=== PATIENT | female | born 2000 | race Caucasian/White ===

== ENCOUNTER 2023-03-23 21:01 | Outpatient (REF) | payer OTHER, SELFPAY ==
[2023-03-27 12:09] LABS: Pap IG (Image Guided) Note (.)
== END 2023-03-23 21:02 | disposition home or self-care (01) ==
LOC: LAB 21:01
PROVIDERS: Visit Provider Obstetrics & Gynecology
DX: R87.612 Low grade squamous intraepithelial lesion on cytologic smear of cervix (LGSIL) (principal); Z12.4 Encounter for screening for malignant neoplasm of cervix
CPT/HCPCS: G0145

== ENCOUNTER 2023-09-22 22:54 | Outpatient (REF) | payer OTHER, SELFPAY ==
[2023-09-25 15:08] LABS: HPV Aptima Negative (Negative); Pap IG (Image Guided) Note (.)
== END 2023-09-22 22:55 | disposition home or self-care (01) ==
LOC: LAB 22:54
PROVIDERS: Visit Provider Obstetrics & Gynecology
DX: R87.610 Atypical squamous cells of undetermined significance on cytologic smear of cervix (ASC-US) (principal)
CPT/HCPCS: 87624

== ENCOUNTER 2024-05-18 19:14 | Outpatient (REF) | payer OTHER, SELFPAY ==
--- OUTSIDE RECORDS SUMMARY | 2024-05-18 19:22 | XMS_ITS | CCD ---
Author Organization [facility] Care Team Providers Care Bell Clerk Name Role Phone HARSHAL ROLDAN Referring Unavailable CAROLE MEYER Primary Care Unavailable Carole Meyer A Primary Care Provider [phone] AMANDEEP ., DR KAUFFMAN Admitting Unavailabl e KARASIK ., DR KAUFFMAN Attending Unavailabl e KARASIK ., DR KAUFFMAN Consulting Unavailabl e KARASIK ., DR KAUFFMAN Admitting Unavailabl e KARASIK ., DR KAUFFMAN Attending Unavailabl e KARASIK ., DR KAUFFMAN Consulting Unavailabl e KARASIK ., DR KAUFFMAN Admitting Unavailabl e KARASIK ., DR KAUFFMAN Attending Unavailabl e KARASIK ., DR KAUFFMAN Consulting Unavailabl e [facility] Primary Care Provider GINNA HINES Attending Unavailable GLOVER, ADAMS Referring Unavailable GLOVER, ADAMS Primary Care Unavailable MANOHAR WARNER Attending Unavailable GLOVER, ADAMS Referring Unavailable GLOVER, ADAMS Primary Care Unavailable GLOVER, ADAMS Referring Unavailable GLOVER, ADAMS Primary Care Unavailable GLOVER, ADAMS Referring Unavailable GLOVER, ADAMS Primary Care Unavailable GLOVER, ADAMS Attending Unavailable GLOVER, ADAMS Referring Unavailable GLOVER, ADAMS Primary Care Unavailable GLOVER, ADAMS Attending Unavailable GLOVER, ADAMS Referring Unavailable GLOVER, ADAMS Primary Care Unavailable GLOVER, ADAMS Attending Unavailable GLOVER, ADAMS Referring Unavailable GLOVER, ADAMS Primary Care Unavailable GLOVER, ADAMS Attending Unavailable GLOVER, ADAMS Referring Unavailable GLOVER, ADAMS Primary Care Unavailable GLOVER, ADAMS Attending Unavailable GLOVER, ADAMS Referring Unavailable GLOVER, ADAMS Primary Care Unavailable GLOVER, ADAMS Attending Unavailable GLOVER, ADAMS Referring Unavailable GLOVER, ADAMS Primary Care Unavailable GLOVER, ADAMS Referring Unavailable GLOVER, ADAMS Primary Care Unavailable GLOVER, ADAMS Referring Unavailable GLOVER, ADAMS Primary Care Unavailable GLOVER, ADAMS Referring Unavailable GLOVER, ADAMS Primary Care Unavailable Allergies Allergy Classification Reported Allergen(s) Allergy Type Date of Onset Reaction(s) Facility (4 sources) Penicillins; Translations: [PENICILLINS] Drug allergy (disorder) 0 [facility] (1 source) Sulfonamides (Antibiotic) Drug allergy (disorder) 0 [facility] (11 sources) Penicillins Propensity to adverse reactions to drug 7 [facility] (14 sources) Sulfonamides (Antibiotic); Translations: [SULFA (SULFONAMIDE ANTIBIOTICS)] Propensity to adverse reactions to drug 7 [facility] Medications Current Medications Medication Drug Class(es) Dates Sig (Normalized) Sig (Original) chlorthalidone 25 mg oral tablet (11 sources) Thiazide-like Diuretic Start: 3 take 1 tablet by mouth once daily chlorthalidone (HYGROTON) 25 mg tablet Take 1 tablet (25 mg total) by mouth daily. 30 tablet 3 08/06/2023 Active 24 hr desvenlafaxine succinate 100 mg extended release oral tablet (11 sources) Serotonin and Norepinephrine Reuptake Inhibitor Start: 3 take 1 tablet by mouth every twenty-four hours in the morning desvenlafaxine (PRISTIQ) 100 mg 24 hr tablet Indications: Moderate episode of recurrent major depressive disorder (CMS-HCC) Take 1 tablet (100 mg total) by mouth in the morning. 90 tablet 3 06/08/2023 Active Ethinyl Estradiol / norgestimate (11 sources) Progestin, Estrogen Start: 0 TRI-SPRINTEC, 28, 0.18/0.215/0.25 mg-35 mcg (28) per tablet lisdexamfetamine dimesylate 40 mg oral capsule (11 sources) Central Nervous System Stimulant Start: End: take 1 capsule by mouth once daily in the morning lisdexamfetamine (VYVANSE) 40 mg capsule Indications: Attention deficit hyperactivity disorder (ADHD), combined type Take 1 capsule (40 mg total) by mouth in the morning. Max Daily Amount: 40 mg. 30 capsule 0 11/06/2023 Active Start: 07-21-2023 take 1 capsule by mo ut once daily in the morning lisdexamfetamine (VYVANSE) 40 mg capsule Indications: Attention deficit hyperactivity disorder (ADHD), combined type Take 1 capsule (40 mg total) by mouth in the morning. Max Daily Amount: 40 mg. 30 capsule 0 07/21/2023 Active loperamide hydrochloride 2 mg oral tablet (7 sources) Opioid Agonist Start: 09-17-2023 take 1 tablet by mouth four times daily as needed for diarrhea loperamide (IMODIUM A-D) 2 mg tablet Take 1 tablet (2 mg total) by mouth 4 (four) times a day as needed for diarrhea. 30 tablet 0 09/17/2023 Active ondansetron 4 mg disintegrating oral tablet (8 sources) Serotonin-3 Receptor Antagonist Start: 12-02-2023 take 1 tablet by mouth every eight hours as needed for nausea and vomiting ondansetron ODT (ZOFRAN ODT) 4 mg disintegrating tablet Dissolve 1 tablet (4 mg total) on tongue every 8 (eight) hours as needed for nausea or vomiting. 20 tablet 0 12/02/2023 Active Start: 03-04-2022 End: 11-04-2023 ondansetron ODT (ZOFRAN ODT) 4 mg disintegrating tablet Dissolve 1 tablet (4 mg total) on tongue 3 (three) times a day as needed for nausea for up to 3 doses. 3 tablet 0 03/04/2022 11/04/2023 Discontinued (Therapy completed) microencapsulated potassium chloride 20 meq extended release oral tablet (9 sources) Start: 11-05-2023 take 1 tablet by mouth in the morning potassium chloride (KLOR-CON M 20) 20 MEQ CR tablet Take 1 tablet (20 mEq total) by mouth in the morning. 30 tablet 2 11/05/2023 Active Start: 09-14-2023 End: 09-28-2023 take 1 tablet by mouth in the morning potassium chloride (KLOR-CON M 20) 20 MEQ CR tablet Take 1 tablet (20 mEq total) by mouth in the morning and 1 tablet (20 mEq total) before bedtime. Do all this for 14 days. 28 tablet 0 09/14/2023 09/28/2023 Active semaglutide, weight loss, (WEGOVY) 0.25 mg/0.5 mL pen injector (7 sources) Start: 11-26-2023 semaglutide, w eight loss, (WEGOVY) 0.25 mg/0.5 mL pen injector Indications: Encounter for weight management , Obesity (BMI 30-39.9) , Mixed hyperlipidemia , Primary hypertension Inject 0.5 mL (0.25 mg total) under the skin every 7 days. 2 mL 0 11/26/2023 Active Start: 11-04-2023 End: 11-26-2023 semaglutide, weight loss, (W EGOVY) 0.25 mg/0.5 mL pen injector Indications: Encounter for weight management , Obesity (BMI 30-39.9) Inject 0.5 mL (0.25 mg total) under the skin every 7 days. 2 mL 0 11/04/2023 11/26/2023 Discontinued (Reorder) Start: 11-04-2023 semaglutide, w eight loss, (WEGOVY) 0.25 mg/0.5 mL pen injector Indications: Encounter for weight management , Obesity (BMI 30-39.9) Inject 0.5 mL (0.25 mg total) under the skin every 7 days. 2 mL 0 11/04/2023 Active valACYclovir 1000 mg oral tablet (17 sources) Herpesvirus Nucleoside Analog DNA Polymerase Inhibitor, Herpes Simplex Virus Nucleoside Analog DNA Polymerase Inhibitor, Herpes Zoster Virus Nucleoside Analog DNA Polymerase Inhibitor Start: 08-27-2020 valACYclovir (VALTR EX) 1000 mg tablet Start: 07-20-2019 End: 11-04-2023 take 1 tablet by mouth once daily as needed valACYclovir (VALTREX) 500 mg tablet Take 1 tablet (500 mg total) by mouth daily as needed. 0 07/20/2019 11/04/2023 Discontinued (Duplicate Listing) Completed/Discontinued Medications Medication Drug Class(es) Dates Sig (Normalized) Sig (Original) hydrOXYzine pamoate 25 mg oral capsule (2 sources) Antihistamine Start: 04-27-2023 End: 09-14-2023 take 1 capsule by mouth three times daily as needed for anxiety hydrOXYzine (VISTARIL) 25 mg capsule Indications: Anxiety with depression Take 1 capsule (25 mg total) by mouth 3 (three) times a day as needed for anxiety. 270 capsule 1 04/27/2023 09/14/2023 Discontinued (Drug interaction) Problems Active Problems Problem Classification Problem Date Documented Date Episodic/Chronic Allergic reactions (2 sources) Urticaria, unspecified; Translations: [Urticaria, unspecified] Onset: 03-23-2024 Episodic Anxiety disorders (20 sources) Generalized anxiety disorder; Translations: [Generalized anxiety disorder] Onset: 03-10-2019 03-10-2019 Chronic Attention-deficit, conduct, and disruptive behavior disorders (11 sources) Attention deficit hyperactivity disorder; Translations: [Attention-deficit hyperactivity disorder, unspecified type] Onset: 09-02-2019 03-29-2020 Chronic Attention-deficit, conduct, and disruptive behavior disorders (1 source) Attention-deficit hyperactivity disorder, combined type; Translations: [Attention-deficit hyperactivity disorder, combined type] Onset: 03-29-2020 Chronic Disorders of lipid metabolism (2 sources) Mixed hyperlipidemia; Translations: [Mixed hyperlipidemia] Onset: 03-23-2024 11-26-2023 Chronic Essential hypertension (16 sources) Essential hypertension; Translations: [Essential (primary) hypertension] Onset: 08-06-2023 08-06-2023 Chronic Immunizations and screening for infectious disease (1 source) Encounter for screening for human papillomavirus (HPV); Translations: [ENC SCREENING HUMAN PAPILLOMAVIRUS] Onset: 11-04-2022 Episodic Malaise and fatigue (3 sources) Chronic fatigue, unspecified; Translations: [Chronic fatigue, unspecified] Onset: 09-14-2023 Chronic Other aftercare (1 source) Other custodial (current) drug therapy; Translations: [Other termite treater (current) drug therapy] Onset: 02-11-2024 Episodic Other connective tissue disease (1 source) Pain in right lower leg; Translations: [Pain of right lower leg] Episodic Other nutritional; endocrine; and metabolic disorders (2 sources) Body mass index 30+ - obesity; Translations: [Obesity, unspecified] 11-04-2023 Chronic Other nutritional; endocrine; and metabolic disorders (1 source) Obesity Onset: 02-11-2024 Chronic Other nutritional; endocrine; and metabolic disorders (1 source) Obesity, unspecified; Translations: [Obesity, unspecified] Onset: 11-04-2023 Chronic Residual codes; unclassified (1 source) Other hypersomnia; Translations: [Other hypersomnia] Onset: 09-14-2023 Chronic Unclassified (1 source) GI Problem Onset: 03-23-2024 Past or Other Problems Problem Classification Problem Date Documented Da te Episodic/Chronic Administrative/social admission (3 sources) Patient encounter status; Translations: [Persons encountering health services in other specified circumstances] Onset: 11-04-2023 11-04-2023 Episodic Cancer of cervix (1 source) Atypical squamous cells of undetermined significance on cytologic smear of cervix (ASC-US); Translations: [ASC US ON CYTOLOGIC SMEAR OF CERVIX] Onset: 01-10-2022 Episodic Fluid and electrolyte disorders (4 sources) Hypokalemia; Translations: [Hypokalemia] Onset: 11-04-2023 11-04-2023 Episodic Mood disorders (11 sources) Mood disorders Onset: 07-02-2023 07-02-2023 Nausea and vomiting (2 sources) Nausea; Translations: [Nausea] Onset: 12-18-2023 Episodic Other screening for suspected conditions (not mental disorders or infectious disease) (6 sources) Encounter for screening for malignant neoplasm of cervix; Translations: [Encounter for screening for lipoid disorders] Onset: 11-03-2022 Episodic Results Test Name Value Interpretation Reference Range Facility CRP [Mass/Vol]on 04-20-2024 C REACTIVE PROTEIN 1.4 mg/dL High 0.000-0.744 [facility] Comment on above: Performed By: #### 8 2477-1, 1987-, 16821-0 #### [facility] ([id number]) [address], [address] [place] [address] ESR Photometric method (Bld) [Velocity]on 04-20-2024 ESR, ERYTHROCYTE SEDIMENTATION RATE <1 Normal 0-20 [facility] Comment on above: Result Comment: (LES S THAN) Performed By: #### 8 2477-, 1987-12, 17881-8 #### [facility] ([id number]) [address], [address] [place] [address] Nuclear Ab IA Ql (S)on 04-20 HIREN Screen w/reflex Negative Normal NEG [facility] Comment on above: Result Comment: Testing performed using multiplex flow immunoassay. Eleven different antigens associated with systemic autoimmune diseases (dsDNA,Sm,Sm/LAUNDRY ROUTE DRIVER,LAUNDRY ROUTE DRIVER,Chromatin, SSA,SSB,Indy-1,Scl70,Ribo P,Centromere B) are included in this screening test. Performed By: #### 8 2477-1, 1987-12, 84230-7 #### [facility] ([id number]) [address], [address] [place] [address] BASIC METABOLIC PANLon 01-27 Anion gap [Moles/Vol] 15 mmol/L Normal 5-15 [facility] Comment on above: Performed By: #### B MP #### [facility] ([id number]) [address], [address] [place] [address] Calcium [Mass/Vol] 9.8 mg/dL Normal 8.5-10.5 [facility] Comment on above: Performed By: #### B MP #### [facility] ([id number]) [address], [address] [place] [address] Chloride [Moles/Vol] 94 mmol/L Low 98-109 [facility] Comment on above: Performed By: #### B MP #### [facility] ([id number]) [address], [address] [place] [address] CO2 [Moles/Vol] 30 mmol/L Normal 22-32 [facility] Comment on above: Performed By: #### B MP #### [facility] ([id number]) [address], [address] [place] [address] Creatinine [Mass/Vol] 0.86 mg/dL Normal 0.40-1.00 [facility] Comment on above: Result Comment: METH OD TRACEABLE TO IDMS STANDARD Performed By: #### B MP #### [facility] ([id number]) [address], [address] [place] [address] eGFR (CKD-EPI) NON-RACE DEPENDENT >90 Normal >59 [facility] Comment on above: Result Comment: Reported eGFR is based on the CKD-EPI 2020 equation that does not use a race coefficient. Performed By: #### B MP #### [facility] ([id number]) [address], [address] [place] [address] Glucose [Mass/Vol] 72 mg/dL Normal 65-99 [facility] Comment on above: Performed By: #### B MP #### [facility] ([id number]) [address], [address] [place] [address] Potassium [Moles/Vol] 3.0 mmol/L Low 3.5-5.0 [facility] Comment on above: Performed By: #### B MP #### [facility] ([id number]) [address], [address] [place] [address] Sodium [Moles/Vol] 139 mmol/L Normal 134-146 [facility] Comment on above: Performed By: #### B MP #### [facility] ([id number]) [address], [address] [place] [address] Urea nitrogen [Mass/Vol] 20 mg/dL Normal 5-23 [facility] Comment on above: Performed By: #### B MP #### [facility] ([id number]) [address], [address] [place] [address] BASIC METABOLIC PANLon 12-20 Anion gap [Moles/Vol] 8 mmol/L Normal 5-15 [facility] Comment on above: Performed By: #### B MP #### [facility] ([id number]) [address], [address] [place] [address] Calcium [Mass/Vol] 9.7 mg/dL Normal 8.5-10.5 [facility] Comment on above: Performed By: #### B MP #### [facility] ([id number]) [address], [address] [place] [address] Chloride [Moles/Vol] 99 mmol/L Normal 98-109 [facility] Comment on above: Performed By: #### B MP #### [facility] ([id number]) [address], [address] [place] [address] CO2 [Moles/Vol] 35 mmol/L High 22-32 [facility] Comment on above: Performed By: #### B MP #### [facility] ([id number]) [address] [place] [address] Creatinine [Mass/Vol] 0.84 mg/dL Normal 0.40-1.00 [facility] Comment on above: Result Comment: METH OD TRACEABLE TO IDMS STANDARD Performed By: #### B MP #### [facility] ([id number]) [address], [address] [place] [address] eGFR (CKD-EPI) NON-RACE DEPENDENT >90 Normal >59 [facility] Comment on above: Result Comment: Reported eGFR is based on the CKD-EPI 2021 equation that does not use a race coefficient. Performed By: #### B MP #### [facility] ([id number]) [address], [address] [place] [address] Glucose [Mass/Vol] 91 mg/dL Normal 65-99 [facility] Comment on above: Performed By: #### B MP #### [facility] ([id number]) [address] [place] [address] Potassium [Moles/Vol] 3.0 mmol/L Low 3.5-5.0 [facility] Comment on above: Performed By: #### B MP #### [facility] ([id number]) [address], [address] [place] [address] Sodium [Moles/Vol] 142 mmol/L Normal 134-146 [facility] Comment on above: Performed By: #### B MP #### [facility] ([id number]) [address], [address] [place] [address] Urea nitrogen [Mass/Vol] 19 mg/dL Normal 5-23 [facility] Comment on above: Performed By: #### B MP #### [facility] ([id number]) [address], [address] [place] [address] BASIC METABOLIC PANLon 11-03 Anion gap [Moles/Vol] 12 mmol/L Normal 5-15 [facility] Comment on above: Performed By: #### B MP #### [facility] ([id number]) [address], [address] [place] [address] Calcium [Mass/Vol] 9.7 mg/dL Normal 8.5-10.5 [facility] Comment on above: Performed By: #### B MP #### [facility] ([id number]) [address], [address] [place] [address] Chloride [Moles/Vol] 96 mmol/L Low 98-109 [facility] Comment on above: Performed By: #### B MP #### [facility] ([id number]) [address], [address] [place] [address] CO2 [Moles/Vol] 32 mmol/L Normal 22-32 [facility] Comment on above: Performed By: #### B MP #### [facility] ([id number]) [address], [address] [place] [address] Creatinine [Mass/Vol] 0.82 mg/dL Normal 0.40-1.00 [facility] Comment on above: Result Comment: METH OD TRACEABLE TO IDMS STANDARD Performed By: #### B MP #### [facility] ([id number]) [address], [address] [place] [address] eGFR (CKD-EPI) NON-RACE DEPENDENT >90 Normal >59 [facility] Comment on above: Result Comment: Reported eGFR is based on the CKD-EPI 2020 equation that does not use a race coefficient. Performed By: #### B MP #### [facility] ([id number]) [address], [address] [place] [address] Glucose [Mass/Vol] 99 mg/dL Normal 65-99 [facility] Comment on above: Performed By: #### B MP #### [facility] ([id number]) [address], [address] [place] [address] Potassium [Moles/Vol] 3.1 mmol/L Low 3.5-5.0 [facility] Comment on above: Performed By: #### B MP #### [facility] ([id number]) [address], [address] [place] [address] Sodium [Moles/Vol] 140 mmol/L Normal 134-146 [facility] Comment on above: Performed By: #### B MP #### [facility] ([id number]) [address], [address] [place] [address] Urea nitrogen [Mass/Vol] 13 mg/dL Normal 5-23 [facility] Comment on above: Performed By: #### B MP #### [facility] ([id number]) [address], [address] [place] [address] Basic Metabolic Panelon 03-0 Anion gap [Moles/Vol] 12 mmol/L 5 - 15 mmol/L [facility] Calcium [Mass/Vol] 9.7 mg/dL 8.5 - 10. 5 mg/dL [facility] Chloride [Moles/Vol] 96 mmol/L Low 98 - 10 9 mmol/L [facility] CO2 [Moles/Vol] 32 mmol/L 22 - 32 mmol/L [facility] Creatinine [Mass/Vol] 0.82 mg/dL 0.40 - 1.00 mg/dL [facility] Comment on above: METHOD TRACEABLE TO [facility] STANDARD eGFR (CKD-EPI)non-race dependent - PINF [facility] Comment on above: Reported eGFR is based on the CKD-EPI 2020 equation that does not use a race coefficient. Glucose [Mass/Vol] 99 mg/dL 65 - 99 mg/dL [facility] Interpretation and review of laboratory results Abnormal [facility] Potassium [Moles/Vol] 3.1 mmol/L Low 3.5 - 5.0 mmol/L [facility] Sodium [Moles/Vol] 140 mmol/L 134 - 146 mmol/L [facility] Urea nitrogen [Mass/Vol] 13 mg/dL 5 - 23 mg/dL [facility] CBC AND AUTO DIFFon 09-14-19 24 ABSOLUTE BASOPHIL 0.0 X10E9/L Normal 0.0-0.2 [facility] Comment on above: Performed By: #### C KARISSA LUZ, 81308-4, TSHR, 2132-05, 11714-0 #### [facility] ([id number]) [address], [address] [place] [address] ABSOLUTE NEUTROPHIL 7.9 X10E9/L High 1.5-6.6 [facility] Comment on above: Performed By: #### C BCA, CMP, 41177-8, TSHR, 2132-05, 23189-9 #### [facility] ([id number]) [address], [address] [place] [address] Basophils/100 WBC (Bld) 0.2 % Normal [facility] Comment on above: Performed By: #### C BCA, CMP, 55848-7, TSHR, 2132-05, #### [facility] ([id number]) [address] [place] [address] Eosinophils (Bld) [#/Vol] 0.0 10*3/uL Normal 0.0-0.4 [facility] Comment on above: Performed By: #### C BCA, CMP, 63221-4, TSHR, 2132-05, 02779-9 #### [facility] ([id number]) [address] [place] [address] Eosinophils/100 WBC (Bld) 0.0 % Normal [facility] Comment on above: Performed By: #### C BCA, CMP, 96379-7, TSHR, 2132-05, 65451-7 #### [facility] ([id number]) [address] [place] [address] Erythrocyte distribution width (RBC) [Ratio] 13.8 % Normal 11.5-15.0 [facility] Comment on above: Performed By: #### C BCA, CMP, 72466-2, TSHR, 2132-05, 92161-4 #### [facility] ([id number]) [address] [place] [address] Hematocrit (Bld) [Volume fraction] 37.5 % Normal 35-47 [facility] Comment on above: Performed By: #### C BCA, CMP, 55285-2, TSHR, 2132-05, 05900-8 #### [facility] ([id number]) [address] [place] [address] Hemoglobin (Bld) [Mass/Vol] 12.8 g/dL Normal 11.7-15.5 [facility] Comment on above: Performed By: #### C BCA, CMP, 58309-6, TSHR, 2132-05, 25547-1 #### [facility] ([id number]) [address] [place] [address] Lymphocytes (Bld) [#/Vol] 1.8 10*3/uL Normal 1.0-3.5 [facility] Comment on above: Performed By: #### C BCA, CMP, 03952-7, TSHR, 2132-05, 60626-0 #### [facility] ([id number]) [address], [facility] [address] [place] [address] Lymphocytes/100 WBC (Bld) 17.6 % Normal [facility] Comment on above: Performed By: #### C BCA, CMP, 38016-7, TSHR, 2132-05, 14041-6 #### [facility] ([id number]) [address], [facility] [address] [place] [address] MCH (RBC) [Entitic mass] 30.5 pg Normal 27-34 [facility] Comment on above: Performed By: #### C BCA, CMP, 02967-7, TSHR, 2132-05, 43635-0 #### [facility] ([id number]) [address], [facility] [address] [place] [address] MCHC (RBC) [Mass/Vol] 34.0 g/dL Normal 32-36 [facility] Comment on above: Performed By: #### C BCA, CMP, 47535-5, TSHR, 2132-05, 65775-7 #### [facility] ([id number]) [address], [facility] [address] [place] [address] MCV (RBC) [Entitic vol] 90 fL Normal 80-100 [facility] Comment on above: Performed By: #### C BCA, CMP, 97799-8, TSHR, 2132-05, 34075-9 #### [facility] ([id number]) [address] [place] [address] Monocytes (Bld) [#/Vol] 0.7 10*3/uL Normal 0-0.9 [facility] Comment on above: Performed By: #### C BCA, CMP, 96451-4, TSHR, 2132-05, 42711-8 #### [facility] ([id number]) [address], [address] [place] [address] Monocytes/100 WBC (Bld) 6.2 % Normal [facility] Comment on above: Performed By: #### C BCA, CMP, 03331-8, TSHR, 2132-05, 17428-8 #### [facility] ([id number]) [address], [facility] [address] [place] [address] Neutrophils/100 WBC (Bld) 76.0 % Normal [facility] Comment on above: Performed By: #### C BCA, CMP, 63551-9, TSHR, 2132-05, 70680-4 #### [facility] ([id number]) [address], [address] [place] [address] Platelet mean volume (Bld) [Entitic vol] 9.8 fL Normal 7-12 [facility] Comment on above: Performed By: #### C BCA, CMP, 91456-6, TSHR, 2132-05, 12916-1 #### [facility] ([id number]) [address], [address] [place] [address] Platelets (Bld) [#/Vol] 332 10*3/uL Normal 150-450 [facility] Comment on above: Performed By: #### C BCA, CMP, 02949-7, TSHR, 2132-05, 82968-8 #### [facility] ([id number]) [address], [address] [place] [address] RBC COUNT 4.18 X10E12/L Normal 3.80-5.20 [facility] Comment on above: Performed By: #### C BCA, CMP, 51119-6, TSHR, 9, 87382-4 #### [facility] ([id number]) [address], [address] [place] [address] WBC (Bld) [#/Vol] 10.5 10*3/uL Normal 4.0-11.0 [facility] Comment on above: Performed By: #### C BCA, CMP, 44921-4, TSHR, 2132-05, 21617-9 #### [facility] ([id number]) [address], [address] [place] [address] COMPREHENSIVE METABOLIC PANE Henry 09-14-2023 Albumin [Mass/Vol] 4.1 g/dL Normal 3.2-5.3 [facility] Comment on above: Performed By: #### C BCA, CMP, 62936-8, TSHR, 2132-05, 95669-6 #### [facility] ([id number]) [address], [address] [place] [address] ALP [Catalytic activity/Vol] 92 U/L Normal 39-130 [facility] Comment on above: Performed By: #### C BCA, CMP, 47266-6, TSHR, 2132-05, 66528-3 #### [facility] ([id number]) [address], [address] [place] [address] ALT [Catalytic activity/Vol] 8 U/L Normal 0-31 [facility] Comment on above: Performed By: #### C BCA, CMP, 22545-4, TSHR, 2132-05, 14805-2 #### [facility] ([id number]) [address], [address] [place] [address] Anion gap [Moles/Vol] 13 mmol/L Normal 5-15 [facility] Comment on above: Performed By: #### C BCA, CMP, 78606-8, TSHR, 2132-05, 39868-7 #### [facility] ([id number]) [address], [address] [place] [address] AST [Catalytic activity/Vol] 14 U/L Normal 0-41 [facility] Comment on above: Performed By: #### C BCA, CMP, 34991-1, TSHR, 2132-05, 09253-0 #### [facility] ([id number]) [address], [address] [place] [address] Bilirubin [Mass/Vol] 0.4 mg/dL Normal 0.3-1.2 [facility] Comment on above: Performed By: #### C BCA, CMP, 12053-8, TSHR, 2132-05, 02199-1 #### [facility] ([id number]) [address], [address] [place] [address] Calcium [Mass/Vol] 9.4 mg/dL Normal 8.5-10.5 [facility] Comment on above: Performed By: #### C BCA, CMP, 99063-8, TSHR, 2132-05, 93216-0 #### [facility] ([id number]) [address], [address] [place] [address] Chloride [Moles/Vol] 96 mmol/L Low 98-109 [facility] Comment on above: Performed By: #### C BCA, CMP, 87503-8, TSHR, 2132-05, 33906-4 #### [facility] ([id number]) [address], [address] [place] [address] CO2 [Moles/Vol] 30 mmol/L Normal 22-32 [facility] Comment on above: Performed By: #### C BCA, CMP, 22151-7, TSHR, 2132-05, 49357-6 #### [facility] ([id number]) [address], [address] [place] [address] Creatinine [Mass/Vol] 1.05 mg/dL High 0.40-1.00 [facility] Comment on above: Result Comment: METH OD TRACEABLE TO IDMS STANDARD Performed By: #### C BCA, CMP, 21785-0, TSHR, 2132-05, 50065-5 #### [facility] ([id number]) [address], [address] [place] [address] GFR/1.73 sq M.predicted among non-blacks MDRD (S/P/Bld) [Vol rate/Area] 76 mL/min/{1.73_m2} Normal >59 [facility] Comment on above: Result Comment: Reported eGFR is based on the CKD-EPI 2020 equation that does not use a race coefficient. Performed By: #### C BCA, CMP, 37475-8, TSHR, 2132-05, 64285-0 #### [facility] ([id number]) [address], [address] [place] [address] Glucose [Mass/Vol] 84 mg/dL Normal 65-99 [facility] Comment on above: Performed By: #### C BCA, CMP, 20963-0, TSHR, 2132-05, 14914-3 #### [facility] ([id number]) [address], [address] [place] [address] Potassium [Moles/Vol] 3.1 mmol/L Low 3.5-5.0 [facility] Comment on above: Performed By: #### C BCA, CMP, 61443-2, TSHR, 2132-05, 75476-8 #### [facility] ([id number]) [address], [address] [place] [address] Protein [Mass/Vol] 7.9 g/dL Normal 6.0-8.0 [facility] Comment on above: Performed By: #### C BCA, CMP, 35853-9, TSHR, 2132-05, 90614-3 #### [facility] ([id number]) [address], [address] [place] [address] Sodium [Moles/Vol] 139 mmol/L Normal 134-146 [facility] Comment on above: Performed By: #### C BCA, CMP, 97785-1, TSHR, 2132-05, 59378-0 #### [facility] ([id number]) [address], [address] [place] [address] Urea nitrogen [Mass/Vol] 22 mg/dL Normal 5-23 [facility] Comment on above: Performed By: #### Clarke BCA, CMP, 87047-2, TSHR, 2132-05, 54833-4 #### [facility] ([id number]) [address], [address] [place] [address] Lipid 1996 panelon 4 Cholesterol [Mass/Vol] 228 mg/dL High 150-200 [facility] Comment on above: Performed By: ###Phoenix Mir BCA, CMP, 37495-2, TSHR, 2132-05, 73935-5 #### [facility] ([id number]) [address], [address] [place] [address] Cholesterol in HDL [Mass/Vol] 77 mg/dL Normal >39 [facility] Comment on above: Result Comment: HDL <40 mg/dL - High Risk HDL > or = 40mg/dL- Desirable HDL >60 mg/dL - Negative Risk Performed By: #### C BCA, CMP, 96280-6, TSHR, 2132-05, 93455-0 #### [facility] ([id number]) [address], [address] [place] [address] Cholesterol in LDL [Mass/Vol] 118 mg/dL Normal <130 [facility] Comment on above: Result Comment: LDL <100 mg/dL - Desirable LDL >160 mg/dL - High Risk Performed By: #### C BCA, CMP, 37901-5, TSHR, 2132-05, 89442-0 #### [facility] ([id number]) [address], [address] [place] [address] Cholesterol in VLDL [Mass/Vol] 33 mg/dL High 0-30 [facility] Comment on above: Performed By: #### C BCA, CMP, 39148-0, TSHR, 2132-05, 26570-7 #### [facility] ([id number]) [address], [address] [place] [address] CHOLESTEROL:HDL 3.0 Normal 1.0-5.0 [facility] Comment on above: Performed By: #### C BCA, CMP, 26921-4, TSHR, 2132-05, 59110-7 #### [facility] ([id number]) [address], [address] [place] [address] Triglyceride [Mass/Vol] 165 mg/dL High 27-150 [facility] Comment on above: Performed By: #### C BCA, CMP, 89630-6, TSHR, 2132-05, 17667-5 #### [facility] ([id number]) [address], [address] [place] [address] TSH WITH REFLEXon 09-14-2023 TSH 4.51 uIU/mL Normal 0.49-4.67 [facility] Comment on above: Performed By: #### C BCA, CMP, 64039-7, TSHR, 2132-05, 54457-3 #### [facility] ([id number]) [address], [address] [place] [address] VITAMIN B12on 09-14-2023 Cobalamin (Vitamin B12) [Mass/Vol] 211 pg/mL Normal 180-914 [facility] Comment on above: Performed By: #### C BCA, CMP, 87621-6, TSHR, 2132-05, 31806-8 #### [facility] ([id number]) [address] [facility], [address] [place] [address] Vitamin D+Metabolites [Mass/ Vol]on 09-14-2023 VITAMIN D 25 HYD TOT 72.7 ng/mL Normal 30-100 [facility] Comment on above: Result Comment: Vitamin D status 25 [place] Vitamin D Deficiency <20 ng/mL Insufficiency 20-29 ng/mL Sufficiency 30-100 ng/mL Toxicity >100 ng/mL NOTE: A pediatric reference range has not been established by the griddle attendant of this kit. The [place] [employer] recommends a Vitamin D level of = or >20ng/mL in infants and children. Performed By: #### C BCA, CMP, 57848-8, TSHR, 2132-9, 87136-2 #### [facility] ([id number]) [address] [place] [address], [address] [place] [address] PAP ACOG PANEL 2: 21 to 29on 11-13-2022 . . Normal [facility] Comment on above: Performed By: #### 4 160243 #### [facility] [address] [place] [address] Dr. Jerman Guallpa Age Gdln ACOG Testing 21-29 Normal [facility] Comment on above: Performed By: #### 4 562539 #### [facility] [address] [address] [address] Jerman Guallpa DIAGNOSIS: Comment Abnormal [facility] Comment on above: Result Comment: EPIT HELIAL CELL ABNORMALITY. LOW GRADE SQUAMOUS INTRAEPITHELIAL LESION (LSIL). FUNGAL ORGANISMS MORPHOLOGICALLY CONSISTENT WITH MIKE SPECIES ARE PRESENT. Performed By: #### 4 280592 #### [facility] [address] [address] [address] Jerman Guallpa Electronically signed by: Comment Normal [facility] Comment on above: Result Comment: June Pablo MD, Pathologist Performed By: #### 4 213653 #### [facility] [address] [place] [address] Dr. Jerman Guallpa Methodology: Comment Normal [facility] Comment on above: Result Comment: This liquid based ThinPrep(R) pap test was screened with the use of an image guided system. Performed By: #### 4 713332 #### [facility] [address] [place] [address] Dr. Jerman Guallpa Note: Comment Normal [facility] Comment on above: Result Comment: The Pap smear is a screening test designed to aid in the detection of premalignant and malignant conditions of the uterine cervix. It is not a diagnostic procedure and should not be used as the sole means of detecting cervical cancer. Both false-positive and false-negative reports do occur. . Performed By: #### 4 964143 #### [facility] [address] [place] [address] Dr. Jerman Guallpa Pathologist Provided ICD10 Comment Normal [facility] Comment on above: Result Comment: R87. 612, R87.5 Performed By: #### 4 228868 #### [facility] [address] [place] [address] Dr. Jerman Guallpa Performed by: Comment Normal [facility] Comment on above: Result Comment: Alma Miller, Blueprint Assembler (ASCP) Performed By: #### 4 082360 #### [facility] [address] [place] [address] Dr. Jerman Guallpa Recommendation: Comment Abnormal [facility] Comment on above: Result Comment: Sugg est follow up as clinically appropriate. Performed By: #### 4 224107 #### [facility] [address] [place] [address] Dr. Jerman Guallpa Reflex Criteria: Comment Normal [facility] Comment on above: Result Comment: The HPV DNA reflex criteria were not met with this specimen result therefore, no HPV testing was performed. . Performed By: #### 4 [id number] #### [facility] [address] [place] [address] Dr. Jerman Guallpa Specimen adequacy: Comment Normal [facility] Comment on above: Result Comment: Sati sfactory for evaluation. Endocervical and/or squamous metaplastic cells (endocervical component) are present. Performed By: #### 4 981529 #### [facility] [address] [place] [address] Dr. Jerman Guallpa PAP ACOG PANEL 2: 21 to 29on 06-04-2022 . . Normal [facility] Comment on above: Performed By: #### 4 258643 #### [facility] [address] [place] [address] Dr. Jerman Guallpa Age Gdln ACOG Testing - Normal [facility] Comment on above: Performed By: #### 4 [id number] #### [facility] [address] [place] [address] Dr. Jerman Guallpa DIAGNOSIS: Comment Abnormal [facility] Comment on above: Result Comment: EPIT HELIAL CELL ABNORMALITY. ATYPICAL SQUAMOUS CELLS OF UNDETERMINED SIGNIFICANCE (ASC-US). FUNGAL ORGANISMS MORPHOLOGICALLY CONSISTENT WITH MIKE SPECIES ARE PRESENT. Performed By: #### 4 831659 #### [facility] [address] [place] [address] Dr. Jerman Guallpa Electronically signed by: Comment Normal [facility] Comment on above: Result Comment: Fernanda Rodriguez MD, Pathologist Performed By: #### 4 927184 #### [facility] [address] [place] [address] Dr. Jerman Guallpa HPV Aptima Negative Normal Negative [facility] Comment on above: Result Comment: This nucleic acid amplification test detects fourteen high-risk HPV types (16,18,31,33,35,39,45,51,52,56,58,59,66,68) without differentiation. Performed By: #### 4 476136 #### [facility] [address] [place] [address] Dr. Jerman Guallpa Methodology: Comment Normal [facility] Comment on above: Result Comment: This liquid based ThinPrep(R) pap test was screened with the use of an image guided system. Performed By: #### 4 755458 #### [facility] [address] [place] [address] Dr. Jerman Guallpa Note: Comment Normal [facility] Comment on above: Result Comment: The Pap smear is a screening test designed to aid in the detection of premalignant and malignant conditions of the uterine cervix. It is not a diagnostic procedure and should not be used as the sole means of detecting cervical cancer. Both false-positive and false-negative reports do occur. . Performed By: #### 4 087559 #### [facility] [address] [address] [address] Jerman Guallpa Pathologist Provided ICD10 Comment Normal [facility] Comment on above: Result Comment: R87. 610, R87.5 Performed By: #### 4 150327 #### [facility] [address] [address] [address] Jerman Guallpa Performed by: Comment Normal [facility] Comment on above: Result Comment: Jodi Parikh, Blueprint Assembler Performed By: #### 4 125942 #### [facility] [address] [place] [address] Dr. Jerman Guallpa Recommendation: Comment Abnormal [facility] Comment on above: Result Comment: Sugg est follow up as clinically appropriate. Performed By: #### 4 802260 #### [facility] [address] [address] [address] Jerman Guallpa Reflex Criteria: Comment Normal [facility] Comment on above: Result Comment: See below for HPV testing results. . Performed By: #### 4 [id number] #### [facility] [address] [address] [address] Jerman Guallpa Specimen adequacy: Comment Normal [facility] Comment on above: Result Comment: Sati sfactory for evaluation. Endocervical and/or squamous metaplastic cells (endocervical component) are present. Performed By: #### 4 394753 #### [facility] [address] [address] [address] Jerman Guallpa PAP ACOG PANEL 2: 21 to 29on 01-14-2022 . . Normal [facility] Comment on above: Performed By: #### 4 112591 #### [facility] [address] [address] [address] Jerman Guallpa Age Gdln ACOG Testing 21-29 Normal [facility] Comment on above: Performed By: #### 4 651997 #### [facility] [address] [place] [address] Dr. Jerman Guallap DIAGNOSIS: Comment Abnormal [facility] Comment on above: Result Comment: EPIT HELIAL CELL ABNORMALITY. LOW GRADE SQUAMOUS INTRAEPITHELIAL LESION (LSIL). FUNGAL ORGANISMS MORPHOLOGICALLY CONSISTENT WITH MIKE SPECIES ARE PRESENT. Performed By: #### 4 154321 #### [facility] [address] [address] [address] Jerman Guallpa Electronically signed by: Comment Normal [facility] Comment on above: Result Comment: Mary Marie MD, Pathologist Performed By: #### 4 956242 #### [facility] [address] [place] [address] Dr. Jerman Guallpa Methodology: Comment Normal [facility] Comment on above: Result Comment: This liquid based ThinPrep(R) pap test was screened with the use of an image guided system. Performed By: #### 4 966606 #### [facility] [address] [place] [address] Dr. Jerman Guallpa Note: Comment Normal [facility] Comment on above: Result Comment: The Pap smear is a screening test designed to aid in the detection of premalignant and malignant conditions of the uterine cervix. It is not a diagnostic procedure and should not be used as the sole means of detecting cervical cancer. Both false-positive and false-negative reports do occur. . Performed By: #### 4 442707 #### [facility] [address] [place] [address] Dr. Jerman Guallpa Pathologist Provided ICD10 Comment Normal [facility] Comment on above: Result Comment: R87. 612, R87.5 Performed By: #### 4 510507 #### [facility] [address] [place] [address] Dr. Jerman Guallpa Performed by: Comment Normal [facility] Comment on above: Result Comment: Skye Espinal, Blueprint Assembler (ASCP) Performed By: #### 4 263053 #### [facility] [address] [place] [address] Dr. Jerman Guallpa Recommendation: Comment Abnormal [facility] Comment on above: Result Comment: Sugg est follow up as clinically appropriate. Performed By: #### 4 592389 #### [facility] [address] [address] [address] Jerman Guallpa Reflex Criteria: Comment Normal [facility] Comment on above: Result Comment: The HPV DNA reflex criteria were not met with this specimen result therefore, no HPV testing was performed. . Performed By: #### 4 106713 #### [facility] [address] [address] [address] Jerman Guallpa Specimen adequacy: Comment Normal [facility] Comment on above: Result Comment: Sati sfactory for evaluation. Endocervical and/or squamous metaplastic cells (endocervical component) are present. Performed By: #### 4 255040 #### [facility] [address] [address] [address] Jerman Guallpa VL DUP LOWER EXTREMITY VENOU S RIGHTon 11-05-2020 [facility] Vascular Lower Extremities DVT Study Procedure Patient Name RAMAN OSORIO Date of Study 11/05/2020 R Date of 2000 Gender Female Age 20 year(s) Race Room Number Corporate ID # [id number] Patient MR # [id number] Manager Intensive Care Unit Jennie Palumbo RVT Interpreting Physician Osiris Scott MD Referring Referring Physician Nurse Practitioner Additional Comments Exam ordered by Harshal Roldan CNP Procedure Type of Study: Veins: Lower Extremities DVT Study, Venous Scan Lower Right. Patient Status:Out Patient. Technical Quality:Adequate visualization. Comments:INDICATIONS: Right leg edema (R22.41) Right calf pain (M79.661) Conclusions Summary No evidence of superficial or deep venous thrombosis in the right lower extremity. Signature Findings: Right Impression: Common femoral, femoral, deep femoral, popliteal, tibials, peroneal, and saphenous veins were evaluated. All veins were compressible and with normal doppler responses. Velocities are measured in cm/s ; Diameters are measured in cm Right Lower Extremities DVT Study Measurements Right 2D Measurements + +------ ----+ +- ---------+ !Location !Visualized!Compressib ility!Thrombosis! + +------ ----+ +- ---------+ !Common Femoral !Yes !Yes !None ! + +------ ----+ +- ---------+ !Prox Femoral !Yes !Yes !None ! + +------ ----+ +- ---------+ !Mid Femoral !Yes !Yes !None ! + +------ ----+ +- ---------+ !Dist Femoral !Yes !Yes !None ! + +------ ----+ +- ---------+ !Deep Femoral !Yes !Yes !None ! + +------ ----+ +- ---------+ !Popliteal !Yes !Yes !None ! + +------ ----+ +- ---------+ !Sapheno Femoral Junction !Yes !Yes !None ! + +------ ----+ +- ---------+ !PTV !Yes !Yes !None ! + +------ ----+ +- ---------+ !Peroneal !Yes !Yes !None ! + +------ ----+ +- ---------+ !Gastroc !Yes !Yes !None ! + +------ ----+ +- ---------+ !GSV Thigh !Yes !Yes !None ! + +------ ----+ +- ---------+ !GSV Knee !Yes !Yes !None ! + +------ ----+ +- ---------+ !GSV Ankle !Yes !Yes !None ! + +------ ----+ +- ---------+ !SSV !Yes !Yes !None ! + +------ ----+ +- ---------+ Right Doppler Measurements + ------+------+------+- ---------+ !Location !Signal!Reflux!Reflux (msec) ! + ------+------+------+- ---------+ !Common Femoral !Phasic! ! ! + ------+------+------+- ---------+ !Prox Femoral !Phasic! ! ! + ------+------+------+- ---------+ !Popliteal !Phasic! ! ! + ------+------+------+- ---------+ [employer] Work Phone: Shiva, pn Incoming Cardio Results From Cpacs/Ge - 11/05/2020 4:31 PM EST [facility] Vascular Lower Extremities DVT Study Procedure Patient Name RAMAN OSORIO Date of Study 11/05/2020 R Date of 2000 Gender Female Age 20 year(s) Race Room Number Corporate ID # [id number] Patient MR # [id number] Manager Intensive Care Unit Jennie Palumbo RVT Interpreting Physician Osiris Scott MD Referring Referring Physician Nurse Practitioner Additional Comments Exam ordered by Harshal Roldan CNP Procedure Type of Study: Veins: Lower Extremities DVT Study, Venous Scan Lower Right. Patient Status:Out Patient. Technical Quality:Adequate visualization. Comments:INDICATIONS: Right leg edema (R22.41) Right calf pain (M79.661) Conclusions Summary No evidence of superficial or deep venous thrombosis in the right lower extremity. Signature Findings: Right Impression: Common femoral, femoral, deep femoral, popliteal, tibials, peroneal, and saphenous veins were evaluated. All veins were compressible and with normal doppler responses. Velocities are measured in cm/s ; Diameters are measured in cm Right Lower Extremities DVT Study Measurements Right 2D Measurements + +------ ----+ +- --------- + !Location !Visualized!Compressib ility!Thrombosis! + +------ ----+ +- --------- + !Common Femoral !Yes !Yes !None ! + +------ ----+ +- --------- + !Prox Femoral !Yes !Yes !None ! + +------ ----+ +- --------- + !Mid Femoral !Yes !Yes !None ! + +------ ----+ +- --------- + !Dist Femoral !Yes !Yes !None ! + +------ ----+ +- --------- + !Deep Femoral !Yes !Yes !None ! + +------ ----+ +- --------- + !Popliteal !Yes !Yes !None ! + +------ ----+ +- --------- + !Sapheno Femoral Junction !Yes !Yes !None ! + +------ ----+ +- --------- + !PTV !Yes !Yes !None ! + +------ ----+ +- --------- + !Peroneal !Yes !Yes !None ! + +------ ----+ +- --------- + !Gastroc !Yes !Yes !None ! + +------ ----+ +- --------- + !GSV Thigh !Yes !Yes !None ! + +------ ----+ +- --------- + !GSV Knee !Yes !Yes !None ! + +------ ----+ +- --------- + !GSV Ankle !Yes !Yes !None ! + +------ ----+ +- --------- + !SSV !Yes !Yes !None ! + +------ ----+ +- --------- + Right Doppler Measurements + ------+------+------+- --------- + !Location !Signal!Reflux!Reflux (msec) ! + ------+------+------+- --------- + !Common Femoral !Phasic! ! ! + ------+------+------+- --------- + !Prox Femoral !Phasic! ! ! + ------+------+------+- --------- + !Popliteal !Phasic! ! ! + ------+------+------+- --------- + [employer] Work Phone: Vital Signs Date Time Vital Sign Value Performing Clinician Jada rene 11-04-2023 15:05-0500 Body height 165.1 cm Adams Glover [employer] MACHINE OPERATOR-MOLD YARD SUPERVISOR Work Phone: [facility] 11-04-2023 15:05-0500 Body mass index (BMI) [Ratio] 31.38 kg/m2 Adams Glover VENEER TAPING MACHINE OPERATOR-MOLD YARD SUPERVISOR Work Phone: [facility] 11-04-2023 15:05-0500 Body temperature 98.1 [degF] Adams Glover VENEER TAPING MACHINE OPERATOR-MOLD YARD SUPERVISOR Work Phone: [facility] 11-04-2023 15:05-0500 Body weight 85.55 kg Adams Glover VENEER TAPING MACHINE OPERATOR-MOLD YARD SUPERVISOR Work Phone: [facility] 11-04-2023 15:05-0500 Diastolic blood pressure 70 mm[Hg] Adams Glover VENEER TAPING MACHINE OPERATOR-MOLD YARD SUPERVISOR Work Phone: [facility] 11-04-2023 15:05-0500 Heart rate 85 /min Adams Glover VENEER TAPING MACHINE OPERATOR-MOLD YARD SUPERVISOR Work Phone: [facility] 11-04-2023 15:05-0500 SaO2% (BldA) [Mass fraction] 99 % Adams Glover VENEER TAPING MACHINE OPERATOR-MOLD YARD SUPERVISOR Work Phone: [facility] 11-04-2023 15:05-0500 Systolic blood pressure 122 mm[Hg] Adams Glover VENEER TAPING MACHINE OPERATOR-MOLD YARD SUPERVISOR Work Phone: [facility] Encounters Encounter Date Encounter Type Care Provider Facility Start: 04-20-2024 End: 04-20-2024 ambulatory [facility] Start: 04-20-2024 End: 04-20-2024 ambulatory [facility] Start: 03-23-2024 End: 03-23-2024 ambulatory [facility] Start: 03-09-2024 ambulatory [facility] Start: 02-11-2024 End: 02-11-2024 ambulatory [facility] Start: 01-28-2024 End: 01-29-2024 ambulatory [facility] Start: 12-22-2023 End: 12-22-2023 ambulatory MANOHAR WARNER [facility] Start: 12-21-2023 End: 12-22-2023 ambulatory [facility] Start: 12-21-2023 Encounter for genera l adult medical examination without abnormal findings [facility] Start: 12-18-2023 End: 12-18-2023 ambulatory [facility] Start: 12-18-2023 End: 12-18-2023 ambulatory [facility] Start: 12-02-2023 Orders Only Adams medel VENEER TAPING MACHINE OPERATOR-MOLD YARD SUPERVISOR Work Phone: [facility] Comment on above: Medication Problem Start: 11-26-2023 Orders Only Adams Roja s VENEER TAPING MACHINE OPERATOR-MOLD YARD SUPERVISOR Work Phone: [facility] Comment on above: Mixed hyperlipidemia (Primary Dx); Encounter for weight management; Obesity (BMI 30-39.9); Primary hypertension Start: 11-06-2023 Orders Only Octavia hamilton VENEER TAPING MACHINE OPERATOR-MOLD YARD SUPERVISOR Work Phone: [facility] Start: 11-05-2023 Orders Only Adams Roja iganfranco VENEER TAPING MACHINE OPERATOR-MOLD YARD SUPERVISOR Work Phone: [facility] Start: 11-04-2023 End: 11-04-2023 ambulatory [facility] Start: 11-04-2023 End: 11-04-2023 ambulatory [facility] Start: 11-04-2023 End: 11-04-2023 Office outpatient visit 10 minutes Adamsbobby Glover VENEER TAPING MACHINE OPERATOR-MOLD YARD SUPERVISOR Work Phone: [facility] Comment on above: Primary hypertension (Primary Dx); Hypokalemia; Encounter for weight management; Obesity (BMI 30-39.9) Start: 09-22-2023 End: 09-22-2023 ambulatory GINNA HINES Not Available Start: 09-17-2023 Orders Only Adams medel VENEER TAPING MACHINE OPERATOR-MOLD YARD SUPERVISOR [facility] Phone: [facility] Comment on above: Diarrhea Start: 09-15-2023 Telephone encounter Nicolasa Cuba HERMAN [facility] Start: 09-14-2023 End: 09-15-2023 Orders Only Adams Esa VENEER TAPING MACHINE OPERATOR-MOLD YARD SUPERVISOR Work Phone: [facility] Start: 09-02-2023 Orders Only Manohra Warner MD Work Phone: [facility] Start: 11-03-2022 End: 11-03-[address] DALY BERNSTEIN . Facility:[facility] Start: 05-28-2022 Encounter for cervic al smear to confirm findings of recent normal smear following initial abnormal smear DR DALY BERNSTEIN . [facility] Start: 05-26-2022 End: 05-26-[address] DALY BERNSTEIN . Facility:[facility] Start: 05-26-2022 End: 05-26-2022 Encounter for cervical smear to confirm findings of recent normal smear following initial abnormal smear DR DALY BERNSTEIN . Facility:[facility] Start: 01-08-2022 End: 01-08-[address] DALY BERNSTEIN . Facility:[facility] Start: 11-05-2020 End: 11-08-2020 [facility] Start: 11-05-2020 End: 11-07-2020 Subsequent hospital visit by physician [facility] Comment on above: Pain of right lower leg Procedures Date Procedure Procedure Detail Performing Clinician Start: 11-04-2023 Follow-up visit Follow-up RAJAT RA PERESJAS Start: 07-02-2023 Adult depression screening assessment Manohar Warner MD Work Phone: Start: 11-05-2020 Dup-scan xtr veins unilateral/limited study [facility] Work Phone: Plan of Treatment Date Care Activity Detail Author Start: 11-03-2024 Adult BMI Screening Adult BMI Screen ing [facility] Start: 11-03-2024 Tobacco Screening Tobacco Screening [facility] Start: 08-06-2024 Adult BMI Screening Adult BMI Screen ing [facility] Start: 08-06-2024 Tobacco Screening Tobacco Screening [facility] Start: 07-02-2024 Depression Screening Depression Scre ening [facility] Start: 02-11-2024 End: 02-11-2024 Patient encounter procedure 02/11/2024 2:45 PM EDT Office Visit [facility] [address] [place] [address] [phone] Adams Glover APRN-MOLD YARD SUPERVISOR [address] [place] [phone] [facility] Start: 11-04-2023 End: 11-04-2023 Patient encounter procedure 11/04/2023 2:45 PM EST Office Visit [facility] [address] [place] [address] [phone] Adams Glover APRN-MOLD YARD SUPERVISOR [address] [place] [phone] [facility] Start: 05-01-2023 COVID-19 Vaccine ( season) COVID-19 Vaccine ( season) [facility] Start: 05-01-2020 Influenza vaccination Flu vaccine (# 1) Lever Phone: Start: 01-22-2020 DTaP,Tdap and Td Vaccines (7 - Td or Tdap) DTaP,Tdap and Td Vaccines (7 - Td or Tdap) [facility] Start: 01-22-2020 DTaP/Tdap/Td vaccine (7 - Td) DTaP/Tdap/Td vaccine (7 - Td) Lever Phone: Start: 2019 Screening for malign ant neoplasm of cervix [facility] Start: 2016 Adult BMI Follow Up Plan Adult BMI Follow Up Plan [facility] Start: 2014 Screening for Chlamy maxx trachomatis Chlamydia screen [facility] Work Phone: Start: 2013 HIV screening HIV screen [facility] Work Phone: Start: 10-22-2009 Varicella vaccine (1 of 2 - 2-dose childhood series) Varicella vaccine (1 of 2 - 2-dose childhood series) [facility] Work Phone: Start: 1998 Hepatitis C screening Hepatitis C sc reen [facility] Work Phone: Immunizations Immunization Date Immunization Notes Care Provider Fa [facility] 05-28-2017 influenza, seasonal, injectable Manohar Warner MD Work Phone: [facility] 08-21-2010 human papilloma viru s vaccine, quadrivalent Manohar Warner MD Work Phone: [facility] 07-08-2010 influenza virus vaccine, whole virus Manohar Warner MD Work Phone: [facility] 03-27-2010 human papilloma viru s vaccine, quadrivalent Manohar Warner MD Work Phone: [facility] 03-27-2010 meningococcal polysaccharide (groups A, C, Y and W-135) diphtheria toxoid conjugate vaccine (MCV4P) Manohar Warner MD Work Phone: [facility] 01-21-2010 human papilloma viru s vaccine, quadrivalent Manohar Warner MD Work Phone: [facility] 01-21-2010 tetanus toxoid, redu mayra diphtheria toxoid, and acellular pertussis vaccine, adsorbed Manohar Warner MD Work Phone: [facility] 09-24-2009 novel [id number], live virus for nasal administration Manohar Warner MD Work Phone: [facility] 05-04-2003 diphtheria, tetanus toxoids and acellular pertussis vaccine Manohar Warner MD Work Phone: [facility] 05-04-2003 measles, mumps and rubella virus vaccine Manohar Warner MD Work Phone: [facility] 09-01-2000 pneumococcal conjuga te vaccine, 7 valent Manohar Warner MD Work Phone: [facility] 09-04-1999 diphtheria, tetanus toxoids and acellular pertussis vaccine, unspecified formulation Manohar Warner MD Work Phone: [facility] 09-04-1999 haemophilus influenz ae type b vaccine, conjugate unspecified formulation Manohar Warner MD Work Phone: [facility] 09-04-1999 hepatitis B vaccine, pediatric or pediatric/adolescent dosage Manohar Warner MD Work Phone: [facility] 09-04-1999 poliovirus vaccine, unspecified formulation Manohar Warner MD Work Phone: [facility] 06-12-1999 measles, mumps and rubella virus vaccine Manohar Warner MD Work Phone: [facility] 1998 diphtheria, tetanus toxoids and acellular pertussis vaccine, unspecified formulation Manohar Warner MD Work Phone: [facility] 1998 haemophilus influenz ae type b vaccine, conjugate unspecified formulation Manohar Warner MD Work Phone: [facility] 1998 hepatitis B vaccine, pediatric or pediatric/adolescent dosage Manohar Warner MD Work Phone: [facility] 1998 poliovirus vaccine, unspecified formulation Manohar Warner MD Work Phone: [facility] 1998 diphtheria, tetanus toxoids and acellular pertussis vaccine, unspecified formulation Manohar Warner MD Work Phone: [facility] 1998 haemophilus influenz ae type b vaccine, conjugate unspecified formulation Manohar Warner MD Work Phone: [facility] 1998 poliovirus vaccine, unspecified formulation Manohar Warner MD Work Phone: [facility] 1998 diphtheria, tetanus toxoids and acellular pertussis vaccine, unspecified formulation Manohar Warner MD Work Phone: [facility] 1998 haemophilus influenz ae type b vaccine, conjugate unspecified formulation Manohar Warner MD Work Phone: [facility] 1998 hepatitis B vaccine, pediatric or pediatric/adolescent dosage Manohar Warner MD Work Phone: [facility] 1998 poliovirus vaccine, unspecified formulation Manohar Warner MD Work Phone: [facility] 1998 hepatitis B vaccine, pediatric or pediatric/adolescent dosage Manohar Warner MD Work Phone: [facility] NEGATED: Highlighted row has not occurred!09-12-2020 influenza, injectable, quadrivalent, preservative free Manohar Warner MD Work Phone: [facility] Comment on above: Deferred: Patient Re fused NEGATED: Highlighted row has not occurred!09-02-2018 influenza, injectable, quadrivalent, preservative free Manohar Warner MD Work Phone: [facility] Comment on above: Deferred: Patient Re fused Payers Date Payer Category Payer Unknown [employer] [id number] 2022-Present [phone] [address] [place] [address] [id number] 2020 Unknown [id number] 1998 Unknown [id number] 1998 Unknown [id number] 1998 Unknown [id number] [id number] 1998 Unknown [id number] [id number] 1998 Unknown [id number] [id number] 1998 Unknown [id number] [id number] 1998 Unknown [id number] [id number] 1998 Unknown [id number] [id number] 1998 Unknown [id number] [id number] 1998 Unknown [id number] [id number] 1998 Unknown [id number] [id number] 1998 Unknown [id number] [id number] 1998 Unknown [id number] [id number] 1998 Unknown [id number] [id number] 1998 Unknown [id number] [id number] 1998 Unknown [id number] [id number] 1998 Unknown [id number] [id number] 1998 Unknown [id number] [id number] 1959 Unknown [id number] 1959 Unknown [id number] Social History Date Type Detail Facility Tobacco smoking stat us NHIS Unknown if ever smoked Lever Phone: Sex Assigned At Not on file [employer] Work Phone: Exposure to SARS-CoV -2 (event) Not sure Lever Phone: Start: 07-02-2023 Tobacco smoking status NHIS Never smoked tobacco [facility] Start: 07-02-2023 Tobacco use and exposure Smokeless tobacco non-user [facility] Start: 08-06-2023 End: 11-04-2023 Alcohol intake Current drinker of alcohol (finding) [facility] Start: 05-06-2021 End: 07-02-2023 History of Social function [facility] Start: 05-06-2021 End: 07-02-2023 Social connection and isolation panel [facility] Do you belong to any clubs or organizations such as hoahaoism groups, unions, fraternal or athletic groups, or school groups? Yes [facility] Are you now , , , , never or living with a partner? Never [facility] How often to you hav e a drink containing alcohol? 2-4 times a month [facility] How many standard dr inks containing alcohol do you have on a typical day? 1 or 2 [facility] How often do you hav e 6 or more drinks on 1 occasion? Monthly [facility] How hard is it for y ou to pay for the very basics like food, housing, medical care, and heating Not very hard [facility] Adolescent depressio n screening assessment 0 [facility] Do you feel stress - tense, restless, nervous, or anxious, or unable to sleep at night because your mind is troubled all the time - these days [OSQ] To some extent [facility] Start: 05-06-2021 Education 16 [facility] Start: 05-08-2021 Alcohol Comment occassional [facility] Start: 2000 Sex Assigned At Female [facility] Start: 11-25-2021 Gender identity Identifies as female gender (finding) [facility] Start: 11-25-2021 Sexual orientation Heterosexual (finding) [facility] Clinical Notes 09-15-2023 to 12-02-2023 Telephone Encounter - Millicent Randall CNA - 12/02/2023 11:49 AM EDTTelephone Encounter - PAL Rivera - 12/02/2023 11:[address] - 11/04/2023 2:45 PM EST Note Date & Type Note Facility 12-02-2023 Miscellaneous Notes Formattin g of this note might be different from the original. Devon called to inform provider she started the Wegovy injections and is experiencing some nausea with it. She would like nausea medication sent into [facility] in [place]. Medication sent Patient notified documented in this encounter [facility] 12-02-2023 Telephone encount er Note Devon called to inform provider she started the Wegovy injections and is experiencing some nausea with it. She would like nausea medication sent into [facility] in [place]. [facility] 12-02-2023 Telephone encount er Note Medication sent [facility] 12-02-2023 Telephone encount er Note Patient notified [facility] 11-04-2023 History of Presen t illness Narrative Subjective Patient ID: Devon Camargo is a 23 y.o. female. KIANNA Osorio presents to the office for hypertension follow up. Currently on chlorthalidone 25 mg and feels this is working well for her. BP is 122/70. She would also like to discuss weight management. She reports she continues to work on diet and exercise and still having minimal results. She is exercising 4 out of 7 days a week. She is performing home exercises and walking. She has been choosing healthier eating choices and is changing her eating habits, and not allowing herself to eat after 8 pm. She would like to inquire about Wegovy. Denies headache, chest pain, shortness of breath, abdominal pain, syncope, nausea, vomiting, muscle cramps. The following portions of the patient's history were reviewed and updated as appropriate: allergies, current medications, past family history, past medical history, past social history, past surgical history, problem list, and medication reconciliation was completed including current medication and post discharge medication. Review of Systems Constitutional: Negative. HENT: Negative. Respiratory: Negative. Cardiovascular: Negative. Gastrointestinal: Negative. Musculoskeletal: Negative. Neurological: Negative. Objective Physical Exam Vitals and nursing note reviewed. Constitutional: Appearance: Normal appearance. HENT: Head: Normocephalic and atraumatic. Cardiovascular: Rate and Rhythm: Normal rate and regular rhythm. Pulses: Normal pulses. Heart sounds: Normal heart sounds. No murmur heard. Pulmonary: Effort: Pulmonary effort is normal. Breath sounds: Normal breath sounds. Abdominal: General: Bowel sounds are normal. Palpations: Abdomen is soft. Musculoskeletal: Right lower leg: No edema. Left lower leg: No edema. Skin: General: Skin is warm and dry. Capillary Refill: Capillary refill takes less than 2 seconds. Findings: No erythema or rash. Neurological: General: No focal deficit present. Mental Status: She is alert and oriented to person, place, and time. Psychiatric: Mood and Affect: Mood normal. Behavior: Behavior normal. Assessment/Plan Labs from 09/14/2023 indicated hypokalemia. She was sent in short course of supplement which she completed. We will repeat labs today. Continue chlorithalidone. Continue to monitor BP and HR. Continue to work on diet and exercise, since we have been working on weight for the past 6 months, Devon would like to see if we can qualify for Wegovy. Medication sent. FU 3 months. Devon was seen today for follow-up. Diagnoses and all orders for this visit: Primary hypertension - Basic Metabolic Panel; Future Hypokalemia - Basic Metabolic Panel; Future Encounter for weight management - semaglutide, weight loss, (WEGOVY) 0.25 mg/0.5 mL pen injector; Inject 0.5 mL (0.25 mg total) under the skin every 7 days. Obesity (BMI 30-39.9) - semaglutide, weight loss, (WEGOVY) 0.25 mg/0.5 mL pen injector; Inject 0.5 mL (0.25 mg total) under the skin every 7 days. PAL Rivera 11/07/232204 documented in this encounter [facility] 09-17-2023 Miscellaneous Notes Formattin g of this note might be different from the original. Devon called with complaints of diarrhea X2 days and would a prescription sent to pharmacy to help relieve it. Rx sent. Patient notified. documented in this encounter [facility] 09-17-2023 Telephone encount er Note Devon called with complaints of diarrhea X2 days and would a prescription sent to pharmacy to help relieve it. [facility] 09-17-2023 Telephone encount er Note [facility] Tele[facility] encount er Note Patient notified. [facility] [employer] 09-15-2023 Miscellaneous Notes Formattin g of this note might be different from the original. ----- Message from PAL Rivera sent at 09/15/2023 9:23 AM EST ----- Please let her know cholesterol is elevated, she should work on diet and exercise. Potassium is low, I sent in supplement for 2 weeks. We should recheck at next appointment. Other labs are normal. Tried to call patient but no answer so I left a voicemail. Patient called into the office and I let her know about results documented in this encounter [facility] [employer] 09-15-2023 Telephone encount er Note ----- Message from PAL Rivera sent at 09/15/2023 9:23 AM EST ----- Please let her know cholesterol is elevated, she should work on diet and exercise. Potassium is low, I sent in supplement for 2 weeks. We should recheck at next appointment. Other labs are normal. [facility]23 Telephone encount er Note Tried to call patient but no answer so I left a voicemail. [facility] [facility] 09-15-2023 Telephone encount er Note Patient called into the office and I let her know about results [facility] Evaluation note Diagnosis Primary hypertension- Primary Unspecified essential hypertension Hypokalemia Hypopotassemia Encounter for weight management Obesity (BMI 30-39.9) documented in this encounter [facility] [employer] [facility]* Diagnosis Mixed hyperlipidemia- Primary Encounter for weight management Obesity (BMI 30-39.9) Primary hypertension Unspecified essential hypertension documented in this encounter [facility] SystemInstructionsNot on filedocumented in this encounter [facility] on filedocumented in this encounter [facility] SystemInstructionsNot on filedocumented in this encounter [facility]ructionsNot on filedocumented in this encounter [facility]* Attachments The following attachments cannot be sent through Care Everywhere. * Low Cholesterol, Saturated Fat, and Trans Fat Diet (Lithuanian) * High Potassium Diet (Lithuanian) documented in this encounterProMediMagazino SystemInstructionsNot on file documented in this encounterProVastrm SystemInstructionsNot on file documented in this encounter[facility]ast[facility] System Summary Purpose Family History No Family History Records FoundNo Family History Records FoundNo Family History Records FoundNo Family History Records FoundNo Family History Records FoundNo Family History Records Found Advance Directives No Advanced Directives Records FoundNo Advanced Directives Records FoundNo Advanced Directives Records FoundNo Advanced Directives Records FoundNo Advanced Directives Records FoundNo Advanced Directives Records Found Reason for Referral Status Reason Specialty Diagnoses / Procedures Referred By Contact Referred To Contact Pending Review Radiology Diagnoses Pain of right lower leg Procedures VL DUP LOWER EXTREMITY VENOUS RIGHT Harshal Roldan APRN - NP [address] [place] [address] Specialty Diagnoses / Procedures Referred By Contac t Referred To Contact Diagnoses Encounter for weight management Obesity (BMI 30-39.9) Adams Glover APRN-ANTHONY [address] [place] [phone] Referral ID Status Reason Start Date Expiration Date V isits Requested Visits Authorized [id number] Pending Review 1 1 Assessments Diagnosis Pain of right lower leg Pain in limb Additional Source Comments INFORMATION SOURCE (unrecogn ized section and content) DATE CREATED AUTHOR 11/09/2020 [facility] DATE CREATED AUTHOR AUTHOR'S ORGANIZ ATION 11/14/2022 [facility] DATE CREATED AUTHOR AUTHOR'S ORGANIZ ATION 09/23/2023 [facility] EPIC DATE CREATED AUTHOR AUTHOR'S ORGANIZ ATION 01/29/2024 [facility] DATE CREATED AUTHOR AUTHOR'S ORGANIZ ATION 04/22/2024 [facility] DATE CREATED AUTHOR AUTHOR'S ORGANIZ ATION 04/22/2024 [facility] Reason for Visit (unrecogniz ed section and content) Status Reason Specialty Diagnoses / Procedures Referred By Contact Referred To Contact Pending Review Radiology Diagnoses Pain of right lower leg Procedures VL DUP LOWER EXTREMITY VENOUS RIGHT Harshal Roldan APRN - PIN INSERTER REGULATOR [address] [place] [address] Reason Onset Date Comments Diarrhea 09/17/2023 Reason Comments Follow-up Reason Onset Date Comments Medication Problem 12/02/2023 Care Teams (unrecognized sec tion and content) Bell Clerk Relationship Specialty Start Date End Date Adams Glover APRN-CNP PCP - General Nurse Practitioner 07/07/23 Bell Clerk Relationship Specialty Start Date End Date Adams Glover APRN-CNP PCP - General Nurse Practitioner 07/07/23 Bell Clerk Relationship Specialty Start Date End Date Adams Glover APRN-CNP PCP - General Nurse Practitioner 07/07/23 Bell Clerk Relationship Specialty Start Date End Date Adams Glover APRN-CNP PCP - General Nurse Practitioner 07/07/23 Bell Clerk Relationship Specialty Start Date End Date Adams Glover APRN-CNP PCP - General Nurse Practitioner 07/07/23 Bell Clerk Relationship Specialty Start Date End Date Adams Glover APRN-CNP PCP - General Nurse Practitioner 07/07/23 Bell Clerk Relationship Specialty Start Date End Date Adams Glover APRN-CNP PCP - General Nurse Practitioner 07/07/23 FOR RECORDS PERTAINING TO PATIENTS WHO ARE OR HAVE BEEN ENROLLED IN A CHEMICAL DEPENDENCY/SUBSTANCEABUSE PROGRAM, SOME INFORMATION MAY BE OMITTED. This clinical summary was aggregated from multiple sources. Caution should be exercised in using it in the provision of clinical care. This summary normalizes information from multiple sources, and as a consequence, information in this document may materially change the coding, format and clinical context of patient data. In addition, data may be omitted in some cases. CLINICAL DECISIONS SHOULD BE BASED ON THE PRIMARY CLINICAL RECORDS. [employer] [facility]. provides no warranty or guarantee of the accuracy or completeness of information in this document.
[2024-05-25 09:11] LABS: HPV Aptima Negative (Negative); Pap IG (Image Guided) Note (.)
== END 2024-05-18 19:15 | disposition home or self-care (01) ==
LOC: LAB 19:14
PROVIDERS: Visit Provider Obstetrics & Gynecology
DX: R87.612 Low grade squamous intraepithelial lesion on cytologic smear of cervix (LGSIL) (principal)
CPT/HCPCS: 88175

== ENCOUNTER 2025-05-22 21:05 | Outpatient (REF) | payer OTHER, SELFPAY ==
--- OUTSIDE RECORDS SUMMARY | 2025-05-22 15:00 | XMS_ITS | Encounter Summary ---
Author Organization [facility] Address [address] [place] [address] Care Team Providers Care Car Dumper Operator Name Role Phone Unavailable Primary Care Provider Unavailabl e Reason for Visit * Reason Comments Gynecologic Exam Encounter Details Date Type Department Care Team (Late Contact Info) Description 05/22/2025 3:00 PM EDT Office Visit SORAYA MICHAEL [facility] [place] [phone] Sherman Fuller, DO [address], [id number] Bleeding of cervix (Primary Dx); Well woman exam with routine gynecological exam; ASCUS of cervix with negative high risk HPV; LGSIL on Pap smear of cervix; Cervicitis and endocervicitis Social History Tobacco Use Types Packs/Day Years Used Date Smoking Tobacco: Never Smokeless Tobacco: Never Alcohol Use Standard Drinks/Week Comments Yes 0 (1 standard drink = 0.6 oz pur e alcohol) Socially Comments No Sex and Gender Information Value Date Recorded Sex Assigned at Not on file Legal Sex Female 8:21 PM EDT Gender Identity Not on file Sexual Orientation Not on file documented as of this encounter Plan of Treatment Upcoming Encounters Date Type Department Care Team (Late st Contact Info) Description 05/28/2026 3:00 PM EDT Procedure Visit SORAYA MICHAEL [address] [place] [phone] Sherman Fuller, DO [address], [place] [id number] Scheduled Orders Name Type Priority Associated Diagnoses Orde r Schedule Pap Smear Pathology and Cytology Routine Well woman exam with routine gynecological exam ASCUS of cervix with negative high risk HPV LGSIL on Pap smear of cervix Ordered: 05/22/2025 US Pelvis w/ TV Imaging Routine Well woman exam with routine gynecological exam Bleeding of cervix Expected: 05/22/2025, Expires: 11/19/2025 SURESWAB(R) ADVANCED VAGINITIS PLUS, TMA Pathology and Cytology Routine Cervicitis and endocervicitis Ordered: 05/22/2025 CHLAMYDIA TRACHOMATIS (GENITO/STI) Lab Routine Cervicitis and endocervicitis Ordered: 05/22/2025 Neisseria gonorrhea DNA probe, direct Lab Routine Cervicitis and endocervicitis Ordered: 05/22/2025 documented as of this encounter Visit Diagnoses Diagnosis Bleeding of cervix- Primary Other specified noninflammatory disorder of cervix Well woman exam with routine gynecological exam Routine gynecological examination ASCUS of cervix with negative high risk HPV LGSIL on Pap smear of cervix Cervicitis and endocervicitis documented in this encounter
--- OUTSIDE RECORDS SUMMARY | 2025-05-22 21:08 | XMS_ITS | Encounter Summary ---
Author Organization [facility] Address [id number] [address] [place] [address] Care Team Providers Care Ground Operations Crew Member Name Role Phone Moni See ADMINISTRATIVE SUPPORT TECHNICIAN-PACKAGER AND STRAPPER Primary Care Provider Reason for Visit * Reason Onset Date Comments Med Refill 05/05/2022 Encounter Details Date Type Department Care Team (Late st Contact Info) Description 05/05/2022 Refill [facility] [address] [place] [address] [place] [phone] Rashmi Henson APRN-CNP [address] [facility] [address] [facility] [place] [id number] Anxiety with depression Social History Tobacco Use Types Packs/Day Years Used Date Smoking Tobacco: Never Smokeless Tobacco: Never Alcohol Use Standard Drinks/Week Comments Yes 0 (1 standard drink = 0.6 oz pur e alcohol) occassional Social Connection and Isolat ion Panel [NHANES] Answer Date Recorded In a typical week, how many times do you talk on the phone with family, friends, or neighbors? Three times a week 05/06/2021 How often do you get togethe r with friends or relatives? More than three times a week 05/06/2021 How often do you attend chur ch or denominational services? More than 4 times per year 05/06/2021 Do you belong to any clubs o r organizations such as moravian groups, unions, fraternal or athletic groups, or school groups? Yes 05/06/2021 How often do you attend meet ings of the clubs or organizations you belong to? More than 4 times per year 05/06/2021 Are you , , di vorced, , never , or living with a partner? Never 05/06/2021 AUDIT-C Answer Date Recorded Q1: How often do you have a drink containing alc ohol? 2-4 times a month 05/06/2021 Q2: How many drinks containi ng alcohol do you have on a typical day when you are drinking? 1 or 2 05/06/2021 Q3: How often do you have si x or more drinks on one occasion? Monthly 05/06/2021 Overall Financial Resource Strain (CARDIA) Answe r Date Recorded How hard is it for you to pa y for the very basics like food, housing, medical care, and heating? Not hard at all 05/06/2021 PHQ-2 Answer Date Recorded Total Score 15 05/06/2021 [facility] Occupat ional Health - Occupational Stress Questionnaire Answer Date Recorded Do you feel stress - tense, restless, nervous, or anxious, or unable to sleep at night because your mind is troubled all the time - these days? To some extent 05/06/2021 Exercise Vital Sign Answer Date Recorde d On average, how many days pe r week do you engage in moderate to strenuous exercise (like a brisk walk)? 3 days 05/06/2021 On average, how many minutes do you engage in exercise at this level? 30 min 05/06/2021 PRAPARE - Transportation Answer Date Re corded In the past 12 months, has l ack of transportation kept you from medical appointments or from getting medications? No 01/2021 In the past 12 months, has l ack of transportation kept you from meetings, work, or from getting things needed for daily living? No 05/06/2021 Childcare Answer Date Recorded Do problems getting child ca re make it difficult for you to work or study? No 05/06/2021 Employment Answer Date Recorded Do you need help finding a l ocal career center and/or a training program? No 05/06/2021 Purpose - Life Answer Date Recorded I have a purpose and direction in my life. Somew hat Agree 05/06/2021 Education Answer Date Recorded What is the highest level of school you have completed or the highest degree you have received? Associate degree: academic program 05/06/2021 Comments No Sex and Gender Information Value Date Recorded Sex Assigned at Female 11/25/2021 11:20 PM EDT Legal Sex Female 12:11 PM EDT Gender Identity Female 11/25/2021 11:20 PM EDT Sexual Orientation Straight 11/25/2021 11 :20 PM EDT COVID-19 Exposure Response Date Recorded In the last month, have you been in contact with someone who was confirmed or suspected to have Coronavirus / COVID-19? No / Unsure 04/25/2022 3:04 PM EDT documented as of this encounter Plan of Treatment Upcoming Encounters Date Type Department Care Team (Late st Contact Info) Description 07/19/2025 3:00 PM EST Telemedicine [facility] [address] [facility] [address] [place] [address] Domitila Selby MD [address] [facility] [address] [place] [address] 08/08/2025 2:30 PM EST Office Visit [facility] [address] [place] [address] Marta Hidalgo DO [address] [facility] [place] [address] documented as of this encounter Visit Diagnoses Diagnosis Anxiety with depression documented in this encounter Additional Health Concerns Assessment Noted Time PHQ-9 Depression Total Score: 15 021 10:57 AM EDT documented as of this encounter Care Teams Ground Operations Crew Member Relationship Specialty Start Date End Date Moni See APRN-ANTHONY [address] [place] [address], [place] [phone] PCP - General Nurse Practitioner 03/09/24 documented as of this encounter
--- OUTSIDE RECORDS SUMMARY | 2025-05-22 21:08 | XMS_ITS | Clinical Summary ---
Author Organization [facility] Address [id number] [address] [place] [address] Care Team Providers Care Horse Trainer Name Role Phone Moni See JONO-MEDICAL LOGISTICS SPECIALIST Primary Care Provider Allergies Active Allergy Reactions Criticality Noted Date Comments Amoxicillin-Pot Clavulanate Hives,Itching,Rash Low 09/10/2022 Penicillins Hives 01/06/2017 Sulfa (Sulfonamide Antibiotics) Hives 05/2017 Medications * This document contains information received from the source organization and may not represent a complete record from that organization. TRI-SPRINTEC, 28, 0.18/0.215/0.25 mg-35 mcg (28) per tablet 020 Active valACYclovir (VALTREX) 1000 mg tablet 020 Active hydrOXYzine (VISTARIL) 25 mg capsuleIndication s:Anxiety with depression Take 1 capsule (25 mg total) by mouth 3 (three) times a day as needed for anxiety. 270 capsule 1 024 Active meclizine (ANTIVERT) 12.5 mg tablet Take 1 tablet (12.5 mg total) by mouth 3 (three) times a day as needed for dizziness. 30 tablet 1 025 Active magnesium oxide (MAGOX) 400 mg tablet Take 1 tablet (400 mg total) by mouth before bedtime. 30 tablet 2 025 Active lisdexamfetamine (VYVANSE) 50 mg capsuleIndication s:Attention deficit hyperactivity disorder (ADHD), combined type Take 1 capsule (50 mg total) by mouth every morning. Max Daily Amount: 50 mg 30 capsule 025 Active Additional Information Patient not taking.Reported on 04/11/2025 lisdexamfetamine (VYVANSE) 50 mg capsuleIndication s:Attention deficit hyperactivity disorder (ADHD), combined type Take 1 capsule (50 mg total) by mouth every morning. Max Daily Amount: 50 mg 30 capsule 025 Active lisdexamfetamine (VYVANSE) 50 mg capsuleIndication s:Attention deficit hyperactivity disorder (ADHD), combined type Take 1 capsule (50 mg total) by mouth every morning. Max Daily Amount: 50 mg 30 capsule 025 Active lisinopriL (PRINIVIL,ZESTRIL ) 10 mg tabletIndications :Primary hypertension TAKE 1 TABLET(10 MG) BY MOUTH IN THE MORNING 90 tablet 1 025 Active ondansetron ODT (ZOFRAN ODT) 4 mg disintegrating tablet Dissolve 1 tablet (4 mg total) on tongue every 8 (eight) hours as needed for nausea or vomiting. 20 tablet 025 Active desvenlafaxine (PRISTIQ) 100 mg 24 hr tabletIndications :Moderate episode of recurrent major depressive disorder (CMS-HCC) Take 1 tablet (100 mg total) by mouth in the morning. 90 tablet 3 025 Active desvenlafaxine (PRISTIQ) 100 mg 24 hr tabletIndications :Moderate episode of recurrent major depressive disorder (CMS-HCC) take 1 tablet by mouth every morning 90 tablet 3 024 2024 Discontinued Active Problems Problem Noted Date Diagnosed Date Chronic nasal congestion 04/12/2025 Major depressive disorder, recurrent episode, mo derate 08/22/2024 Primary hypertension 08/06/2023 Attention deficit hyperactivity disorder (ADHD) 09/02/2019 Generalized anxiety disorder 03/10/2019 Encounters * This document contains information received from the source organization and may not represent a complete record from that organization. Date Type Department Care Team Description 05/04/2025 Travel 04/14/2025 Orders Only [facility] [address] [place] [address] [place] [phone] See, PAL [place] 04/12/2025 Telephone [facility] [address] [facility] [place] [address] Nia Wilkinson CMA 04/11/2025 2:45 PM EDT Office Visit [facility] [address] [facility] [place] [place] [phone] Domitila Selby MD ASMITA (obstructive sleep apnea) (Primary Dx); Hypersomnia; Rhinitis medicamentosa 04/11/2025 Travel 04/07/2025 Telephone [facility] [address] [facility] [address] [place] [address] Domitila Selby MD 03/23/2025 Refill [facility] [address] [place] [address] Moni See APRN-CNP Primary hypertension 03/22/2025 8:30 AM EDT Clinical Support [facility] [address] [place] [phone] Domitila Selby MD Excessive daytime sleepiness 03/21/2025 11:00 PM EDT Clinical Support [facility] Sleep [address] [phone] Domitila Selby MD Excessive daytime sleepiness 03/21/2025 Travel 03/21/2025 Orders Only [facility] [address] [place] [address] [place] [address] Moni See APRN-CNP 03/07/2025 Travel from Last 3 Months Immunizations Immunization Administration Dates Next Due DTaP 05/04/2003 DTaP, Unspecified 09/04/1999, 9,1998,05/11 H1N1 Nasal 09/24/2009 HPV Quadrivalent 08/21/2010,03/27/2010, 0 Hep B, Adolescent or Pediatric 0,1998,1998,03/11 HiB 09/04/1999, 9,1998,05/11 Influenza Whole 07/08/2010 Influenza, Im Trivalent Preservative 05/28/2017 Influenza, Injectable, quadr ivalent (PF) 09/12/2020(Deferred: Patient Refused),09/02/2018(Deferred: Patient Refused) MMR 05/04/2003,06/12/1999 Meningococcal MCV4P 03/27/2010 Pneumococcal Conjugate 09/01/2000 Polio, Unspecified 09/04/1999, 9,1998,05/11 Tdap 03/21/2024,01/21/2010 Family History Medical History Relation Name Comments Drug abuse Father Junior Alcohol abuse Maternal Grandmother Florinda Alcohol abuse Maternal Uncle Julian Diabetes Mother Osiris Hypertension Mother Osiris Colon cancer Paternal Grandmother Anay Hypertension Sister 1 Depression Sister 2 Erika Hypertension Sister 2 Erika Miscarriages / Stillbirths Sister 2 Erika Relation Name Status Comments Father Junior Maternal Grandmother Florinda Maternal Uncle Julian Mother Osiris Alive Paternal Grandmother Anay Sister 1 Alive Sister 2 Erika Social History Tobacco Use Types Packs/Day Years Used Date Smoking Tobacco: Never Smokeless Tobacco: Never Tobacco Cessation:Counseling Given: Not Answered Alcohol Use Standard Drinks/Week Comments Yes 0 (1 standard drink = 0.6 oz pur e alcohol) Socially Social Connection and Isolat ion Panel [NHANES] Answer Date Recorded In a typical week, how many times do you talk on the phone with family, friends, or neighbors? Three times a week 05/06/2021 How often do you get togethe r with friends or relatives? More than three times a week 05/06/2021 How often do you attend chur or adventist services? More than 4 times per year 05/06/2021 Do you belong to any clubs o r organizations such as faith groups, unions, fraternal or athletic groups, or [...] food, housing, medical care, and heating? Not very hard 06/27/2024 PHQ-2 Answer Date Recorded Total Score 10 11/21/2024 [facility] of Occupat ional Health - Occupational Stress [...] medical appointments or from getting medications? No 06/01 In the past 12 months, has l ack of transportation kept you from meetings, work, or from getting things needed for daily living? No 06/27/2024 Housing Instability Answer Date Recorde d Are you worried or concerned that in the next two months you may not have stable housing that you own, rent or stay in as a part of a household? No 06/27/2024 Childcare Answer Date Recorded Do problems getting child ca re make it difficult for you to work or study? No 05/06/2021 Employment Answer Date Recorded Do you need help finding a [place] [employer] career center and/or a training program? No 05/06/2021 Hunger Screening Answer Date Recorded Within the past 12 months we worried whether our food would run out before we got money to buy more. Never True 01/25/2025 Within the past 12 months th e food we bought just didn't last and we didn't have money to get more. Never True 01/25/2025 Purpose - Life Answer Date Recorded I [...] Orientation Straight 11/25/2021 11 :20 PM EDT Last Filed Vital Signs Vital Sign Reading Time Taken Comments Blood Pressure 122/79 04/11/2025 2:47 PM EDT Pulse 87 04/11/2025 2:47 PM EDT Temperature 36.5 C (97.7 F) 01/25/2025 3:42 PM EDT Respiratory Rate 18 03/23/2024 1:46 PM EDT Oxygen Saturation 98% 04/11/2025 2:47 PM EDT Inhaled Oxygen Concentration - - Weight 69.4 kg (153 lb) 04/11/2025 2:47 PM EDT Height 165.1 cm (5' 5 ) 04/11/2025 2:47 PM EDT Body Mass Index 25.46 04/11/2025 2:47 PM EDT Plan of Treatment Upcoming Encounters Date Type Department Care Team (Late st Contact Info) Description 07/19/2025 3:00 PM EST Telemedicine [facility] [address] [facility] [address] [place] [address] Domitila Selby MD [address] [facility] [address] [place] [address] 08/08/2025 2:30 PM EST Office Visit [facility] [address] [place] [address] Marta Hidalgo DO [address] [facility] [place] [address] Health Maintenance Due Date Last Done Comments Adult BMI Follow Up Plan 2016 Pap Smear 2019 COVID-19 Vaccine (3 - 2024-2 6 season) 2025 10/12/2020, 09/14/2020 Depression Screening 11/21/2025 11/21/2024 Adult BMI Screening 04/11/2026 04/11/2025 Tobacco Screening 04/11/2026 04/11/2025 DTaP,Tdap and Td Vaccines (8 - Td or Tdap) 03/21/2034 03/21/2024, 01/21/2010, 05/04/2003, Additional history exists Influenza Vaccine Discontinued 05/28/2017, , 09/24/2009 Medical Devices Not on file Procedures Procedure Name Priority Date/Time Associated Diagnosis Comments MULTIPLE SLEEP LATENCY TEST Routine 03/22/2025 11:34 AM EDT Excessive daytime sleepiness DRUG SCREEN, URINE Routine 03/22/2025 10 :22 AM EDT Excessive daytime sleepiness POLYSOMNOGRAPHY 4 OR MORE PARAMETERS Routine 03/22/2025 12:00 AM EDT Excessive daytime sleepiness from Last 3 Months Results * Multiple sleep latency test (03/22/2025 11:34 AM EDT) 03/22/2025 11:3 4 AM EDT Narrative [facility] - 04/07/2025 3:37 PM EDT INTERPRETED us Domitila Selby MD SLEEP CENTER ORDERABLES Final Re sult [facility] * Drug Screen, Urine (03/22/2025 10:22 AM EDT) AMPHETAMINE/METHAMP Negative Negative 03/23 2:46 AM EDT [facility] Comment:AMPH/METH screening cut off = 1000 ng/mL COCAINE METABOLITE Negative Negative 2024 2:46 AM EDT [facility] Comment:Cocaine screening cu t off value = 300 ng/mL ECSTASY Negative Negative 03/23/2025 2:46 AM EDT [facility] Comment:Ecstasy screening cu t off value = 500 ng/mL METHADONE Negative Negative 03/23/2025 2:46 AM EDT [facility] Comment:Methadone screening cut off value = 300 ng/mL. OPIATES Negative Negative 03/23/2025 2:46 AM EDT [facility] Comment: Opiates screening cut off value = 300 ng/mL This test is used for the detection of codeine, hydrocodone (>1000 ng/mL), morphine and hydromorphone (>900 ng/mL) in urine. OXYCODONE Negative Negative 03/23/2025 2:46 AM EDT [facility] Comment: Oxycodone screening cut off value = 300 ng/mL This test is used for the detection of oxycodone and oxymorphone in urine. PHENCYCLIDINE Negative Negative 03/23/2025 2:46 AM EDT [facility] Comment:Phencyclidine screen ing cut off value = 25 ng/mL CANNABINOIDS Negative Negative 03/23/2025 2:46 AM EDT [facility] Comment:Cannabinoids/THC scr eening cut off value = 50 ng/mL Urine Barbiturates Negative Negative 2024 2:46 AM EDT [facility] Comment:Barbiturates screeni ng cut off value = 200 ng/mL BENZODIAZEPINES Negative Negative 2:46 AM EDT [facility] Comment:Benzodiazepines scre ening cut off value = 200 ng/mL Urine Collection / Unknown 03/22/2025 10:22 AM EDT 03/22/2025 1:44 PM EDT us Domitila Selby MD URINE ORDERABLES Final Result [facility] [address] [place] [address], * PSG Diagnostic (03/22/2025 12:00 AM EDT) 03/22/2025 12:0 0 AM EDT Narrative [facility] - 04/07/2025 3:39 PM EDT INTERPRETED us Domitila Selby MD SLEEP CENTER ORDERABLES Final Re sult [facility] from Last 3 Months Insurance [employer] Care Teams Horse Trainer Relationship Specialty Start Date End Date Moni See APRN-CNP [address] [place] [phone] PCP - General Nurse Practitioner 03/09/24
--- OUTSIDE RECORDS SUMMARY | 2025-05-22 21:08 | XMS_ITS | Encounter Summary ---
Author Organization [employer] Address [id number] [address] [place] [address] Care Team Providers Care Gynecology Teacher Name Role Phone Moni See JONO-RESEARCH EXECUTIVE Primary Care Provider Encounter Details Date Type Department Care Team (Late st Contact Info) Description 07/08/2023 [facility] [address] [phone] Cierra Topete CMA Social History Tobacco Use Types Packs/Day Years [...] often do you attend chur ch or hoahaoism services? More than 4 times per year 05/06/2021 Do you belong to any clubs o r organizations such as anabaptism groups, unions, fraternal or athletic groups, or [...] medical care, and heating? Not very hard 06/29/2023 PHQ-2 Answer Date Recorded Total Score 0 07/02/2023 [facility] of Occupat ional Health - Occupational Stress [...] medical appointments or from getting medications? No 06/02 In the past 12 months, has l ack of transportation kept you from meetings, work, or from getting things needed for daily living? No 06/29/2023 Housing Instability Answer Date Recorde d Are you worried or concerned that in the next two months you may not have stable housing that you own, rent or stay in as a part of a household? No 06/29/2023 Childcare Answer Date Recorded Do problems getting child ca re make it difficult for you to work or study? No 05/06/2021 Employment Answer Date Recorded Do you need help finding a l al career center and/or a training program? No 05/06/2021 Hunger Screening Answer Date Recorded Within the past 12 months we worried whether our food would run out before we got money to buy more. Never True 07/02/2023 Within the past 12 months th e food we bought just didn't last and we didn't have money to get more. Never True 07/02/2023 Purpose - Life Answer Date Recorded I [...] Orientation Straight 11/25/2021 11 :20 PM EDT documented as of this encounter Miscellaneous Notes * Telephone Encounter - Cierra Topete CMA - 07/08/2023 10:41 AM EST I had message to contact the pharmacy about Chlorthalidone. The spoke to the pharmacy and they wanted to let you know that the medication doesn't come in 15mg it does come in 25mg or if you wanted toprescribed something different. * Telephone Encounter - PAL Rivera - 07/08/2023 10:41 AM EST I sent in a new order. Thank you. PAL Rivera 07/08/23 1107 documented in this encounter Plan of Treatment Upcoming Encounters Date Type Department Care Team (Late st Contact Info) Description 07/19/2025 3:00 PM EST Telemedicine [facility] [address] [place] [phone] Domitila Selby MD [address] [facility] [address] [place] [address] 08/08/2025 2:30 PM EST Office Visit [facility] [address] [place] [address] Marta Hidalgo, [address], [address] [place] [address] documented as of this encounter Visit Diagnoses Not on filedocumented in this encounter Additional Health Concerns Assessment Noted Time PHQ-9 Depression Total Score: 0 07/02/20 23 3:28 PM EDT documented as of this encounter Care Teams Gynecology Teacher Relationship Specialty Start Date End Date Moni See APRN-ANTHONY [address] [place] [address], [place] [address] PCP - General Nurse Practitioner 03/09/24 documented as of this encounter
--- OUTSIDE RECORDS SUMMARY | 2025-05-22 21:09 | XMS_ITS | Encounter Summary ---
Author Organization [employer] Address [facility]-[id number] [address] [place] [address] Care Team Providers Care Coverer Name Role Phone Moni See JONO-SECURITY ARCHITECT Primary Care Provider Encounter Details Date Type Department Care Team (Late st Contact Info) Description 11/05/[address] [facility] Family Medicine [address] [place] [address] [place] [address] Cierra Topete CMA Social History Tobacco Use [...] often do you attend chur ch or druze services? More than 4 times per year 05/06/2021 Do you belong to any clubs o r organizations such as synagogue groups, unions, fraternal or athletic groups, or [...] Answer Date Recorded Total Score 0 07/02/2023 [facility] - Occupational Stress Questionnaire Answer Date Recorded [...] Recorded Do you need help finding a [employer] career center and/or a training program? No [...] Telephone Encounter - Cierra Topete CMA - 11/05/2023 11:11 AM EST ----- Message from PAL Rivera sent at 11/05/2023 6:33 AM EST ----- Please let her know potassium is low, I sent in supplement. We will need to recheck lab at next visit. * Telephone Encounter - Cierra Topete CMA - 11/05/2023 11:11 AM EST Called patient, no answer left message to call back documented in this encounter Plan of Treatment Upcoming Encounters Date Type Department Care Team (Late st Contact Info) Description 07/19/2025 3:00 PM EST Telemedicine [facility] [address] [place] [address] Domitila Selby MD [address] [facility] [address] [place] [address] 08/08/2025 2:30 PM EST Office Visit [facility] [address] [place] [address] Marta Hidalgo, DO [address] [facility], [address] [place] [address] documented as of this encounter Visit Diagnoses Not on filedocumented in this encounter Additional Health Concerns Assessment Noted Time PHQ-9 Depression Total Score: 0 07/02/20 23 3:28 PM EDT documented as of this encounter Care Teams Coverer Relationship Specialty Start Date End Date Moni See APRN-ANTHONY [address] [place] [phone] PCP - General Nurse Practitioner 03/09/24 documented as of this encounter
--- OUTSIDE RECORDS SUMMARY | 2025-05-22 21:09 | XMS_ITS | Encounter Summary ---
Author Organization [facility] Address [id number] [address] [place] [address] Care Team Providers Care Entry Level Name Role Phone Moni See JONO-SERVICE DESK ASSOCIATE Primary Care Provider Reason for Visit * Reason Onset Date Comments Med Refill 08/14/2020 Encounter Details Date Type Department Care Team (Late st Contact Info) Description 08/14/2020 Refill [facility] [address] [place] [phone] Tash Pulliam CMA Mild episode of recurrent major depressive disorder (CMS-HCC) Social History Tobacco Use Types Packs/Day Years Used Date Smoking Tobacco: Never Smokeless Tobacco: Never Alcohol Use Standard Drinks/Week Comments No 0 (1 standard drink = 0.6 oz pur e alcohol) PHQ-2 Answer Date Recorded PHQ-2 Score 8 12/15/2019 Childcare Answer Date Recorded Childcare Unknown 02/02/2019 Employment Answer Date Recorded Employment Unknown 02/02/2019 Comments No Sex and Gender Information Value [...] have Coronavirus / COVID-19? No / Unsure 07/30/2020 1:25 PM EST documented as of this encounter Miscellaneous Notes * Telephone Encounter - Kay Canseco CMA - 08/14/2020 1:52 PM EST Lvm, patient to call to schedule apt. documented in this encounter Plan of Treatment Upcoming Encounters Date Type Department Care Team (Late st Contact Info) Description 07/19/2025 3:00 PM EST Telemedicine [facility] [address] [facility] [address] [place] [phone] Domitila Selby MD [address] [facility] [address] [place] [address] 08/08/2025 2:30 PM EST Office Visit [facility] [address] [facility] [address] [place] [phone] Marta Hidalgo DO [address] [facility], [address] [place] [address] documented as of this encounter Visit Diagnoses Diagnosis Mild episode of recurrent major depressive disorder documented in this encounter Additional Health Concerns Assessment Noted Time PHQ-9 Depression Total Score: 8 12/15/19 20 2:39 PM EDT documented as of this encounter Care Teams Entry Level Relationship Specialty Start Date End Date Moni See APRN-ANTHONY [address] [place], [place] [address] [phone] PCP - General Nurse Practitioner 03/09/24 documented as of this encounter
--- OUTSIDE RECORDS SUMMARY | 2025-05-22 21:09 | XMS_ITS | Encounter Summary ---
Author Organization [employer] Address [id number]-[id number] [address] [place] [address] Care Team Providers Care Php Engineer Name Role Phone SeeMoni coyne JONO-STATE EPIDEMIOLOGIST Primary Care Provider Encounter Details Date Type Department Care Team (Late st Contact Info) Description 04/14/2024 Telephone [facility] Family [facility] [address] [place] [address] [place] [address] La Nena Ashley CMA Social History Tobacco Use Types Packs/Day [...] often do you attend chur ch or lutheran services? More than 4 times per year 05/06/2021 Do you belong to any clubs o r organizations such as holiness groups, unions, fraternal or athletic groups, or [...] Answer Date Recorded Total Score 0 07/02/2023 [facility] - Occupational Stress Questionnaire Answer Date [...] Recorded Do you need help finding a [facility] career center and/or a training program? No 05/06/2021 Hunger Screening Answer Date Recorded Within the past 12 months we worried whether our food would run out before we got money to buy more. Never True 03/23/2024 Within the past 12 months th e food we bought just didn't last and we didn't have money to get more. Never True 03/23/2024 Purpose - Life Answer Date Recorded I [...] encounter Miscellaneous Notes * Telephone Encounter - La Nena Ashley CMA - 04/14/2024 10:55 AM EDT Patient was called to be scheduled for lab draw. No answer lvm to call office Please schedule for a Thursday, non fasting labs documented in this encounter Plan of Treatment Upcoming Encounters Date Type Department Care Team (Late st Contact Info) Description 07/19/2025 3:00 PM EST Telemedicine [facility] [address] [facility] [address] [place] [address] Domitila Selby MD [address] [facility] [address] [place] [address] 08/08/2025 2:30 PM EST Office Visit [facility] [address] [facility] [address] [place] [phone] Marta Hidalgo DO [address] [facility] [place] [address] documented as of this encounter Visit Diagnoses Not on filedocumented in this encounter Additional Health Concerns Assessment Noted Time PHQ-9 Depression Total Score: 0 07/02/20 23 3:28 PM EDT documented as of this encounter Care Teams Php Engineer Relationship Specialty Start Date End Date Moni See APRN-ANTHONY [address] [place] [address], [place] [address] PCP - General Nurse Practitioner 03/09/24 documented as of this encounter
--- OUTSIDE RECORDS SUMMARY | 2025-05-22 21:09 | XMS_ITS | Encounter Summary ---
Author Organization [employer] Address [facility]-[id number] [address] [place] [address] Care Team Providers Care Doctor Of Podiatry Name Role Phone Moni See JONO-SIZE MAKER Primary Care Provider Encounter Details Date Type Department Care Team (Late st Contact Info) Description 01/13/2024 Telephone [facility] Family Medicine [address] [place] [address] [place] [address] Cierra Topete CMA Social History [...] often do you attend chur ch or christianity services? More than 4 times per year 05/06/2021 Do you belong to any clubs o r organizations such as shinto groups, unions, fraternal or athletic groups, or [...] Answer Date Recorded Total Score 0 07/02/2023 [facility] - Occupational Stress Questionnaire Answer [...] Recorded Do you need help finding a [facility] career center and/or a training [...] Telephone Encounter - Cierra Topete CMA - 01/13/2024 12:50 PM EDT Patient called into the office and was asking about getting labs done, she mentioned about getting her potassium checked and was not sure what other labs you wanted her to get done. * Telephone Encounter - PAL Rivera - 01/13/2024 12:50 PM EDT BMP ordered. I would like to wait until at least 6 months to check lipid profile. * Telephone Encounter - Cierra Topete CMA - 01/13/2024 12:50 PM EDT Called patient, no answer left a message to call back. documented in this encounter Plan of Treatment Upcoming Encounters Date Type Department Care Team (Late st Contact Info) Description 07/19/2025 3:00 PM EST Telemedicine [facility] [address] [place] [address] Domitila Selby MD [address] [facility] [address] [place] [address] 08/08/2025 2:30 PM EST Office Visit [facility] [address] [facility] [address] Marta Hidalgo, [address], [address] [place] [address] documented as of this encounter Visit Diagnoses Not on filedocumented in this encounter Additional Health Concerns Assessment Noted Time PHQ-9 Depression Total Score: 0 07/02/20 23 3:28 PM EDT documented as of this encounter Care Teams Doctor Of Podiatry Relationship Specialty Start Date End Date Moni See APRN-ANTHONY [address] [place] [address], [place] [phone] PCP - General Nurse Practitioner 03/09/24 documented as of this encounter
--- OUTSIDE RECORDS SUMMARY | 2025-05-22 21:09 | XMS_ITS | Encounter Summary ---
Author Organization [facility] Address [facility]-[id number] [address] [place] [address] Care Team Providers Care Supervisor Ticket Sales Name Role Phone Moni See LINSEED OIL ORDER FILLER-CATTLE EXAMINER Primary Care Provider Reason for Visit * Reason Comments Med Refill Encounter Details Date Type Department Care Team (Late st Contact Info) Description 04/22/2021 Refill [facility] [address] [place] [address] [place] [phone] Rashmi Henson APRN-CATTLE EXAMINER [address] [place], [place] [phone] Mild episode of recurrent major depressive disorder ([facility]-H[facility]) Social History Tobacco Use Types Packs/Day Years Used Date Smoking Tobacco: Never Smokeless Tobacco: Never Alcohol Use Standard Drinks/Week Comments No 0 (1 standard drink = 0.6 oz pur e alcohol) PHQ-2 Answer Date Recorded Total Score 13 10/19/2020 Childcare Answer Date Recorded Childcare Unknown 02/02/2019 Employment Answer Date Recorded Employment Unknown 02/02/2019 Purpose - Life Answer Date Recorded Purpose and direction in life Unknown Comments No Sex and Gender Information Value [...] have Coronavirus / COVID-19? No / Unsure 04/16/2021 8:02 AM EDT documented as of this encounter Miscellaneous Notes * Telephone Encounter - Charlotte Watts CMA - 04/22/2021 4:05 PM EDT Left vm for patient to schedule documented in this encounter Plan of Treatment Upcoming Encounters Date Type Department Care Team (Late st Contact Info) Description 07/19/2025 3:00 PM EST Telemedicine [facility] [address] [facility] [address] [place] [phone] Domitila Selby MD [address] [facility] [address] [place] [address] 08/08/2025 2:30 PM EST Office Visit [facility] [address] [facility] [address] [place] [phone] Marta Hidalgo DO [address] [facility], [address] [place] [address] documented as of this encounter Visit Diagnoses Diagnosis Mild episode of recurrent major depressive disorder documented in this encounter Additional Health Concerns Assessment Noted Time PHQ-9 Depression Total Score: 13 021 10:00 AM EST documented as of this encounter Care Teams Supervisor Ticket Sales Relationship Specialty Start Date End Date Moni See APRN-ANTHONY [address] [place] [address], [facility] [place] [phone] PCP - General Nurse Practitioner 03/09/24 documented as of this encounter
--- OUTSIDE RECORDS SUMMARY | 2025-05-22 21:09 | XMS_ITS | Encounter Summary ---
Author Organization [facility] Address [address] [place] [address] Care Team Providers Care Cover Cutter Machine Name Role Phone Unavailable Primary Care Provider Unavailabl e Encounter Details Date Type Department Care Team (Late st Contact Info) Description 03/30/2024 Orders Only [facility] [place] [employer] [facility] [place] [address] [place] [address] Martha Martel LPN [address] [facility] Maia GARCES [facility] Social History Tobacco Use Types Packs/Day Years Used Date Smoking Tobacco: Never Alcohol Use Standard Drinks/Week Comments Never 0 (1 standard drink = 0.6 oz pur e alcohol) Caffeine: 1-2 cups/day Comments Unknown Sex and Gender Information Value Date Recorded Sex Assigned at Not on file Legal Sex Female 8:21 PM EDT Gender Identity Not on file Sexual Orientation Not on file documented as of this encounter Plan of Treatment Upcoming Encounters Date Type Department Care Team (Late st Contact Info) Description 05/28/2026 3:00 PM EDT Procedure Visit [facility] [address] [place] [address] Sherman Fuller DO [address] [facility] [place] [address] documented as of this encounter Procedures Procedure Name Priority Date/Time Associated Diagnosis Comments PAP SMEAR Routine 09/22/2023 12:00 AM EST PAP SMEAR Routine 03/27/2023 12:00 AM EDT PAP SMEAR Routine 11/03/2022 12:00 AM EST PAP SMEAR Routine 05/26/2022 12:00 AM EDT documented in this encounter Results * Pap Smear (09/22/2023 12:00 AM EST) Swab Cervical swab / Unknown us Fuller Nurse Biancas [facility] Ob LAB CYTOLOGY ORDERABLES Final Result EXTERNAL LAB * Pap Smear (03/27/2023 12:00 AM EDT) Swab Cervical swab / Unknown us Jonny Valenzuelas [facility] Ob LAB CYTOLOGY ORDERABLES Final Result EXTERNAL LAB * Pap Smear (11/03/2022 12:00 AM EST) Swab Cervical swab / Unknown us Jonny Valenzuelas [facility] Ob LAB CYTOLOGY ORDERABLES Final Result EXTERNAL LAB * Pap Smear (05/26/2022 12:00 AM EDT) Swab Cervical swab / Unknown us Fuller Nurse Biancas [facility] Ob LAB CYTOLOGY ORDERABLES Final Result EXTERNAL LAB documented in this encounter Visit Diagnoses Not on filedocumented in this encounter
--- OUTSIDE RECORDS SUMMARY | 2025-05-22 21:09 | XMS_ITS | Encounter Summary ---
Author Organization [employer] Address [facility]-[id number] [address] [place] [address] Care Team Providers Care Glass Bender Name Role Phone SeeMoni coyne JONO-NETWORK SECURITY ENGINEER Primary Care Provider Encounter Details Date Type Department Care Team (Late st Contact Info) Description 02/26/2024 Telephone [facility] Family [facility] [address] [place] [address] [place] [address] Nicolasa Cuba CMA Social History Tobacco Use Types Packs/Day [...] often do you attend chur ch or baptist services? More than 4 times per year 05/06/2021 Do you belong to any clubs o r organizations such as presybeterian groups, unions, fraternal or athletic groups, or [...] Answer Date Recorded Total Score 0 07/02/2023 [facility] - Occupational Stress Questionnaire Answer Date [...] Recorded Do you need help finding a [facility] career center and/or a training [...] encounter Miscellaneous Notes * Telephone Encounter - Nicolasa Cuba CMA - 02/26/2024 11:38 AM EDT Patient called stating she has had cramping in her legs and having SOB and elevated heart rate off and on over the last few weeks. She said pains in legs feel like growing pains. She has googled someof her symptoms and seen this could be signs of blood clots. She would like to know if PCP feels this is something she should be seen for. Please advise? * Telephone Encounter - PAL Bautista - 02/26/2024 11:38 AM EDT See if pt can come in today * Telephone Encounter - Sujey Partida - 02/26/2024 11:38 AM EDT Attempted to contact patient, left voicemail to call office and schedule appointment documented in this encounter Plan of Treatment Upcoming Encounters Date Type Department Care Team (Late st Contact Info) Description 07/19/2025 3:00 PM EST Telemedicine [facility] [address] [place] [address] Domitila Selby MD [address] [facility] [address] [place] [address] 08/08/2025 2:30 PM EST Office Visit [facility] [address] [facility] [address] [place] [phone] Marta Hidalgo DO [address] [facility], [address] [place] [address] documented as of this encounter Visit Diagnoses Not on filedocumented in this encounter Additional Health Concerns Assessment Noted Time PHQ-9 Depression Total Score: 0 07/02/20 23 3:28 PM EDT documented as of this encounter Care Teams Glass Bender Relationship Specialty Start Date End Date Moni See APRN-ANTHONY [address] [place] [address], [facility] [place] [phone] PCP - General Nurse Practitioner 03/09/24 documented as of this encounter
--- OUTSIDE RECORDS SUMMARY | 2025-05-22 21:09 | XMS_ITS | Clinical Summary ---
Author Organization [facility] Healthcare Address [address] [place] [address] Care Team Providers Care Marine Radio Installer And Servicer Name Role Phone Unavailable Primary Care Provider Unavailabl e Allergies Active Allergy Reactions Criticality Noted Date Comments Sulfamethoxazole-Trimethoprim 2022 Penicillins 03/23/2023 Sulfa Antibiotics 03/23/2023 Medications Acyclovir 50 MG tablet 1 capsule 1 (one) time each day at the same time. Active desvenlafaxine succinate ER (Pristiq) 25 MG 24 hour tablet Pristiq Active hydrOXYzine HCl (Atarax) 25 MG tablet every 8 (eight) hours. Active lisdexamfetamine (Vyvanse) 40 MG capsule Take 40 mg by mouth in the morning. 4 Active norgestimate-ethin yl estradiol (Ortho-Cyclen) 0.25-35 MG-MCG tablet Take 1 tablet by mouth Daily Active Wegovy 0.25 MG/0.5ML solution auto-injector ADMINISTER 0.25 MG UNDER THE SKIN EVERY 7 DAYS 4 Active Tri-Sprintec 0.18/0.215/0.25 MG-35 MCG tabletIndications: Encounter for surveillance of contraceptive pills TAKE 1 TABLET BY MOUTH DAILY 28 tablet 3 5 Active albuterol HFA 90 mcg/act inhaler INHALE 1 TO 2 PUFFS BY MOUTH EVERY 4 TO 6 HOURS NEEDED FOR WHEEZING OR COUGH OR SHORTNESS OF BREATH 5 Active azithromycin (Zithromax) 250 MG tablet TAKE 2 TABLETS BY MOUTH TODAY THEN 1 EVERY DAY FOR 4 DAYS 5 Active desvenlafaxine (Pristiq) 100 MG 24 hr tablet Take 100 mg by mouth in the morning. 5 Active lisdexamfetamine (Vyvanse) 50 MG capsule 5 Active lisinopril 10 MG tablet Take 10 mg by mouth 5 Active doxycycline (Vibramycin) 100 MG capsuleIndications :Cervicitis and endocervicitis Take 1 capsule (100 mg) by mouth in the morning and 1 capsule (100 mg) before bedtime. Do all this for 14 days. Take with at least 8 ounces (large glass) of water, do not lie down for 30 minutes after. 14 capsule 5 025 Active Active Problems Problem Noted Date Diagnosed Date Yeast infection 09/06/2024 Vaginal itching 09/06/2024 Encounters Date Type Department Care Team Description 05/22/2025 3:00 PM EDT Office Visit [facility] [address] [place] [address] Sherman Fuller DO Bleeding of cervix (Primary Dx); Well woman exam with routine gynecological exam; ASCUS of cervix with negative high risk HPV; LGSIL on Pap smear of cervix; Cervicitis and endocervicitis 05/22/2025 Bamboo flowsheet [facility] [address] [place] [address] Sherman Fuller DO from Last 3 Months Family History Medical History Relation Name Comments Hypertension Father Junior Heart disease Maternal Grandfather Diabetes Maternal Grandmother Florinda Diabetes Mother Osiris Hypertension Mother Osiris stomach problem Paternal Grandfather Cancer Paternal Grandmother Anay Relation Name Status Comments Father Junior Maternal Grandfather Maternal Grandmother Florinda Mother Osiris Alive Paternal Grandfather Paternal Grandmother Anay Social History Tobacco Use Types Packs/Day Years [...] on file Sexual Orientation Not on file Last Filed Vital Signs Vital Sign Reading Time Taken Comments Blood Pressure 120/76 05/18/2024 3:57 PM EDT Pulse - - Temperature - - Respiratory Rate - - Oxygen Saturation - - Inhaled Oxygen Concentration - - Weight 68 kg (150 lb) 05/18/2024 3:57 PM EDT Height 162.6 cm (5' 4 ) 05/18/2024 3:57 PM EDT Body Mass Index 25.75 05/18/2024 3:57 PM EDT Plan of Treatment Upcoming Encounters Date Type Department Care Team (Late st Contact Info) Description 05/28/2026 3:00 PM EDT Procedure Visit [facility] [address] [facility] [place] [place] [address] Sherman Fuller DO [address] [address] [place] [address] Health Maintenance Due Date Last Done Comments Influenza Vaccine (#1) 2025 05/28/2017, 2009 Insurance [employer]
--- OUTSIDE RECORDS SUMMARY | 2025-05-22 21:09 | XMS_ITS | Encounter Summary ---
Author Organization [facility] Address [id number] [address] [place] [address] Care Team Providers Care Washer Hand Name Role Phone Moni See TEST CAR DRIVER-CROP INSURANCE CLAIMS ADJUSTER Primary Care Provider Encounter Details Date Type Department Care Team (Late Contact Info) Description 09/01/2018 Telephone [facility] [address] [place] [address] [place] [phone] Rashmi Henson APRN-CROP INSURANCE CLAIMS ADJUSTER [address] [place] [address] Social History Tobacco Use Types Packs/Day Years Used Date Smoking Tobacco: Never Smokeless Tobacco: Never Alcohol Use Standard Drinks/Week Comments No 0 (1 standard drink = 0.6 oz pur e alcohol) PHQ-2 Answer Date Recorded PHQ-2 Score 19 09/02/2018 Comments Unknown Sex and Gender Information Value Date Recorded Sex Assigned at Female 11/25/2021 11:20 PM EDT Legal Sex Female 12:11 PM EDT Gender Identity Female 11/25/2021 11:20 PM EDT Sexual Orientation Straight 11/25/2021 11 :20 PM EDT documented as of this encounter Plan of Treatment Upcoming Encounters Date Type Department Care Team (Late Contact Info) Description 07/19/2025 3:00 PM EST Telemedicine [facility] [address] [facility] [address] [place] [address] Domitila Selby MD [address] [facility] [address] [place] [address] 08/08/2025 2:30 PM EST Office Visit [facility] [address] [place] [phone] Marta Hidalgo, DO [address] [facility] [place] [address] documented as of this encounter Visit Diagnoses Not on filedocumented in this encounter Additional Health Concerns Assessment Noted Time PHQ-9 Depression Total Score: 0 06/24/20 17 9:00 AM EDT documented as of this encounter Care Teams Washer Hand Relationship Specialty Start Date End Date Moni See APRN-ANTHONY [address] [place] [address], [place] [phone] PCP - General Nurse Practitioner 03/09/24 documented as of this encounter
--- OUTSIDE RECORDS SUMMARY | 2025-05-22 21:09 | XMS_ITS | Encounter Summary ---
Author Organization [facility] [employer] Address [id number] [address] [place] [address] Care Team Providers Care Fashion Model Name Role Phone Moni See ELECTROSLAG WELDING MACHINE OPERATOR-STICK ROLLER Primary Care Provider Reason for Visit * Reason Onset Date Comments Med Refill 04/26/2021 Encounter Details Date Type Department Care Team (Late st Contact Info) Description 04/26/2021 Refill [facility] [address] [place] [address] [place] [phone] Rashmi Henson APRN-STICK ROLLER [address] [facility] [address] [place], [place] [id number] Generalized anxiety disorder Social History Tobacco Use Types Packs/Day Years [...] AM EDT documented as of this encounter Plan of Treatment Upcoming Encounters Date Type Department Care Team (Late st Contact Info) Description 07/19/2025 3:00 PM EST Telemedicine [facility] [address] [facility] [address] [place] [phone] Domitila Selby MD [address] [facility] [address] [place] [address] 08/08/2025 2:30 PM EST Office Visit [facility] [address] [facility] [address] [place] [phone] Marta Hidalgo DO [address] [facility] [place] [address] documented as of this encounter Visit Diagnoses Diagnosis Generalized anxiety disorder documented in this encounter Additional Health Concerns Assessment Noted Time PHQ-9 Depression Total Score: 13 021 10:00 AM EST documented as of this encounter Care Teams Fashion Model Relationship Specialty Start Date End Date Moni See APRN-ANTHONY [address] [place], [place] [address], [place] [address] PCP - General Nurse Practitioner 03/09/24 documented as of this encounter
--- OUTSIDE RECORDS SUMMARY | 2025-05-22 21:09 | XMS_ITS | Encounter Summary ---
Author Organization [facility] Address [address] [place] [address] Care Team Providers Care Forest Economics Professor Name Role Phone Unavailable Primary Care Provider Unavailabl e Encounter Details Date Type Department Care Team (Late st Contact Info) Description 05/22/2025 Bamboo flowsheet [facility] [address] [place] [phone] Sherman Fuller, DO [address] [place], [facility] Social History Tobacco Use Types Packs/Day [...] PM EDT Procedure Visit [facility] [address] [facility] [place] [phone] Sherman Fuller, DO [address] [place], [facility] documented as of this encounter Visit Diagnoses Not on filedocumented in this encounter
--- OUTSIDE RECORDS SUMMARY | 2025-05-22 21:09 | XMS_ITS | Encounter Summary ---
Author Organization [employer] [facility] Address [facility][id number] [address] [place] [address] Care Team Providers Care Song Writer Name Role Phone SeeMoni coyne JONO-SEAMLESS TUBE ROLLER Primary Care Provider Encounter Details Date Type Department Care Team (Late st Contact Info) Description 12/15/2023 Telephone [facility] [address] [place] [address] [place] [address] La Nena Ashley CMA Social [...] often do you attend chur ch or confucianist services? More than 4 times per year 05/06/2021 Do you belong to any clubs o r organizations such as zoroastrianism groups, unions, fraternal or athletic groups, or [...] Answer Date Recorded Total Score 0 07/02/2023 [facility] - Occupational Stress Questionnaire Answer [...] Recorded Do you need help finding a [facility] and/or a training [...] Encounter - La Nena Ashley CMA - 12/15/2023 9:42 AM EDT Patient called into office after receiving message about having BMP drawn. She requested coming into the office to have them drawn. Patient scheduled for 12/18/23 * Telephone Encounter - PAL Rivera - 12/15/2023 9:42 AM EDT I changed the order thank you * Telephone Encounter - La Nena Ashley CMA - 12/15/2023 9:42 AM EDT Thank you documented in this encounter Plan of Treatment Upcoming Encounters Date Type Department Care Team (Late st Contact Info) Description 07/19/2025 3:00 PM EST Telemedicine [facility] [address] [place] [phone] Domitila Selby MD [address] [facility] [address] [place] [address] 08/08/2025 2:30 PM EST Office Visit [facility] [address] [facility] [address] [place] [phone] Marta Hidalgo, [address] [place] [address] documented as of this encounter Visit Diagnoses Not on filedocumented in this encounter Additional Health Concerns Assessment Noted Time PHQ-9 Depression Total Score: 0 07/02/20 23 3:28 PM EDT documented as of this encounter Care Teams Song Writer Relationship Specialty Start Date End Date Moni See APRN-ANTHONY [address] [place] [address], [place] [phone] PCP - General Nurse Practitioner 03/09/24 documented as of this encounter
--- OUTSIDE RECORDS SUMMARY | 2025-05-22 21:09 | XMS_ITS | Encounter Summary ---
Author Organization [facility] tem Address [id number] [address] [place] [address] Care Team Providers Care Bad Credit Collector Name Role Phone Moni See STRETCHER DRIER OPERATOR-[facility] Primary Care Provider Encounter Details Date Type Department Care Team (Late st Contact Info) Description 12/22/2023 Orders Only [facility] [address] [place] [phone] Moni See APRN-CARTON STAMPER [address] [place], [place] [address] Social History Tobacco Use Types Packs/Day Years [...] often do you attend chur ch or episcopalian services? More than 4 times per year 05/06/2021 Do you belong to any clubs o r organizations such as temple groups, unions, fraternal or athletic groups, or [...] Answer Date Recorded Total Score 0 07/02/2023 [facility] - Occupational Stress [...] Recorded Do you need help finding a [facility] career center and/or a training program? No [...] [address] [facility] [address] [place] [address] Domitila Selby MD [address] [facility] [address] [place] [address] 08/08/2025 2:30 PM EST Office Visit [facility] [address] [facility] [address] [place] [address] Marta Hidalgo DO [address] [facility], [address] [place] [address] documented as of this encounter Visit Diagnoses Not on filedocumented in this encounter Additional Health Concerns Assessment Noted Time PHQ-9 Depression Total Score: 0 07/02/20 23 3:28 PM EDT documented as of this encounter Care Teams Bad Credit Collector Relationship Specialty Start Date End Date Moni See APRN-CNP [address] [place] [address], [place] [phone] PCP - General Nurse Practitioner 03/09/24 documented as of this encounter
--- OUTSIDE RECORDS SUMMARY | 2025-05-22 21:09 | XMS_ITS | CCD ---
Author Organization [facility] Care Team Providers Care Director Education Name Role Phone HARSHAL ROLDAN Referring Unavailable SIXTO, CAROLE A Primary Care Unavailable Sixto, Carole A Primary Care Provider KARASIK ., DR KAUFFMAN Admitting Unavailabl e KARASIK ., DR KAUFFMAN Attending Unavailabl e KARASIK ., DR KAUFFMAN Consulting Unavailabl e KARASIK ., DR KAUFFMAN Admitting Unavailabl e KARASIK ., DR KAUFFMAN Attending Unavailabl e KARASIK ., DR KAUFFMAN Consulting Unavailabl e KARASIK ., DR KAUFFMAN Admitting Unavailabl e KARASIK ., DR KAUFFMAN Attending Unavailabl e KARASIK ., DR KAUFFMAN Consulting Unavailabl e JONNY SHERMAN Attending Unavailable JONNYMORGANY Attending Unavailable Unavailable Primary Care Provider Unavailabl e Glover SUPERVISOR POULTRY HATCHERY-MANAGER FIBER, Adams Primary Care Provider Glover SUPERVISOR POULTRY HATCHERY-MANAGER FIBER, Adams Primary Care Provider Glover SUPERVISOR POULTRY HATCHERY-MANAGER FIBER, Adams Primary Care Provider GLOVER, ADAMS Referring Unavailable GLOVER, ADAMS Primary Care Unavailable GLOVER, ADAMS Referring Unavailable GLOVER, ADAMS Primary Care Unavailable GLOVER, ADAMS Referring Unavailable GLOVER, ADAMS Primary Care Unavailable WERNER MOREIRA Referring Unavailable GLOVER, ADAMS Primary Care Unavailable WERNER MOREIRA Referring Unavailable GLOVER, ADAMS Primary Care Unavailable MOREIRA, WERNER E Referring Unavailable GLOVER, ADAMS Primary Care Unavailable [...] Referring Unavailable GLOVER, ADAMS Primary Care Unavailable WERNER MOREIRA Attending Unavailable GLOVER, ADAMS Referring Unavailable GLOVER, ADAMS Primary Care Unavailable GLOVER, ADAMS Attending Unavailable GLOVER, ADAMS Referring Unavailable GLOVER, ADAMS Primary Care Unavailable KAREN GOTTI Attending Unavailable GLOVER, ADAMS Referring Unavailable GLOVER, ADAMS Primary Care Unavailable WERNER MOREIRA Attending Unavailable GLOVER, ADAMS Referring Unavailable GLOVER, ADAMS Primary Care Unavailable CAYETANOYINA Attending Unavailable GLOVER, ADAMS Referring Unavailable GLOVER, ADAMS Primary Care Unavailable CAYETANOYINA Attending Unavailable GLOVER, ADAMS Referring Unavailable GLOVER, ADAMS Primary Care Unavailable TIMMYMANOHAR AGUAYO Attending Unavailable GLOVER, ADAMS Referring Unavailable GLOVER, ADAMS Primary Care Unavailable CAYETANOYINA Attending Unavailable GLOVER, ADAMS Referring Unavailable GLOVER, ADAMS Primary Care Unavailable CAYETANO, YINA Nam Attending Unavailable GLOVER, ADAMS Referring Unavailable GLOVER, ADAMS Primary Care Unavailable CAYETANOYINA Attending Unavailable GLOVER, ADAMS Referring Unavailable GLOVER, ADAMS Primary Care Unavailable CAYETANOYINA Attending Unavailable GLOVER, ADAMS Referring Unavailable GLOVER, ADAMS Primary Care Unavailable CAYETANOYINA Attending Unavailable GLOVER, ADAMS Referring Unavailable GLOVER, ADAMS Primary Care Unavailable CAYETANO, YINA Nam Attending Unavailable SIXTOCAROLE Referring Unavailable GLOVER, ADAMS Primary Care Unavailable TIMMYMANOHAR AGUAYO Attending Unavailable GLOVER, ADAMS Referring Unavailable GLOVER, ADAMS Primary Care Unavailable Allergies Allergy Classification Reported Allergen(s) Allergy Type Date of Onset Reaction(s) Facility (6 sources) Penicillins; Translations: [PENICILLINS] Drug allergy (disorder) 08-31-19 [facility] (1 source) Sulfonamides (Antibiotic) Drug allergy (disorder) 08-31-19 [facility] (4 sources) Penicillins Propensity to adverse reactions 03-23-20 23 [facility] (4 sources) Sulfamethoxazole / Trimethoprim Drug Allergy 03-23-20 23 [facility] (20 sources) Sulfonamides (Antibiotic) Propensity to adverse reactions 01-07-20 [facility] (20 sources) Amoxicillin / Clavulanate; Translations: [AMOXICILLIN-POT CLAVULANATE] Drug Allergy 09-10-19 Hives, Itching, Rash [facility] (20 sources) Penicillins Propensity to adverse reactions to drug 01-07-20 [facility] (16 sources) Penicillins Propensity to adverse reactions to drug 01-07-20 [facility] (4 sources) Sulfonamides (Antibiotic); Translations: [SULFA (SULFONAMIDE ANTIBIOTICS)] Propensity to adverse reactions to drug (disorder) 01-07-20 [facility] Medications Current Medications Medication Drug Class(es) Dates Sig (Normalized) Sig (Original) acyclovir 50 mg buccal tablet (4 sources) Herpesvirus Nucleoside Analog DNA Polymerase Inhibitor, Herpes Simplex Virus Nucleoside Analog DNA Polymerase Inhibitor, Herpes Zoster Virus Nucleoside Analog DNA Polymerase Inhibitor Acyclovir 50 MG tablet 1 capsule 1 (one) time each day at the same time. Active cephalexin 500 mg oral capsule (4 sources) Cephalosporin Antibacterial Start: 05-30-2024 End: 06-04-2024 take 1 capsule by mouth three times daily CEPHalexin (KEFLEX) 500 mg capsule Take 1 capsule (500 mg total) by mouth 3 (three) times a day for 5 days. 15 capsule 05/30/2024 06/04/2024 Active Start: 04-27-2024 End: 05-02-2024 take 1 capsule by mouth three times daily CEPHalexin (KEFLEX) 500 mg capsule Take 1 capsule (500 mg total) by mouth 3 (three) times a day for 5 days. 15 capsule 04/27/2024 05/02/2024 Active 24 hr desvenlafaxine succinate 100 mg extended release oral tablet (20 sources) Serotonin and Norepinephrine Reuptake Inhibitor Start: 05-06-2024 take 1 tablet by mouth once daily in the morning desvenlafaxine (PRISTIQ) 100 mg 24 hr tablet Indications: Moderate episode of recurrent major depressive disorder (CMS-HCC) take 1 tablet by mouth every morning 90 tablet 3 05/06/2024 Active Start: 06-08-2023 take 1 tablet by estela th every twenty-four hours in the morning desvenlafaxine (PRISTIQ) 100 mg 24 hr tablet Indications: Moderate episode of recurrent major depressive disorder (CMS-HCC) Take 1 tablet (100 mg total) by mouth in the morning. 90 tablet 3 06/08/2023 Active desvenlafaxine s uccinate ER (Pristiq) 25 MG 24 hour tablet Pristiq Active Ethinyl Estradiol / norgestimate (20 sources) Progestin, Estrogen Start: 02-20-2025 take 1 tablet by mouth once daily Tri-Sprintec 0.18/0.215/0.25 MG-35 MCG tablet Indications: Encounter for surveillance of contraceptive pills TAKE 1 TABLET BY MOUTH DAILY 28 tablet 3 02/20/2025 Active Start: 03-08-2024 End: 03-08-2025 take 1 tablet by mouth once daily norgestimate-ethinyl estradiol (Ortho Tri-Cyclen,Trinessa) 0.18/0.215/0.25 MG-35 MCG tablet Indications: Encounter for surveillance of contraceptive pills Take 1 tablet by mouth Daily 28 tablet 12 03/08/2024 03/08/2025 Active Start: 09-02-2019 TRI-SPRINTEC, 28, 0.18/0.215/0.25 mg-35 mcg (28) per tablet 09/02/2019 Active Start: 09-02-2019 TRI-SPRINTEC, 28, 0.18/0.215/0.25 mg-35 mcg (28) per tablet norgestimate-eth inyl estradiol (Ortho-Cyclen) 0.25-35 MG-MCG tablet Take 1 tablet by mouth Daily Active hydrOXYzine pamoate 25 mg oral capsule (20 sources) Antihistamine Start: 02-11-2024 take 1 capsule by mouth three times daily as needed for anxiety hydrOXYzine (VISTARIL) 25 mg capsule Indications: Anxiety with depression Take 1 capsule (25 mg total) by mouth 3 (three) times a day as needed for anxiety. 270 capsule 1 02/11/2024 Active Start: 04-27-2023 End: 09-14-2023 take 1 capsule by mouth three times daily as needed for anxiety hydrOXYzine (VISTARIL) 25 mg capsule Indications: Anxiety with depression Take 1 capsule (25 mg total) by mouth 3 (three) times a day as needed for anxiety. 270 capsule 1 04/27/2023 09/14/2023 Discontinued (Drug interaction) hydrOXYzine HCl (Atarax) 25 MG tablet every 8 (eight) hours. Active lisdexamfetamine dimesylate 50 mg oral capsule (20 sources) Central Nervous System Stimulant Start: 04-14-2025 take 1 capsule by mouth once daily in the morning lisdexamfetamine (VYVANSE) 50 mg capsule Indications: Attention deficit hyperactivity disorder (ADHD), combined type Take 1 capsule (50 mg total) by mouth every morning. Max Daily Amount: 50 mg 30 capsule 04/14/2025 Active Start: 04-14-2025 take 1 capsule by mo uth once daily in the morning lisdexamfetamine (VYVANSE) 50 mg capsule Indications: Attention deficit hyperactivity disorder (ADHD), combined type Take 1 capsule (50 mg total) by mouth every morning. Max Daily Amount: 50 mg 30 capsule 04/14/2025 Active Start: 04-14-2025 take 1 capsule by mo uth once daily in the morning lisdexamfetamine (VYVANSE) 50 mg capsule Indications: Attention deficit hyperactivity disorder (ADHD), combined type Take 1 capsule (50 mg total) by mouth every morning. Max Daily Amount: 50 mg 30 capsule 04/14/2025 Active Start: 04-14-2025 take 1 capsule by mo uth once daily in the morning lisdexamfetamine (VYVANSE) 50 mg capsule Indications: Attention deficit hyperactivity disorder (ADHD), combined type Take 1 capsule (50 mg total) by mouth every morning. Max Daily Amount: 50 mg 30 capsule 04/14/2025 Active Start: 04-14-2025 take 1 capsule by mo uth once daily in the morning lisdexamfetamine (VYVANSE) 50 mg capsule Indications: Attention deficit hyperactivity disorder (ADHD), combined type Take 1 capsule (50 mg total) by mouth every morning. Max Daily Amount: 50 mg 30 capsule 04/14/2025 Active Start: 04-14-2025 take 1 capsule by mo uth once daily in the morning lisdexamfetamine (VYVANSE) 50 mg capsule Indications: Attention deficit hyperactivity disorder (ADHD), combined type Take 1 capsule (50 mg total) by mouth every morning. Max Daily Amount: 50 mg 30 capsule 04/14/2025 Active Start: 04-14-2025 take 1 capsule by mo uth once daily in the morning lisdexamfetamine (VYVANSE) 50 mg capsule Indications: Attention deficit hyperactivity disorder (ADHD), combined type Take 1 capsule (50 mg total) by mouth every morning. Max Daily Amount: 50 mg 30 capsule 04/14/2025 Active Start: 04-14-2025 take 1 capsule by mo uth once daily in the morning lisdexamfetamine (VYVANSE) 50 mg capsule Indications: Attention deficit hyperactivity disorder (ADHD), combined type Take 1 capsule (50 mg total) by mouth every morning. Max Daily Amount: 50 mg 30 capsule 04/14/2025 Active Start: 04-14-2025 take 1 capsule by mo uth once daily in the morning lisdexamfetamine (VYVANSE) 50 mg capsule Indications: Attention deficit hyperactivity disorder (ADHD), combined type Take 1 capsule (50 mg total) by mouth every morning. Max Daily Amount: 50 mg 30 capsule 04/14/2025 Active Start: 04-14-2025 take 1 capsule by mo uth once daily in the morning lisdexamfetamine (VYVANSE) 50 mg capsule Indications: Attention deficit hyperactivity disorder (ADHD), combined type Take 1 capsule (50 mg total) by mouth every morning. Max Daily Amount: 50 mg 30 capsule 04/14/2025 Active Start: 04-14-2025 take 1 capsule by mo uth once daily in the morning lisdexamfetamine (VYVANSE) 50 mg capsule Indications: Attention deficit hyperactivity disorder (ADHD), combined type Take 1 capsule (50 mg total) by mouth every morning. Max Daily Amount: 50 mg 30 capsule 04/14/2025 Active Start: 03-15-2025 take 1 capsule by mo uth once daily in the morning lisdexamfetamine (VYVANSE) 50 mg capsule Indications: Attention deficit hyperactivity disorder (ADHD), combined type Take 1 capsule (50 mg total) by mouth every morning. Max Daily Amount: 50 mg 30 capsule 03/15/2025 Active Start: 03-15-2025 take 1 capsule by mo uth once daily in the morning lisdexamfetamine (VYVANSE) 50 mg capsule Indications: Attention deficit hyperactivity disorder (ADHD), combined type Take 1 capsule (50 mg total) by mouth every morning. Max Daily Amount: 50 mg 30 capsule 03/15/2025 Active Start: 03-15-2025 take 1 capsule by mo uth once daily in the morning lisdexamfetamine (VYVANSE) 50 mg capsule Indications: Attention deficit hyperactivity disorder (ADHD), combined type Take 1 capsule (50 mg total) by mouth every morning. Max Daily Amount: 50 mg 30 capsule 03/15/2025 Active Start: 03-15-2025 take 1 capsule by mo uth once daily in the morning lisdexamfetamine (VYVANSE) 50 mg capsule Indications: Attention deficit hyperactivity disorder (ADHD), combined type Take 1 capsule (50 mg total) by mouth every morning. Max Daily Amount: 50 mg 30 capsule 03/15/2025 Active Start: 02-09-2025 take 1 capsule by mo uth once daily in the morning lisdexamfetamine (VYVANSE) 50 mg capsule Indications: Attention deficit hyperactivity disorder (ADHD), combined type Take 1 capsule (50 mg total) by mouth every morning. Max Daily Amount: 50 mg 30 capsule 02/09/2025 Active Start: 11-03-2024 take 1 capsule by mo uth once daily in the morning lisdexamfetamine (VYVANSE) 50 mg capsule Indications: Attention deficit hyperactivity disorder (ADHD), combined type Take 1 capsule (50 mg total) by mouth every morning. Max Daily Amount: 50 mg 30 capsule 12/22/2024 Active Start: 09-05-2024 take 1 capsule by mo uth once daily in the morning lisdexamfetamine (VYVANSE) 50 mg capsule Indications: Attention deficit hyperactivity disorder (ADHD), combined type Take 1 capsule (50 mg total) by mouth every morning. Max Daily Amount: 50 mg 30 capsule 09/05/2024 Active Start: 04-12-2024 take 1 capsule by mo uth once daily in the morning lisdexamfetamine (VYVANSE) 40 mg capsule Indications: Attention deficit hyperactivity disorder (ADHD), combined type Take 1 capsule (40 mg total) by mouth every morning. MAY FILL IN 30 DAYS. Max Daily Amount: 40 mg 30 capsule 04/12/2024 Active Start: 09-22-2023 End: 01-26-2024 take 1 capsule by mouth once daily in the morning lisdexamfetamine (VYVANSE) 40 mg capsule Indications: Attention deficit hyperactivity disorder (ADHD), combined type Take 1 capsule (40 mg total) by mouth in the morning. Max Daily Amount: 40 mg. 30 capsule 02/25/2024 Active Start: 07-21-2023 take 1 capsule by mo uth once daily in the morning lisdexamfetamine (VYVANSE) 40 mg capsule Indications: Attention deficit hyperactivity disorder (ADHD), combined type Take 1 capsule (40 mg total) by mouth in the morning. Max Daily Amount: 40 mg. 30 capsule 0 07/21/2023 Active lisinopril 10 mg oral tablet (19 sources) Angiotensin Converting Enzyme Inhibitor Start: 11-21-2024 End: 03-24-2025 take 1 tablet by mouth in the morning lisinopriL (PRINIVIL,ZESTRIL) 10 mg tablet Indications: Primary hypertension TAKE 1 TABLET(10 MG) BY MOUTH IN THE MORNING 90 tablet 1 03/24/2025 Active loperamide hydrochloride 2 mg oral tablet (20 sources) Opioid Agonist Start: 09-17-2023 take 1 tablet by mouth four times daily as needed for diarrhea loperamide (IMODIUM A-D) 2 mg tablet Take 1 tablet (2 mg total) by mouth 4 (four) times a day as needed for diarrhea. 30 tablet 09/17/2023 Active magnesium oxide 400 mg oral tablet (13 sources) Start: 01-25-2025 take 1 tablet by mouth at bedtime magnesium oxide (MAGOX) 400 mg tablet Take 1 tablet (400 mg total) by mouth before bedtime. 30 tablet 2 01/25/2025 Active meclizine hydrochloride 12.5 mg oral tablet (13 sources) Antiemetic Start: 01-25-2025 take 1 tablet by mouth three times daily as needed for dizziness meclizine (ANTIVERT) 12.5 mg tablet Take 1 tablet (12.5 mg total) by mouth 3 (three) times a day as needed for dizziness. 30 tablet 1 01/25/2025 Active nitrofurantoin, macrocrystals 25 mg / nitrofurantoin, monohydrate 75 mg oral capsule (5 sources) Nitrofuran Antibacterial Start: 03-21-2025 End: 03-26-2025 take 1 capsule by mouth in the morning, then take 1 capsule by mouth at bedtime nitrofurantoin, macrocrystal-monohydra te, (MACROBID) 100 mg capsule Take 1 capsule (100 mg total) by mouth in the morning and 1 capsule (100 mg total) before bedtime. Do all this for 5 days. 10 capsule 03/21/2025 03/26/2025 Active Start: 09-26-2024 End: 10-01-2024 take 1 capsule by mouth in the morning, then take 1 capsule by mouth at bedtime nitrofurantoin, macrocrystal-monohydrate , (MACROBID) 100 mg capsule Take 1 capsule (100 mg total) by mouth in the morning and 1 capsule (100 mg total) before bedtime. Do all this for 5 days. 10 capsule 09/26/2024 10/01/2024 Active ondansetron 4 mg disintegrating oral tablet (20 sources) Serotonin-3 Receptor Antagonist Start: 04-14-2025 take 1 tablet by mouth every eight hours as needed for nausea and vomiting ondansetron ODT (ZOFRAN ODT) 4 mg disintegrating tablet Dissolve 1 tablet (4 mg total) on tongue every 8 (eight) hours as needed for nausea or vomiting. 20 tablet 04/14/2025 Active Start: 12-02-2023 End: 01-25-2025 take 1 tablet by mouth every eight hours as needed for nausea and vomiting ondansetron ODT (ZOFRAN ODT) 4 mg disintegrating tablet Dissolve 1 tablet (4 mg total) on tongue every 8 (eight) hours as needed for nausea or vomiting. 20 tablet 09/07/2024 01/25/2025 Discontinued (Therapy completed) Start: 03-04-2022 End: 11-04-2023 ondansetron ODT (ZOFRAN ODT) 4 mg disintegrating tablet Dissolve 1 tablet (4 mg total) on tongue 3 (three) times a day as needed for nausea for up to 3 doses. 3 tablet 0 03/04/2022 11/04/2023 Discontinued (Therapy completed) microencapsulated potassium chloride 20 meq extended release oral tablet (20 sources) Start: 11-05-2023 End: 01-29-2024 take 1 tablet by mouth three times daily potassium chloride (KLOR-CON M 20) 20 MEQ CR tablet Take 1 tablet (20 mEq total) by mouth 3 (three) times a day. 90 tablet 1 01/29/2024 Active Start: 09-14-2023 End: 09-28-2023 take 1 tablet by mouth in the morning potassium chloride (KLOR-CON M 20) 20 MEQ CR tablet Take 1 tablet (20 mEq total) by mouth in the morning and 1 tablet (20 mEq total) before bedtime. Do all this for 14 days. 28 tablet 0 09/14/2023 09/28/2023 Active semaglutide, weight loss, (WEGOVY) 0.5 mg/0.5 mL pen injector (19 sources) Start: 03-04-2024 End: 03-10-2024 semaglutide, weight loss, (WEGOVY) 0.5 mg/0.5 mL pen injector Indications: Primary hypertension , Encounter for weight management , Obesity (BMI 30-39.9) , Mixed hyperlipidemia Inject 0.5 mL (0.5 mg total) under the skin every 7 days. 2 mL 03/04/2024 03/10/2024 Discontinued Start: 03-04-2024 semaglutide, w eight loss, (WEGOVY) 0.5 mg/0.5 mL pen injector Indications: Primary hypertension , Encounter for weight management , Obesity (BMI 30-39.9) , Mixed hyperlipidemia Inject 0.5 mL (0.5 mg total) under the skin every 7 days. 2 mL 03/04/2024 Active Start: 01-21-2024 End: 03-03-2024 semaglutide, weight loss, (W EGOVY) 0.5 mg/0.5 mL pen injector Indications: Primary hypertension , Encounter for weight management , Obesity (BMI 30-39.9) , Mixed hyperlipidemia Inject 0.5 mL (0.5 mg total) under the skin every 7 days. 2 mL 01/21/2024 03/03/2024 Discontinued (Reorder) Start: 01-21-2024 semaglutide, w eight loss, (WEGOVY) 0.5 mg/0.5 mL pen injector Indications: Primary hypertension , Encounter for weight management , Obesity (BMI 30-39.9) , Mixed hyperlipidemia Inject 0.5 mL (0.5 mg total) under the skin every 7 days. 2 mL 01/21/2024 Active Start: 12-20-2023 End: 01-21-2024 semaglutide, weight loss, (W EGOVY) 0.5 mg/0.5 mL pen injector Indications: Primary hypertension , Encounter for weight management , Obesity (BMI 30-39.9) , Mixed hyperlipidemia Inject 0.5 mL (0.5 mg total) under the skin every 7 days. 2 mL 12/20/2023 01/21/2024 Discontinued (Reorder) Start: 12-20-2023 semaglutide, w eight loss, (WEGOVY) 0.5 mg/0.5 mL pen injector Indications: Primary hypertension , Encounter for weight management , Obesity (BMI 30-39.9) , Mixed hyperlipidemia Inject 0.5 mL (0.5 mg total) under the skin every 7 days. 2 mL 12/20/2023 Active Start: 12-14-2023 End: 12-20-2023 semaglutide, weight loss, (W EGOVY) 0.5 mg/0.5 mL pen injector Indications: Primary hypertension , Encounter for weight management , Obesity (BMI 30-39.9) , Mixed hyperlipidemia Inject 0.5 mL (0.5 mg total) under the skin every 7 days. 2 mL 12/14/2023 12/20/2023 Discontinued (Reorder) Start: 12-14-2023 semaglutide, w eight loss, (WEGOVY) 0.5 mg/0.5 mL pen injector Indications: Primary hypertension , Encounter for weight management , Obesity (BMI 30-39.9) , Mixed hyperlipidemia Inject 0.5 mL (0.5 mg total) under the skin every 7 days. 2 mL 12/14/2023 Active valACYclovir 1000 mg oral tablet (20 sources) Herpesvirus Nucleoside Analog DNA Polymerase Inhibitor, Herpes Simplex Virus Nucleoside Analog DNA Polymerase Inhibitor, Herpes Zoster Virus Nucleoside Analog DNA Polymerase Inhibitor Start: 08-27-2020 valACYclovir (VALTR EX) 1000 mg tablet 08/27/2020 Active Start: 07-20-2019 End: 11-04-2023 take 1 tablet by mouth once daily as needed valACYclovir (VALTREX) 500 mg tablet Take 1 tablet (500 mg total) by mouth daily as needed. 0 07/20/2019 11/04/2023 Discontinued (Duplicate Listing) Wegovy 0.25 MG/0.5ML solutio n auto-injector (3 sources) Start: 11-30-2023 Wegovy 0.25 MG /0.5ML solution auto-injector ADMINISTER 0.25 MG UNDER THE SKIN EVERY 7 DAYS 11/30/2023 Active Completed/Discontinued Medications Medication Drug Class(es) Dates Sig (Normalized) Sig (Original) chlorthalidone 25 mg oral tablet (20 sources) Thiazide-like Diuretic Start: 02-11-2024 End: 02-11-2024 take 0.5 tablet by mouth once daily chlorthalidone (HYGROTON) 25 mg tablet Take 0.5 tablets (12.5 mg total) by mouth daily. 02/11/2024 02/11/2024 Discontinued (Therapy completed) Start: 08-06-2023 End: 05-18-2024 take 1 tablet by mouth once daily chlorthalidone (HYGROTON) 25 mg tablet take 1 tablet by mouth once daily 30 tablet 3 01/26/2024 Active famotidine 20 mg oral tablet (19 sources) Histamine-2 Receptor Antagonist Start: 04-04-2024 End: 01-25-2025 take 1 tablet by mouth once daily in the morning, then take 1 tablet by mouth at bedtime famotidine (PEPCID) 20 mg tablet TAKE 1 TABLET BY MOUTH EVERY MORNING AND 1 BEFORE BEDTIME 180 tablet 06/27/2024 01/25/2025 Discontinued (Therapy completed) Start: 04-04-2024 take 1 tablet by estela th in the morning famotidine (PEPCID) 20 mg tablet Take 1 tablet (20 mg total) by mouth in the morning. 30 tablet 1 04/04/2024 Active pantoprazole 40 mg delayed release oral tablet (12 sources) Proton Pump Inhibitor Start: 02-11-2024 End: 06-27-2024 take 1 tablet by mouth in the morning pantoprazole (PROTONIX) 40 mg EC tablet Take 1 tablet (40 mg total) by mouth in the morning. 30 tablet 1 02/11/2024 06/27/2024 Discontinued (Therapy completed) semaglutide, weight loss, (WEGOVY) 0.25 mg/0.5 mL pen injector (11 sources) Start: 11-26-2023 End: 12-14-2023 semaglutide, weight loss, (WEGOVY) 0.25 mg/0.5 mL pen injector Indications: Encounter for weight management , Obesity (BMI 30-39.9) , Mixed hyperlipidemia , Primary hypertension Inject 0.5 mL (0.25 mg total) under the skin every 7 days. 2 mL 11/26/2023 12/14/2023 Discontinued (Dose adjustment) Start: 11-26-2023 semaglutide, w eight loss, (WEGOVY) [...] 7 days. 2 mL 0 11/04/2023 Active semaglutide, weight loss, (WEGOVY) 1 mg/0.5 mL pen injector (18 sources) Start: 06-27-2024 End: 01-25-2025 semaglutide, weight loss, (WEGOVY) 1 mg/0.5 mL pen injector Indications: Mixed hyperlipidemia , Primary hypertension Inject 0.5 mL (1 mg total) under the skin every 7 days. 2 mL 1 06/27/2024 01/25/2025 Discontinued (Therapy completed) Start: 06-27-2024 semaglutide, w eight loss, (WEGOVY) 1 mg/0.5 mL pen injector Indications: Mixed hyperlipidemia , Primary hypertension Inject 0.5 mL (1 mg total) under the skin every 7 days. 2 mL 1 06/27/2024 Active Start: 03-23-2024 End: 06-27-2024 semaglutide, weight loss, (W EGOVY) 1 mg/0.5 mL pen injector Indications: Obesity (BMI 30-39.9) , Mixed hyperlipidemia , Primary hypertension Inject 0.5 mL (1 mg total) under the skin every 7 days. 2 mL 1 03/23/2024 06/27/2024 Discontinued (Reorder) Start: 03-23-2024 semaglutide, w eight loss, (WEGOVY) 1 mg/0.5 mL pen injector Indications: Obesity (BMI 30-39.9) , Mixed hyperlipidemia , Primary hypertension Inject 0.5 mL (1 mg total) under the skin every 7 days. 2 mL 1 03/23/2024 Active WEGOVY 0.5 mg/0.5 mL pen injector (2 sources) Start: 03-10-2024 End: 03-23-2024 WEGOVY 0.5 mg/0.5 mL pen inj dede Indications: Primary hypertension , Encounter for weight management , Obesity (BMI 30-39.9) , Mixed hyperlipidemia ADMINISTER 0.5 MG UNDER THE SKIN EVERY 7 DAYS 2 mL 03/10/2024 03/23/2024 Discontinued (Dose adjustment) Start: 03-10-2024 WEGOVY 0.5 mg/ 0.5 mL pen injector Indications: Primary hypertension , Encounter for weight management , Obesity (BMI 30-39.9) , Mixed hyperlipidemia ADMINISTER 0.5 MG UNDER THE SKIN EVERY 7 DAYS 2 mL 03/10/2024 Active Problems Active Problems Problem Classification Problem Date Documented Date Episodic/Chronic Anxiety disorders (20 sources) Generalized anxiety disorder; Translations: [Generalized anxiety disorder] Onset: 03-10-2019 03-10-2019 Chronic Attention-deficit, conduct, and disruptive behavior disorders (20 sources) Attention deficit hyperactivity disorder; Translations: [Attention-deficit hyperactivity disorder, unspecified type] Onset: 09-02-2019 03-29-2020 Chronic Attention-deficit, conduct, and disruptive behavior disorders (1 source) Attention deficit hyperactivity disorder, combined type; Translations: [Attention-deficit hyperactivity disorder, combined type] 12-21-2024 Chronic Attention-deficit, conduct, and disruptive behavior disorders (1 source) Attention-deficit hyperactivity disorder, combined type; Translations: [Attention-deficit hyperactivity disorder, combined type] Onset: 03-29-2020 Chronic Cancer of cervix (2 sources) Atypical squamous cells of undetermined significance on cytologic smear of cervix (ASC-US); Translations: [Low grade squamous intraepithelial lesion on cervical Papanicolaou smear] Onset: 01-10-2022 05-18-2024 Episodic Coma; stupor; and brain damage (2 sources) Daytime somnolence 12-21-2024 Episodic Conditions associated with dizziness or vertigo (1 source) Vertigo; Translations: [Dizziness and giddiness] 01-26-2025 Episodic Disorders of lipid metabolism (13 sources) Mixed hyperlipidemia; Translations: [Mixed hyperlipidemia] Onset: 06-27-2024 12-20-2023 Chronic Essential hypertension (20 sources) Essential hypertension; Translations: [Essential (primary) hypertension] Onset: 08-06-2023 08-06-2023 Chronic Immunizations and screening for infectious disease (1 source) Encounter for screening for human papillomavirus (HPV); Translations: [ENC SCREENING HUMAN PAPILLOMAVIRUS] Onset: 11-04-2022 Episodic Malaise and fatigue (6 sources) Fatigue; Translations: [Chronic fatigue, unspecified] Onset: 04-20-2024 03-23-2024 Chronic Mood disorders (20 sources) Moderate recurrent major depression; Translations: [Major depressive disorder, recurrent, moderate] Onset: 08-22-2024 08-22-2024 Chronic Other connective tissue disease (1 source) Pain in right lower leg; Translations: [Pain of right lower leg] Episodic Other hereditary and degenerative nervous system conditions (2 sources) Restless legs; Translations: [Restless legs syndrome] 01-25-2025 Chronic Other hereditary and degenerative nervous system conditions (1 source) Restless legs syndrome; Translations: [Restless legs syndrome] Onset: 01-25-2025 Chronic Other nutritional; endocrine; and metabolic disorders (9 sources) Body mass index 30+ - obesity; Translations: [Obesity, unspecified] 12-20-2023 Chronic Other nutritional; endocrine; and metabolic disorders (1 source) Obesity, unspecified; Translations: [Obesity, unspecified] Onset: 06-27-2024 Chronic Other screening for suspected conditions (not mental disorders or infectious disease) (4 sources) Encounter for screening for malignant neoplasm of cervix; Translations: [ENC SCREENING MALIG NEOPLASM CERV] Onset: 11-03-2022 Episodic Other upper respiratory disease (1 source) Rhinitis medicamentosa; Translations: [Chronic rhinitis] 04-12-2025 Chronic Other upper respiratory disease (4 sources) Nasal congestion; Translations: [Nasal congestion] Onset: 04-12-2025 04-12-2025 Episodic Other upper respiratory disease (1 source) Nasal congestion; Translations: [Nasal congestion] Onset: 04-11-2025 Episodic Residual codes; unclassified (3 sources) Daytime somnolence; Translations: [Other hypersomnia] 12-20-2024 Chronic Residual codes; unclassified (2 sources) Other hypersomnia; Translations: [Other hypersomnia] Onset: 12-20-2024 Chronic Residual codes; unclassified (1 source) Obstructive sleep apnea syndrome; Translations: [Obstructive sleep apnea (adult) (pediatric)] 04-11-2025 Chronic Residual codes; unclassified (1 source) Hypersomnia; Translations: [Hypersomnia, unspecified] 04-11-2025 Chronic Residual codes; unclassified (1 source) Obstructive sleep apnea (adult) (pediatric); Translations: [Obstructive sleep apnea (adult) (pediatric)] Onset: 04-11-2025 Chronic Residual codes; unclassified (1 source) Hypersomnia, unspecified; Translations: [Hypersomnia, unspecified] Onset: 04-11-2025 Chronic Unclassified (1 source) New Patient Onset: 12-20-2024 Unclassified (1 source) wellness Onset: 11-21-2024 Unclassified (1 source) BH Diagnostic Assessment Onset: 08-22-2024 Past or Other Problems Problem Classification Problem Date Documented Da te Episodic/Chronic Administrative/social admission (9 sources) Patient encounter status; Translations: [Persons encountering health services in other specified circumstances] 12-20-2023 Episodic Allergic reactions (3 sources) Urticaria; Translations: [Urticaria, unspecified] Onset: 04-20-2024 03-23-2024 Episodic Fluid and electrolyte disorders (4 sources) Hypokalemia; Translations: [Hypokalemia] 01-13-2024 Episodic Genitourinary symptoms and ill-defined conditions (2 sources) Dysuria; Translations: [Dysuria] Onset: 04-27-2024 04-27-2024 Episodic Mood disorders (20 sources) Mood disorders Onset: 08-22-2024 Resolved: 11-21-2024 08-22-2024 Mycoses (1 source) Mycosis; Translations: [Candidiasis, unspecified] Onset: 09-06-2024 09-06-2024 Episodic Nausea and vomiting (5 sources) Nausea; Translations: [Nausea] Onset: 12-18-2023 12-18-2023 Episodic Other female genital disorders (1 source) Pruritus of vagina; Translations: [Other specified noninflammatory disorders of vagina] Onset: 09-06-2024 09-06-2024 Episodic Other gastrointestinal disorders (2 sources) Constipation; Translations: [Constipation, unspecified] 02-14-2024 Episodic Residual codes; unclassified (1 source) Disturbance in sleep behavior; Translations: [Sleep disorder, unspecified] 06-28-2024 Episodic Urinary tract infections (1 source) Acute cystitis; Translations: [Acute cystitis with hematuria] 04-27-2024 Episodic Results Test Name Value Interpretation Reference Range Facility DRUG SCREEN, URINEon 025 AMPHETAMINE/METHAMP Negative Normal Negative [facility] Comment on above: Result Comment: AMPH /METH screening cut off = 1000 ng/mL Performed By: #### D GASTELUM #### [facility] ([facility]) [address] [place] [address] VIR BARBITURATES Negative Normal Negative [facility] Comment on above: Result Comment: Shelby iturates screening cut off value = 200 ng/mL Performed By: #### D GASTELUM #### [facility] ([facility]) [address] [place] [address] VIR BENZODIAZEPINES Negative Normal Negative [facility] Comment on above: Result Comment: Too odiazepines screening cut off value = 200 ng/mL Performed By: #### D GASTELUM #### [facility] ([facility]) [address] [place] [address] VIR CANNABINOIDS Negative Normal Negative [facility] Comment on above: Result Comment: Micheline abinoids/THC screening cut off value = 50 ng/mL Performed By: #### D GASTELUM #### [facility] ([facility]) [address] [place] [address] VIR COCAINE METABOLITE Negative Normal Negative [facility] Comment on above: Result Comment: Coca ine screening cut off value = 300 ng/mL Performed By: #### D GASTELUM #### [facility] ([facility]) [address] [place] [address] VIR ECSTASY Negative Normal Negative [facility] Comment on above: Result Comment: Ecst asy screening cut off value = 500 ng/mL Performed By: #### D GASTELUM #### [facility] ([facility]) [address] [place] [address] VIR METHADONE Negative Normal Negative [facility] Comment on above: Result Comment: Meth adone screening cut off value = 300 ng/mL. Performed By: #### D GASTELUM #### [facility] ([facility]) [address] [place] [address] VIR OPIATES Negative Normal Negative [facility] Comment on above: Result Comment: Opia harrison screening cut off value = 300 ng/mL This test is used for the detection of codeine, hydrocodone (>1000 ng/mL), morphine and hydromorphone (>900 ng/mL) in urine. Performed By: #### D GASTELUM #### [facility] ([facility]) [address] [place] [address] VIR OXYCODONE Negative Normal Negative [facility] Comment on above: Result Comment: Oxyc odone screening cut off value = 300 ng/mL This test is used for the detection of oxycodone and oxymorphone in urine. Performed By: #### D GASTELUM #### [facility] ([facility]) [address] [place] [address] VIR PHENCYCLIDINE Negative Normal Negative [facility] Comment on above: Result Comment: Phen cyclidine screening cut off value = 25 ng/mL Performed By: #### D GASTELUM #### [facility] ([facility]) [address] [place] [address] VIR MAGNESIUMon 02-14-2025 Magnesium [Mass/Vol] 1.9 mg/dL Normal 1.8-2.6 [facility] Comment on above: Performed By: #### M G #### [facility] ([facility]) [address] [place] [address] VIR Magnesiumon 02-14-2025 Interpretation and review of laboratory results Normal [facility] Magnesium [Mass/Vol] 1.9 mg/dL 1.8 - 2 .6 mg/dL [facility] CBC AND AUTO DIFFon 12-15-19 25 ABSOLUTE BASOPHIL 0.0 X10E9/L Normal 0.0-0.2 [facility] Comment on above: Performed By: #### C KARISSA LUZ, 1987-12, 55865-2, THYR, 63838-4 #### [facility] ([id number]) [address], [address] [place] [address] ABSOLUTE NEUTROPHIL 3.8 X10E9/L Normal 1.5-6.6 [facility] Comment on above: Performed By: #### C KARISSA LUZ, 1987-12, 78195-1, THYR, 75657-3 #### [facility] ([id number]) [address], [address] [place] [address] Basophils/100 WBC (Bld) 0.6 % Normal [facility] Comment on above: Performed By: #### C KARISSA LUZ, 1987-12, , THYR, 24455-5 #### [facility] ([id number]) [address], [address] [place] [address] Eosinophils (Bld) [#/Vol] 0.0 10*3/uL Normal 0.0-0.4 [facility] Comment on above: Performed By: #### C BCA, CMP, 1987-12, , THYR, 42671-0 #### [facility] ([id number]) [address], [address] [place] [address] Eosinophils/100 WBC (Bld) 0.1 % Normal [facility] Comment on above: Performed By: #### C BCA, CMP, 1987-12, , THYR, 82929-1 #### [facility] ([id number]) [address] [place] [address] Erythrocyte distribution width (RBC) [Ratio] 13.9 % Normal 11.5-15.0 [facility] Comment on above: Performed By: #### C NATTY, [facility], 1987-12, , THYR, 89992-9 #### [facility] ([id number]) [address] [place] [address] Hematocrit (Bld) [Volume fraction] 37.5 % Normal 35-47 [facility] Comment on above: Performed By: #### C BCA, CMP, 1987-12, , THYR, 16335-0 #### [facility] ([id number]) [address] [address] [place] [address] Hemoglobin (Bld) [Mass/Vol] 12.3 g/dL Normal 11.7-15.5 [facility] Comment on above: Performed By: #### C BCA, CMP, 1987-12, , THYR, 41789-5 #### [facility] ([id number]) [address], [address] [place] [address] Lymphocytes (Bld) [#/Vol] 2.1 10*3/uL Normal 1.0-3.5 [facility] Comment on above: Performed By: #### C NATTY CMP, 1987-12, , THYR, 84983-3 #### [facility] ([id number]) [address], [facility] [address] [place] [address] Lymphocytes/100 WBC (Bld) 32.8 % Normal [facility] Comment on above: Performed By: #### C NATTY CMP, 1987-12, , THYR, 36594-4 #### [facility] ([id number]) [address] [place] [address] MCH (RBC) [Entitic mass] 30.9 pg Normal 27-34 [facility] Comment on above: Performed By: #### C NATTY CMP, 1987-12, , THYR, 41658-4 #### [facility] ([id number]) [address] [place] [address] MCHC (RBC) [Mass/Vol] 32.7 g/dL Normal 32-36 [facility] Comment on above: Performed By: #### C NATTY CMP, 1987-12, , THYR, 46291-8 #### [facility] ([id number]) [address] [place] [address] MCV (RBC) [Entitic vol] 94 fL Normal 80-100 [facility] Comment on above: Performed By: #### C NATTY CMP, 1987-12, , THYR, 42806-8 #### [facility] ([id number]) [address] [address] [place] [address] Monocytes (Bld) [#/Vol] 0.5 10*3/uL Normal 0-0.9 [facility] Comment on above: Performed By: #### C BCA, CMP, 1987-12, , THYR, 69291-0 #### [facility] ([id number]) [address], [address] [place] [address] Monocytes/100 WBC (Bld) 7.2 % Normal [facility] Comment on above: Performed By: #### C BCA, CMP, 1987-12, , THYR, 29807-5 #### [facility] ([id number]) [address], [address] [place] [address] Neutrophils/100 WBC (Bld) 59.3 % Normal [facility] Comment on above: Performed By: #### C BCA, CMP, 1987-12, , THYR, 20518-8 #### [facility] ([id number]) [address], [address] [place] [address] Platelet mean volume (Bld) [Entitic vol] 10.1 fL Normal 7-12 [facility] Comment on above: Performed By: #### C BCA, CMP, 1987-12, , THYR, 47327-2 #### [facility] ([id number]) [address], [address] [place] [address] Platelets (Bld) [#/Vol] 296 10*3/uL Normal 150-450 [facility] Comment on above: Performed By: #### C BCA, CMP, 1987-12, , THYR, 78502-7 #### [facility] ([id number]) [address], [address] [place] [address] RBC COUNT 3.98 X10E12/L Normal 3.80-5.20 [facility] Comment on above: Performed By: #### C BCA, CMP, 1987-12, , THYR, 23929-0 #### [facility] ([id number]) [address], [address] [place] [address] WBC (Bld) [#/Vol] 6.4 10*3/uL Normal 4.0-11.0 [facility] Comment on above: Performed By: #### C BCA, CMP, 1987-12, , THYR, 97658-2 #### [facility] ([id number]) [address], [address] [place] [address] COMPREHENSIVE METABOLIC PANE Henry 12-14-2024 Albumin [Mass/Vol] 4.1 g/dL Normal 3.2-5.3 [facility] Comment on above: Performed By: #### C BCA, CMP, 1987-12, , THYR, 27286-1 #### [facility] ([id number]) [address], [address] [place] [address] ALP [Catalytic activity/Vol] 65 U/L Normal 39-130 [facility] Comment on above: Performed By: #### C BCA, CMP, 1987-12, , THYR, 58429-2 #### [facility] ([id number]) [address], [address] [place] [address] ALT [Catalytic activity/Vol] 13 U/L Normal 0-31 [facility] Comment on above: Performed By: #### C BCA, CMP, 1987-12, , THYR, 56662-9 #### [facility] ([id number]) [address], [address] [place] [address] Anion gap [Moles/Vol] 9 mmol/L Normal 5-15 [facility] Comment on above: Performed By: #### C BCA, CMP, 1987-12, , THYR, 87719-3 #### [facility] ([id number]) [address], [address] [place] [address] AST [Catalytic activity/Vol] 22 U/L Normal 0-41 [facility] Comment on above: Performed By: #### C BCA, CMP, 1987-12, , THYR, 34695-0 #### [facility] ([id number]) [address], [address] [place] [address] Bilirubin [Mass/Vol] 0.3 mg/dL Normal 0.3-1.2 [facility] Comment on above: Performed By: #### C BCA, CMP, 1987-12, , THYR, 15707-1 #### [facility] ([id number]) [address], [address] [place] [address] Calcium [Mass/Vol] 9.0 mg/dL Normal 8.5-10.5 [facility] Comment on above: Performed By: #### C BCA, CMP, 1987-12, , THYR, 28208-1 #### [facility] ([id number]) [address], [address] [place] [address] Chloride [Moles/Vol] 105 mmol/L Normal 98-109 [facility] Comment on above: Performed By: #### C BCA, CMP, 1987-12, , THYR, 13423-4 #### [facility] ([id number]) [address], [address] [place] [address] CO2 [Moles/Vol] 25 mmol/L Normal 22-32 [facility] Comment on above: Performed By: #### C BCA, CMP, 1987-12, , THYR, 83712-8 #### [facility] ([id number]) [address], [address] [place] [address] Creatinine [Mass/Vol] 0.78 mg/dL Normal 0.40-1.00 [facility] Comment on above: Result Comment: METH OD TRACEABLE TO IDMS STANDARD Performed By: #### C BCA, CMP, 1987-12, , THYR, 86765-8 #### [facility] ([id number]) [address], [address] [place] [address] eGFR (CKD-EPI) NON-RACE DEPENDENT >90 Normal >59 [facility] Comment on above: Result Comment: Reported eGFR is based on the CKD-EPI 2020 equation that does not use a race coefficient. Performed By: #### C BCA, CMP, 1987-12, , THYR, 01205-5 #### [facility] ([id number]) [address], [address] [place] [address] Glucose [Mass/Vol] 74 mg/dL Normal 65-99 [facility] Comment on above: Performed By: #### C BCA, CMP, 1987-12, , THYR, 92099-2 #### [facility] ([id number]) [address], [address] [place] [address] Potassium [Moles/Vol] 4.4 mmol/L Normal 3.5-5.0 [facility] Comment on above: Performed By: #### C BCA, CMP, 1987-12, , THYR, 46542-4 #### [facility] ([id number]) [address] [place] [address] Protein [Mass/Vol] 7.1 g/dL Normal 6.0-8.0 [facility] Comment on above: Performed By: #### C BCA, CMP, 1987-12, , THYR, 15193-3 #### [facility] ([id number]) [address], [address] [place] [address] Sodium [Moles/Vol] 139 mmol/L Normal 134-146 [facility] Comment on above: Performed By: #### C BCA, CMP, 1987-12, , THYR, 36644-0 #### [facility] ([id number]) [address], [address] [place] [address] Urea nitrogen [Mass/Vol] 14 mg/dL Normal 5-23 [facility] Comment on above: Performed By: #### C BCA, CMP, 1987-12, 37514-0, THYR, 45989-3 #### [facility] ([id number]) [address], [address] [place] [address] CRP [Mass/Vol]on 12-14-2024 C REACTIVE PROTEIN 0.7 mg/dL Normal 0.000-0.744 [place] Comment on above: Performed By: #### C BCA, CMP, 1987-12, , THYR, 54918-5 #### [facility] ([id number]) [address] [place] [address] Lipid 1996 panelon Cholesterol [Mass/Vol] 220 mg/dL High 150-200 [facility] Comment on above: Performed By: #### Clarke BCA, CMP, 1987-12, , THYR, 54421-5 #### [facility] ([id number]) [address] [place] [address] Cholesterol in HDL [Mass/Vol] 80 mg/dL Normal >39 [facility] Comment on above: Result Comment: HDL <40 mg/dL - High Risk HDL > or = 40mg/dL- Desirable HDL >60 mg/dL - Negative Risk Performed By: #### C BCA, CMP, 1987-12, , THYR, 24421-6 #### [facility] ([id number]) [address], [address] [place] [address] Cholesterol in LDL [Mass/Vol] 122 mg/dL Normal <130 [facility] Comment on above: Result Comment: LDL <100 mg/dL - Desirable LDL >160 mg/dL - High Risk Performed By: #### C NATTY, CMP, 1987-12, , THYR, 18929-5 #### [facility] ([id number]) [address] [address] Cholesterol in VLDL [Mass/Vol] 18 mg/dL Normal 0-30 [facility] Comment on above: Performed By: #### C NATTY, CMP, 1987-12, , THYR, 25764-7 #### [facility] ([id number]) [address] [address] CHOLESTEROL:HDL 2.8 Normal 1.0-5.0 [facility] Comment on above: Performed By: #### C BCA, CMP, 1987-12, , THYR, 34670-5 #### [facility] ([id number]) [address] [address] Triglyceride [Mass/Vol] 92 mg/dL Normal 27-150 [facility] Comment on above: Performed By: #### C BCA, CMP, 1987-12, , THYR, 08203-0 #### [facility] ([id number]) [address] [place] [address] THYROID PROFILEon 12-14-2024 Free T4 [Mass/Vol] 0.80 ng/dL Normal 0.61-1.60 [facility] Comment on above: Performed By: #### C BCA, CMP, 1987-12, , THYR, 56442-4 #### [facility] ([id number]) [address] [place] [address] TSH 3.96 uIU/mL Normal 0.49-4.67 [facility] Comment on above: Performed By: #### C NATTY, [facility], 1987-12, 61920-1, THYR, 39523-0 #### [facility] ([id number]) [address] [place] [address], [address] [place] [address] Vitamin D+Metabolites [Mass/ Vol]on 12-14-2024 VITAMIN D 25 HYD TOT 76.6 ng/mL Normal 30-100 [facility] Comment on above: Result Comment: Vitamin D status 25 [place] Vitamin D Deficiency <20 ng/mL Insufficiency 20-29 ng/mL Sufficiency 30-100 ng/mL Toxicity >100 ng/mL NOTE: A pediatric reference range has not been established by the formal service waiter of this kit. The [place] [employer] recommends a Vitamin D level of = or >20ng/mL in infants and children. Performed By: #### C NATTY, [facility], 1987-12, 26979-5, THYR, 67822-3 #### [facility] ([id number]) [address] [place] [address], [address] [place] [address] PAP IG, APT HPV RFX 16/18,45 on 05-25-2024 HPV APTIMA Negative Negative [facility] e Comment on above: This nucleic acid am plification test detects fourteen high- risk HPV types (16,18,31,33,35,39,45,51,52,56,58,59,66,68) without differentiation. Performed at: - [address] [id number] Child Welfare Assistant: Evelny Marie MD, Phone: [phone] Performed at: = - [address] [id number] Child Welfare Assistant: Evelyn Marie MD, Phone: [phone] PAP IG (IMAGE GUIDED) Note . [facility] Comment on above: TESTS RESULT FLAG UN ITS REF RANGE LAB Clinician Provided Cytology Information Source.............Cervix;Endocervix No. of containers..01 ThinPrep Vial DIAGNOSIS: 01 NEGATIVE FOR INTRAEPITHELIAL LESION OR MALIGNANCY. FUNGAL ORGANISMS MORPHOLOGICALLY CONSISTENT WITH MIKE SPECIES ARE PRESENT. THIS SPECIMEN WAS RESCREENED PART OF OUR ANIMAL RIDE MANAGER PROGRAM. Specimen adequacy: 01 Satisfactory for evaluation. Endocervical and/or squamous metaplastic cells (endocervical component) are present. Performed by: Marin Lee, Employment Advisor ([facility]) QC reviewed by: Susanna Espinal, Employment Advisor ([facility]) . 01 Note: Note 01 The Pap smear is a screening test designed to aid in the detection of premalignant and malignant conditions of the uterine cervix. It is not a diagnostic procedure and should not be used as the sole means of detecting cervical cancer. Both false-positive and false-negative reports do occur. Test Methodology: Note 01 This liquid based ThinPrep(R) pap test was screened with the use of an image guided system. HPV Genotype Reflex Note 01 Criteria not met, HPV Genotype not performed. FLAG LEGEND: L-Low Normal,H-High Normal,LL-Alert Low,HH-Alert High <-Panic Low,>-Panic High,A-Abnormal,AA-Critical Abnormal Performed at: 01 [facility] [address] [place] [address] Evelyn Marie MD, BRUSH-SPATULA CERVIX ENDOCERVIX [facility] POCT urinalysis dipstick onl yon 04-27-2024 Appearance (U) Clear [facility] External Poct Urine Bilirubin 1+ [facility] External Poct Urine Blood Trace [facility] External Poct Urine Character No Odor [facility] External Poct Urine Color [place] [facility] External Poct Urine Glucose Trace [facility] External Poct Urine Ketones Trace [facility] External Poct Urine Leukocyte Esterase 3+ [facility] External Poct Urine Nitrite Positive [facility] External Poct Urine Ph 5.0 [facility] External Poct Urine Protein 2+ [facility] External Poct Urine Specific [place] 1.025 [facility] External Poct Urine Urobilinogen 2.0 [facility] Interpretation and review of laboratory results Abnormal [facility] CRP [Mass/Vol]on 04-20-2024 C REACTIVE PROTEIN 1.4 mg/dL High 0.000-0.744 [place] Comment on above: Performed By: #### 8 2477, 1987-12, 98165-7 #### [facility] ([id number]) [address], [address] [place] [address] ESR Photometric method (Bld) [Velocity]on 04-20-2024 ESR, ERYTHROCYTE SEDIMENTATION RATE <1 Normal 0-20 [facility] Comment on above: Result Comment: (LES S THAN) Performed By: #### 8 2477-, 1987-12, #### [facility] ([id number]) [address], [address] [place] [address] Nuclear Ab IA Ql (S)on 04-20 HIREN Screen w/reflex Negative Normal NEG [place] Comment on above: Result Comment: Testing performed using multiplex flow immunoassay. Eleven different antigens associated with systemic autoimmune diseases (dsDNA,Sm,Sm/CLAIMS SUPPORT SPECIALIST,CLAIMS SUPPORT SPECIALIST,Chromatin, SSA,SSB,Indy-1,Scl70,Ribo P,Centromere B) are included in this screening test. Performed By: #### 8 2477-, 1987-12, 87420-7 #### [facility] ([id number]) [address], [address] [place] [address] Basic Metabolic Panelon Anion gap [Moles/Vol] 12 mmol/L 5 - 15 mmol/L [facility] Calcium [Mass/Vol] 9.7 mg/dL 8.5 - 10. 5 mg/dL [facility] Chloride [Moles/Vol] 96 mmol/L Low 98 - 10 9 mmol/L [facility] CO2 [Moles/Vol] 32 mmol/L 22 - 32 mmol/L [facility] Creatinine [Mass/Vol] 0.82 mg/dL 0.40 - 1.00 mg/dL [facility] Comment on above: METHOD TRACEABLE TO IDNC STANDARD eGFR (CKD-EPI)non-race dependent - PINF [facility] Comment on above: Reported eGFR is based on the CKD-EPI 2020 equation that does not use a race coefficient. Glucose [Mass/Vol] 99 mg/dL 65 - 99 mg/dL [facility] Interpretation and review of laboratory results Abnormal [facility] Potassium [Moles/Vol] 3.1 mmol/L Low 3.5 - 5.0 mmol/L [facility] Sodium [Moles/Vol] 140 mmol/L 134 - 146 mmol/L [facility] Urea nitrogen [Mass/Vol] 13 mg/dL 5 - 23 mg/dL [facility] PAP ACOG PANEL 2: 19 to 29on 11-13-2022 . . Normal [facility] Comment on above: Performed By: #### [id number] #### [facility] [address] [address] [address] Jerman Guallpa Age Gdln ACOG Testing 19- Normal [facility] Comment on above: Performed By: #### 4 [id number] #### [facility] [address] [address] [address] Jerman Guallpa DIAGNOSIS: Comment Abnormal [facility] Comment on above: Result Comment: EPIT HELIAL CELL ABNORMALITY. LOW GRADE SQUAMOUS INTRAEPITHELIAL LESION (LSIL). FUNGAL ORGANISMS MORPHOLOGICALLY CONSISTENT WITH MIKE SPECIES ARE PRESENT. Performed By: #### 4 [id number] #### [facility] [address] [address] [address] Jerman Guallpa Electronically signed by: Comment Normal [facility] Comment on above: Result Comment: June Pablo MD, Pathologist Performed By: #### 4 [id number] #### [facility] [address] [place] [address] Dr. Jerman Guallpa Methodology: Comment Normal [facility] Comment on above: Result Comment: This liquid based ThinPrep(R) pap test was screened with the use of an image guided system. Performed By: #### 4 [id number] #### [facility] [address] [place] [address] Dr. Jerman Guallpa Note: Comment Normal [facility] Comment on above: Result Comment: The Pap smear is a screening test designed to aid in the detection of premalignant and malignant conditions of the uterine cervix. It is not a diagnostic procedure and should not be used as the sole means of detecting cervical cancer. Both false-positive and false-negative reports do occur. . Performed By: #### 4 [id number] #### [facility] [address] [place] [address] Dr. Jerman Guallpa Pathologist Provided ICD10 Comment Normal [facility] Comment on above: Result Comment: R87. 612, R87.5 Performed By: #### 4 [id number] #### [facility] [address] [place] [address] Dr. Jerman Guallpa Performed by: Comment Normal [facility] Comment on above: Result Comment: Alma Miller, Employment Advisor (ASCP) Performed By: #### 4 [id number] #### [facility] [address] [place] [address] Dr. Jerman Guallpa Recommendation: Comment Abnormal [facility] Comment on above: Result Comment: Sugg est follow up as clinically appropriate. Performed By: #### 4 [id number] #### [facility] [address] [place] [address] Dr. Jerman Guallpa Reflex Criteria: Comment Normal [facility] Comment on above: Result Comment: The HPV DNA reflex criteria were not met with this specimen result therefore, no HPV testing was performed. . Performed By: #### 4 [id number] #### [facility] [address] [place] [address] Dr. Jerman Guallpa Specimen adequacy: Comment Normal [facility] Comment on above: Result Comment: Sati sfactory for evaluation. Endocervical and/or squamous metaplastic cells (endocervical component) are present. Performed By: #### 4 [id number] #### [facility] [address] [place] [address] Dr. Jerman Guallpa PAP ACOG PANEL 2: 21 to 29on 06-04-2022 . . Normal [facility] Comment on above: Performed By: #### 4 [id number] #### [facility] [address] [place] [address] Dr. Jerman Guallpa Age Gdln ACOG Testing 19- Normal [facility] Comment on above: Performed By: #### 4 [id number] #### [facility] [address] [place] [address] Dr. Jerman Guallpa DIAGNOSIS: Comment Abnormal [facility] Comment on above: Result Comment: EPIT HELIAL CELL ABNORMALITY. ATYPICAL SQUAMOUS CELLS OF UNDETERMINED SIGNIFICANCE (ASC-US). FUNGAL ORGANISMS MORPHOLOGICALLY CONSISTENT WITH MIKE SPECIES ARE PRESENT. Performed By: #### 4 [id number] #### [facility] [address] [place] [address] Dr. Jerman Guallpa Electronically signed by: Comment Normal [facility] Comment on above: Result Comment: Fernanda Rodriguez MD, Pathologist Performed By: #### 4 [id number] #### [facility] [address] [place] [address] Dr. Jerman Guallpa HPV Aptima Negative Normal Negative [facility] Comment on above: Result Comment: This nucleic acid amplification test detects fourteen high-risk HPV types (16,18,31,33,35,39,45,51,52,56,58,59,66,68) without differentiation. Performed By: #### 4 [id number] #### [facility] [address] [place] [address] Dr. Jerman Guallpa Methodology: Comment Normal [facility] Comment on above: Result Comment: This liquid based ThinPrep(R) pap test was screened with the use of an image guided system. Performed By: #### 4 [id number] #### [facility] [address] [place] [address] Dr. Jerman Guallpa Note: Comment Normal [facility] Comment on above: Result Comment: The Pap smear is a screening test designed to aid in the detection of premalignant and malignant conditions of the uterine cervix. It is not a diagnostic procedure and should not be used as the sole means of detecting cervical cancer. Both false-positive and false-negative reports do occur. . Performed By: #### 4 [id number] #### [facility] [address] [place] [address] Dr. Jerman Guallpa Pathologist Provided ICD10 Comment [facility] Comment on above: Result Comment: R87. 610, R87.5 Performed By: #### 4 [id number] #### [facility] [address] [place] [address] Dr. Jerman Guallpa Performed by: Comment Normal [facility] Comment on above: Result Comment: Jodi Parikh, Employment Advisor Performed By: #### 4 [id number] #### [facility] [address] [place] [address] Dr. Jerman Guallpa Recommendation: Comment Abnormal [facility] Comment on above: Result Comment: Sugg est follow up as clinically appropriate. Performed By: #### 4 [id number] #### [facility] [address] [place] [address] Dr. Jerman Guallpa Reflex Criteria: Comment Normal [facility] Comment on above: Result Comment: See below for HPV testing results. . Performed By: #### 4 [id number] #### [facility] [address] [place] [address] Dr. Jerman Guallpa Specimen adequacy: Comment Normal [facility] Comment on above: Result Comment: Sati sfactory for evaluation. Endocervical and/or squamous metaplastic cells (endocervical component) are present. Performed By: #### 4 [id number] #### [facility] [address] [place] [address] Dr. Jerman Guallpa PAP ACOG PANEL 2: 21 to 29on 01-14-2022 . . Normal [facility] Comment on above: Performed By: #### 4 [id number] #### [facility] [address] [place] [address] Dr. Jerman Guallpa Age Gdln ACOG Testing 21-29 Normal [facility] Comment on above: Performed By: #### 4 [id number] #### [facility] [address] [place] [address] Dr. Jerman Guallpa DIAGNOSIS: Comment Abnormal [facility] Comment on above: Result Comment: EPIT HELIAL CELL ABNORMALITY. LOW GRADE SQUAMOUS INTRAEPITHELIAL LESION (LSIL). FUNGAL ORGANISMS MORPHOLOGICALLY CONSISTENT WITH MIKE SPECIES ARE PRESENT. Performed By: #### 4 [id number] #### [facility] [address] [place] [address] Dr. Jerman Guallpa Electronically signed by: Comment Normal [facility] Comment on above: Result Comment: Mary Marie MD, Pathologist Performed By: #### 4 [id number] #### [facility] [address] [place] [address] Dr. Jerman Guallpa Methodology: Comment Normal [facility] Comment on above: Result Comment: This liquid based ThinPrep(R) pap test was screened with the use of an image guided system. Performed By: #### 4 [id number] #### [facility] [address] [place] [address] Dr. Jerman Guallpa Note: Comment Normal [facility] Comment on above: Result Comment: The Pap smear is a screening test designed to aid in the detection of premalignant and malignant conditions of the uterine cervix. It is not a diagnostic procedure and should not be used as the sole means of detecting cervical cancer. Both false-positive and false-negative reports do occur. . Performed By: #### 4 [id number] #### [facility] [address] [place] [address] Dr. Jerman Guallpa Pathologist Provided ICD10 Comment Normal [facility] Comment on above: Result Comment: R87. 612, R87.5 Performed By: #### 4 [id number] #### [facility] [address] [address] [address] Jerman Guallpa Performed by: Comment Normal [facility] Comment on above: Result Comment: Skye Espinal, Employment Advisor (ASCP) Performed By: #### 4 [id number] #### [facility] [address] [address] [address] Jerman Guallpa Recommendation: Comment Abnormal [facility] Comment on above: Result Comment: Sugg est follow up as clinically appropriate. Performed By: #### 4 [id number] #### [facility] [address] [address] [address] Jerman Guallpa Reflex Criteria: Comment Normal [facility] Comment on above: Result Comment: The HPV DNA reflex criteria were not met with this specimen result therefore, no HPV testing was performed. . Performed By: #### 4 [id number] #### [facility] [address] [address] [address] Jerman Guallpa Specimen adequacy: Comment Normal [facility] Comment on above: Result Comment: Sati sfactory for evaluation. Endocervical and/or squamous metaplastic cells (endocervical component) are present. Performed By: #### 4 [id number] #### [facility] [address] [address] [address] Jerman Guallpa VL DUP LOWER EXTREMITY VENOU S RIGHTon 11-05-2020 [facility] Vascular Lower Extremities DVT Study Procedure Patient Name PABLO OSORIO Date of Study 11/05/2020 R Date of 2000 Gender Female Age 20 year(s) Race Room Number Corporate ID # [id number] Patient MR # [id number] Metal Bonding Worker Jennie Palumbo RVBarbra Interpreting Physician Osiris Scott MD Referring Referring Physician Nurse Practitioner Additional Comments Exam ordered by Harshal Roldan CNP Procedure Type of Study: Veins: Lower Extremities DVT Study, Venous Scan Lower Right. Patient Status:Out Patient. Technical Quality:Adequate visualization. Comments:INDICATIONS: Right leg edema (R22.41) Right calf pain (M79.661) Conclusions Summary No evidence of superficial or deep venous thrombosis in the right lower extremity. Signature - - - - Findings: Right Impression: Common femoral, femoral, deep femoral, popliteal, tibials, peroneal, and saphenous veins were evaluated. All veins were compressible and with normal doppler responses. Velocities are measured in cm/s ; Diameters are measured in cm Right Lower Extremities DVT Study Measurements Right 2D Measurements + +---- ------+ -+ + !Location !Visualized!Compressi bility!Thrombosis! + +---- ------+ -+ + !Common Femoral !Yes !Yes !None ! + +---- ------+ -+ + !Prox Femoral !Yes !Yes !None ! + +---- ------+ -+ + !Mid Femoral !Yes !Yes !None ! + +---- ------+ -+ + !Dist Femoral !Yes !Yes !None ! + +---- ------+ -+ + !Deep Femoral !Yes !Yes !None ! + +---- ------+ -+ + !Popliteal !Yes !Yes !None ! + +---- ------+ -+ + !Sapheno Femoral Junction !Yes !Yes !None ! + +---- ------+ -+ + !PTV !Yes !Yes !None ! + +---- ------+ -+ + !Peroneal !Yes !Yes !None ! + +---- ------+ -+ + !Gastroc !Yes !Yes !None ! + +---- ------+ -+ + !GSV Thigh !Yes !Yes !None ! + +---- ------+ -+ + !GSV Knee !Yes !Yes !None ! + +---- ------+ -+ + !GSV Ankle !Yes !Yes !None ! + +---- ------+ -+ + !SSV !Yes !Yes !None ! + +---- ------+ -+ + Right Doppler Measurements + -------+------+------ + + !Location !Signal!Reflux!Reflux (msec) ! + -------+------+------ + + !Common Femoral !Phasic! ! ! + -------+------+------ + + !Prox Femoral !Phasic! ! ! + -------+------+------ + + !Popliteal !Phasic! ! ! + -------+------+------ + + [employer] Phone: Theo Shannon Incoming Cardio Results From [facility]/Ge - 11/05/2020 4:31 PM EST [facility] Vascular Lower Extremities DVT Study Procedure Patient Name PABLO OSORIO Date of Study 11/05/2020 R Date of 2000 Gender Female Age 20 year(s) Race Room Number Corporate ID # [id number] Patient MR # [id number] Metal Bonding Worker Jennie Palumbo RVT Interpreting Physician Osiris Scott [...] thrombosis in the right lower extremity. Signature - - - - Findings: Right Impression: Common femoral, femoral, deep femoral, popliteal, tibials, peroneal, and saphenous veins were evaluated. All veins were compressible and with normal doppler responses. Velocities are measured in cm/s ; Diameters are measured in cm Right Lower Extremities DVT Study Measurements Right 2D Measurements + +---- ------+ -+ + !Location !Visualized!Compressi bility!Thrombosis! + +---- ------+ -+ + !Common Femoral !Yes !Yes !None ! + +---- ------+ -+ + !Prox Femoral !Yes !Yes !None ! + +---- ------+ -+ + !Mid Femoral !Yes !Yes !None ! + +---- ------+ -+ + !Dist Femoral !Yes !Yes !None ! + +---- ------+ -+ + !Deep Femoral !Yes !Yes !None ! + +---- ------+ -+ + !Popliteal !Yes !Yes !None ! + +---- ------+ -+ + !Sapheno Femoral Junction !Yes !Yes !None ! + +---- ------+ -+ + !PTV !Yes !Yes !None ! + +---- ------+ -+ + !Peroneal !Yes !Yes !None ! + +---- ------+ -+ + !Gastroc !Yes !Yes !None ! + +---- ------+ -+ + !GSV Thigh !Yes !Yes !None ! + +---- ------+ -+ + !GSV Knee !Yes !Yes !None ! + +---- ------+ -+ + !GSV Ankle !Yes !Yes !None ! + +---- ------+ -+ + !SSV !Yes !Yes !None ! + +---- ------+ -+ + Right Doppler Measurements + -------+------+------ + + !Location !Signal!Reflux!Reflux (msec) ! + -------+------+------ + + !Common Femoral !Phasic! ! ! + -------+------+------ + + !Prox Femoral !Phasic! ! ! + -------+------+------ + + !Popliteal !Phasic! ! ! + -------+------+------ + + [employer] Work Phone: Vital Signs Date Time Vital Sign Value Performing Clinician Facility 04-11-2025 14:47-0400 Body height 165.1 cm Werner Moreira MD Work Phone: [facility] 04-11-2025 14:47-0400 Body mass index (BMI) [Ratio] 25.46 kg/m2 Werner Moreira MD Work Phone: [facility] 04-11-2025 14:47-0400 Body weight 69.4 kg Werner Moreira MD Work Phone: [facility] 04-11-2025 14:47-0400 Diastolic blood pressure 79 mm[Hg] Werner Moreira MD Work Phone: [facility] 04-11-2025 14:47-0400 Heart rate 87 /min Werner Moreira MD Work Phone: [facility] 04-11-2025 14:47-0400 SaO2% (BldA) [Mass fraction] 98 % Werner Moreira MD Work Phone: [facility] 04-11-2025 14:47-0400 Systolic blood pressure 122 mm[Hg] Werner Moreira MD Work Phone: [facility] 03-22-2025 11:01-0400 Body height 165.1 cm [facility] 2 [facility] 03-22-2025 11:01-0400 Body mass index (BMI) [Ratio] 26.63 kg/m2 [facility] 2 [facility] 03-22-2025 11:01-0400 Body weight 72.58 kg [facility] 2 [facility] 03-21-2025 23:06-0400 Body height 165.1 cm [facility] 2 [facility] 03-21-2025 23:06-0400 Body mass index (BMI) [Ratio] 26.63 kg/m2 [address] 03-21-2025 23:06-0400 Body weight 72.[address] 01-25-2025 15:42-0400 Body height 167 cm Adams Glover SUPERVISOR P[employer] HATCHERY[employer]MANAGER [employer]ER Work Phone: [facility] 01-25-2025 15:42-0400 Body mass index (BMI) [Ratio] 26.09 kg/m2 Adams Glover SUPERVISOR POULTRY HATCHERY-MANAGER [employer]IBER Work Phone: [facility] 01-25-2025 15:42-0400 Body temperature 97.7 [degF] Adams Glover SUPERVISOR POUL[employer] HATCHERY-MANAGER [employer]IBER Work Phone: [facility] 01-25-2025 15:42-0400 Body weight 72.76 kg Adams Glover SUPERVISOR POUL[employer] HATCHERY-MANAGER [employer]ER Work Phone: [facility] 01-25-2025 15:42-0400 Diastolic blood pressure 78 mm[Hg] Adams Glover SUPERVISOR POUL[employer] HATCHERY-MANAGER [employer]ER Work Phone: [facility] 01-25-2025 15:42-0400 Heart rate 99 /min Adams Glover SUPERVISOR POUL[employer] HATCHERY-MANAGER [employer]ER Work Phone: [facility] 01-25-2025 15:42-0400 SaO2% (BldA) [Mass fraction] 98 % Adams Glover SUPERVISOR POUL[employer] HATCHERY-MANAGER [employer]IBER Work Phone: [facility] 01-25-2025 15:42-0400 Systolic blood pressure 120 mm[Hg] Adams Glover SUPERVISOR POULTRY HATCHERY-MANAGER [employer]ER Work Phone: [facility] 12-20-2024 14:53-0400 Body height 167 cm Werner Moreira MD Work Phone: [facility] 12-20-2024 14:53-0400 Body mass index (BMI) [Ratio] 25.84 kg/m2 Werner Moreira MD Work Phone: [facility] 12-20-2024 14:53-0400 Body weight 72.08 kg Werner Moreira MD Work Phone: [facility] 12-20-2024 14:53-0400 Diastolic blood pressure 93 mm[Hg] Werner Moreira MD Work Phone: [facility] 12-20-2024 14:53-0400 Heart rate 91 /min Werner Moreira MD Work Phone: [facility] 12-20-2024 14:53-0400 SaO2% (BldA) [Mass fraction] 98 % Werner Moreira MD Work Phone: [facility] 12-20-2024 14:53-0400 Systolic blood pressure 146 mm[Hg] Werner Moreira MD Work Phone: [facility] 11-21-2024 16:09-0400 Body height 167 cm Adams Glover SUPERVISOR POUL[employer] HATCH[employer]MANAGER [employer]ER Work Phone: [facility] 11-21-2024 16:09-0400 Body mass index (BMI) [Ratio] 25.63 kg/m2 Adams Escobedojas SUPERVISOR POULTRY HATCHERY-MANAGER [employer]ER Work Phone: [facility] 11-21-2024 16:09-0400 Body temperature 98.29 [degF] Adams Glover SUPERVISOR P[employer] HATCH[employer]-MANAGER [employer] Work Phone: [facility] 11-21-2024 16:09-0400 Body weight 71.49 kg Adams Glover SUPERVISOR P[employer] HATCHERY[employer]MANAGER [employer]ER Work Phone: [facility] 11-21-2024 16:09-0400 Diastolic blood pressure 84 mm[Hg] Adams Glover SUPERVISOR POULTRY HATCHERY-MANAGER [employer]ER Work Phone: [facility] 11-21-2024 16:09-0400 Heart rate 86 /min Adams Glover SUPERVISOR POULTRY HATCHERY-MANAGER [employer]ER Work Phone: [facility] 11-21-2024 16:09-0400 SaO2% (BldA) [Mass fraction] 96 % Adams Glover SUPERVISOR POUL[employer] HATCHERY-MANAGER [employer]ER Work Phone: [facility] 11-21-2024 16:09-0400 Systolic blood pressure 146 mm[Hg] Adams Glover SUPERVISOR POULTRY HATCHERY-MANAGER [employer] Work Phone: [facility] 06-27-2024 15:47-0400 Body height 165.1 cm Adams Glover SUPERVISOR POUL[employer] HATCHERY-MANAGER [employer] Work Phone: [facility] 06-27-2024 15:47-0400 Body mass index (BMI) [Ratio] 24.56 kg/m2 Adams Glover SUPERVISOR P[employer] HATCHERY-MANAGER [employer]ER Work Phone: [facility] 06-27-2024 15:47-0400 Body temperature 98.01 [degF] Adams Glover SUPERVISOR POUL[employer] HATCHERY-MANAGER [employer]ER Work Phone: [facility] 06-27-2024 15:47-0400 Body weight 66.95 kg Adams Glover SUPERVISOR POUL[employer] HATCHERY-MANAGER [employer]ER Work Phone: [facility] 06-27-2024 15:47-0400 Diastolic blood pressure 74 mm[Hg] Adams Glover SUPERVISOR POULTRY HATCHERY-MANAGER [employer] Work Phone: [facility] 06-27-2024 15:47-0400 Heart rate 95 /min Adams Glover SUPERVISOR POULTRY HATCHERY-MANAGER [employer]ER Work Phone: [facility] 06-27-2024 15:47-0400 SaO2% (BldA) [Mass fraction] 98 % Adams Glover SUPERVISOR POULTRY HATCHERY-MANAGER [employer]ER Work Phone: [facility] 06-27-2024 15:47-0400 Systolic blood pressure 126 mm[Hg] Adams Glover SUPERVISOR POULTRY HATCHERY-MANAGER [employer]ER Work Phone: [facility] 05-18-2024 15:57-0400 Body height 162.6 cm [facility] Work Phone: [facility] 05-18-2024 15:57-0400 Body mass index (BMI) [Ratio] 25.75 kg/m2 [facility] Work Phone: [facility] 05-18-2024 15:57-0400 Body weight 68.04 kg Sherman Jonny DO Work Phone: [facility] 05-18-2024 15:57-0400 Diastolic blood pressure 76 mm[Hg] Sherman Jonny DO Work Phone: [facility] 05-18-2024 15:57-0400 Systolic blood pressure 120 mm[Hg] Sherman Jonny DO Work Phone: [facility] 04-27-2024 15:16-0400 Body mass index (BMI) [Ratio] 26.36 kg/m2 Adams Glover SUPERVISOR POULTRY HATCHERY-MANAGER FIBER Work Phone: [facility] 04-27-2024 15:16-0400 Body weight 71.85 kg Adams Glover SUPERVISOR POULTRY HATCHERY-MANAGER FIBER Work Phone: [facility] 04-27-2024 15:16-0400 SaO2% (BldA) [Mass fraction] 98 % Adams Glover SUPERVISOR POULTRY HATCHERY-MANAGER FIBER Work Phone: [facility] 03-23-2024 13:46-0400 Body height 165.1 cm Adams Glover SUPERVISOR POULTRY HATCHERY-MANAGER FIBER Work Phone: [facility] 03-23-2024 13:46-0400 Body mass index (BMI) [Ratio] 26.76 kg/m2 Adams Glover SUPERVISOR POULTRY HATCHERY-MANAGER FIBER Work Phone: [facility] 03-23-2024 13:46-0400 Body temperature 98.6 [degF] Adams Glover SUPERVISOR POULTRY HATCHERY-MANAGER FIBER Work Phone: [facility] 03-23-2024 13:46-0400 Body weight 72.94 kg Adams Glover SUPERVISOR POULTRY HATCHERY-MANAGER FIBER Work Phone: [facility] 03-23-2024 13:46-0400 Diastolic blood pressure 72 mm[Hg] Adamsbobby Glover SUPERVISOR POULTRY HATCHERY-MANAGER FIBER Work Phone: [facility] 03-23-2024 13:46-0400 Heart rate 86 /min Adams Glover SUPERVISOR POULTRY HATCHERY-MANAGER FIBER Work Phone: [facility] 03-23-2024 13:46-0400 Respiratory rate 18 /min Adams Glover SUPERVISOR POULTRY HATCHERY-MANAGER FIBER Work Phone: [facility] 03-23-2024 13:46-0400 SaO2% (BldA) [Mass fraction] 99 % dAams Glover SUPERVISOR POULTRY HATCHERY-MANAGER FIBER Work Phone: [facility] 03-23-2024 13:46-0400 Systolic blood pressure 116 mm[Hg] Adams Glover SUPERVISOR POULTRY HATCHERY-MANAGER FIBER Work Phone: [facility] 02-11-2024 14:51-0400 Body height 165.1 cm Adams Glover SUPERVISOR POULTRY HATCHERY-MANAGER FIBER Work Phone: [facility] 02-11-2024 14:51-0400 Body mass index (BMI) [Ratio] 26.26 kg/m2 Adams Glover SUPERVISOR POULTRY HATCHERY-MANAGER FIBER Work Phone: [facility] 02-11-2024 14:51-0400 Body temperature 98.2 [degF] Adams Glover SUPERVISOR POULTRY HATCHERY-MANAGER FIBER Work Phone: [facility] 02-11-2024 14:51-0400 Body weight 71.58 kg Adams Glover SUPERVISOR POULTRY HATCHERY-MANAGER FIBER Work Phone: [facility] 02-11-2024 14:51-0400 Diastolic blood pressure 60 mm[Hg] Adams Glover SUPERVISOR POULTRY HATCHERY-MANAGER FIBER Work Phone: [facility] 02-11-2024 14:51-0400 Heart rate 97 /min Adams Glover SUPERVISOR POULTRY HATCHERY-MANAGER FIBER Work Phone: [facility] 02-11-2024 14:51-0400 SaO2% (BldA) [Mass fraction] 97 % Adams Glover SUPERVISOR POULTRY HATCHERY-MANAGER FIBER Work Phone: [facility] [employer] [facility] 02-11-2024 14:51-0400 Systolic blood pressure 116 mm[Hg] Adams Glover SUPERVISOR POULTRY HATCHERY-MANAGER FIBER Work Phone: [facility] 11-04-2023 15:05-0500 Body height 165.1 cm Adams Glover SUPERVISOR POULTRY HATCHERY-MANAGER FIBER Work Phone: [facility] [employer] [facility] 11-04-2023 15:05-0500 Body mass index (BMI) [Ratio] 31.38 kg/m2 Adams Glover SUPERVISOR POULTRY HATCHERY-MANAGER FIBER Work Phone: [facility] 11-04-2023 15:05-0500 Body temperature 98.1 [degF] Adams Glover SUPERVISOR POULTRY HATCHERY-MANAGER FIBER Work Phone: [facility] [employer] [facility] 11-04-2023 15:05-0500 Body weight 85.55 kg Adams Glover SUPERVISOR POULTRY HATCHERY-MANAGER FIBER Work Phone: [facility] [employer] 11-04-2023 15:05-0500 Diastolic blood pressure 70 mm[Hg] Adams Glover SUPERVISOR POULTRY HATCHERY-MANAGER FIBER Work Phone: [facility] 11-04-2023 15:05-0500 Heart rate 85 /min Adams Glover SUPERVISOR POULTRY HATCHERY-MANAGER FIBER Work Phone: [facility] [employer] [facility] 11-04-2023 15:05-0500 SaO2% (BldA) [Mass fraction] 99 % Adams Glover SUPERVISOR POULTRY HATCHERY-MANAGER FIBER Work Phone: [facility] [employer] [facility] 11-04-2023 15:05-0500 Systolic blood pressure 122 mm[Hg] Adams Glover SUPERVISOR POULTRY HATCHERY-MANAGER FIBER Work Phone: [facility] Encounters Encounter Date Encounter Type Care Provider Facility Start: 05-22-2025 End: 05-22-2025 Damianboo flowsmook Fuller DO Work Phone: [facility] Start: 05-22-2025 End: 05-22-2025 Bamboo flowsheet Sherman Fuller DO Work Phone: [facility] Start: 05-04-2025 End: 05-04-2025 ambulatory YINA Nam CAYETANO [facility] Start: 04-14-2025 End: 04-14-2025 Orders Only Adams Glover SUPERVISOR POULTRY HATCHERY-MANAGER FIBER Work Phone: [facility] Start: 04-12-2025 End: 04-12-2025 Telephone encounter Nia Wilkinson [facility] Start: 04-11-2025 End: 04-11-2025 Office outpatient visit 25 minutes Werner Moreira MD Work Phone: [facility] Comment on above: ASMITA (obstructive sle ep apnea) (Primary Dx); Hypersomnia; Rhinitis medicamentosa Start: 04-11-2025 End: 04-11-2025 ambulatory WERNER MOREIRA [facility] Start: 04-07-2025 End: 04-07-2025 Telephone encounter Werner Moreira MD Work Phone: [facility] Start: 03-23-2025 End: 03-24-2025 Refill Adams Glover SUPERVISOR POULTRY HATCHERY-MANAGER FIBER Work Phone: [facility] Comment on above: Primary hypertension Start: 03-22-2025 ambulatory WERNER MOREIRA [facility] Start: 03-22-2025 ambulatory WERNER MOREIRA [facility] Start: 03-22-2025 End: 03-22-2025 Clinical Support Werner Moreira MD Work Phone: [facility] Comment on above: Excessive daytime sl eepiness Start: 03-21-2025 End: 03-22-2025 Orders Only Adams Glover SUPERVISOR POULTRY HATCHERY-MANAGER FIBER Work Phone: [facility] Comment on above: Excessive daytime sl eepiness Start: 03-07-2025 End: 03-07-2025 ambulatory [facility] Start: 02-17-2025 End: 02-17-2025 Refill Adams Glover SUPERVISOR POULTRY HATCHERY-MANAGER FIBER Work Phone: [facility] Comment on above: Primary hypertension Results Start: 02-16-2025 End: 02-16-2025 Orders Only Adams Glover SUPERVISOR POULTRY HATCHERY-MANAGER FIBER Work Phone: [facility] Start: 02-14-2025 End: 02-14-2025 Clinical Support Karen Gotti DO Work Phone: [facility] Comment on above: Restless leg Start: 02-07-2025 End: 02-07-2025 ambulatory [facility] Start: 01-25-2025 End: 01-25-2025 ambulatory [facility] Start: 01-25-2025 End: 01-25-2025 Office outpatient visit 15 minutes Adams Glover SUPERVISOR POULTRY HATCHERY-MANAGER FIBER Work Phone: [facility] Comment on above: Restless leg (Primar y Dx); Vertigo Start: 12-28-2024 End: 12-28-2024 ambulatory [facility] Start: 12-21-2024 End: 12-21-2024 Telephone encounter Werner Moreira MD [facility] Comment on above: Sleep Lab (PSG/MSLT) Start: 12-20-2024 End: 12-20-2024 ambulatory WERNER MOREIRA [facility] Start: 12-20-2024 End: 12-20-2024 Office outpatient new 45 minutes Werner Moreira MD Work Phone: [facility] Comment on above: Excessive daytime sl eepiness (Primary Dx); Generalized anxiety disorder; Attention deficit hyperactivity disorder (ADHD), combined type Start: 12-14-2024 End: 12-14-2024 ambulatory [facility] Start: 12-14-2024 Encounter for genera l adult medical examination without abnormal findings [facility] Start: 12-14-2024 End: 12-14-2024 Clinical Support [facility] SUPERVISOR POULTRY HATCHERY-MANAGER FIBER Work Phone: [facility] Comment on above: Wellness examination (Primary Dx); Chronic fatigue; Essential hypertension; Mixed hyperlipidemia; Anxiety with depression Start: 12-14-2024 End: 12-14-2024 Patient encounter status [facility] SUPERVISOR POULTRY HATCHERY-MANAGER FIBER Work Phone: [facility] Start: 12-07-2024 End: 12-07-2024 ambulatory [facility] Start: 11-21-2024 End: 11-21-2024 ambulatory [facility] Start: 11-21-2024 Encounter for genera l adult medical examination without abnormal findings [facility] Start: 11-21-2024 End: 11-21-2024 Patient encounter status [facility] SUPERVISOR POULTRY HATCHERY-MANAGER FIBER Work Phone: [facility] Start: 11-21-2024 End: 11-21-2024 Periodic preventive med est patient 18-39 yrs [facility] SUPERVISOR POULTRY HATCHERY-MANAGER FIBER Work Phone: [facility] Comment on above: Wellness examination (Primary Dx); Primary hypertension; Mixed hyperlipidemia; Anxiety with depression; Chronic fatigue Start: 10-27-2024 End: 10-27-2024 ambulatory [facility] Start: 10-19-2024 End: 10-19-2024 ambulatory [facility] Start: 09-26-2024 End: 09-26-2024 Orders Only [facility] SUPERVISOR POULTRY HATCHERY-MANAGER FIBER Work Phone: [facility] Start: 09-07-2024 End: 09-07-2024 Refill Millicent Randall CNA [facility] Start: 08-22-2024 End: 08-22-2024 ambulatory YINA MONTEIRO [facility] Start: 06-30-2024 End: 06-30-2024 ambulatory MANOHAR WARNER [facility] Start: 06-27-2024 End: 06-27-2024 ambulatory [facility] Start: 06-27-2024 End: 06-27-2024 Office outpatient visit 10 minutes Adams Glover SUPERVISOR POULTRY HATCHERY-MANAGER FIBER Work Phone: [facility] Comment on above: Anxiety with depress ion (Primary Dx); Obesity (BMI 30-39.9); Mixed hyperlipidemia; Primary hypertension; Sleep disturbance; Constipation, unspecified constipation type Start: 06-27-2024 End: 06-27-2024 Refill Adams Glover SUPERVISOR POULTRY HATCHERY-MANAGER FIBER Work Phone: [facility] Start: 06-13-2024 End: 06-14-2024 Refill Adams Glover SUPERVISOR POULTRY HATCHERY-MANAGER FIBER Work Phone: [facility] Start: 05-30-2024 End: 05-30-2024 Orders Only Adams Glover SUPERVISOR POULTRY HATCHERY-MANAGER FIBER Work Phone: [facility] Start: 05-25-2024 End: 05-25-2024 Telephone encounter Nicolasa Bereket [facility] Start: 05-18-2024 End: 05-18-2024 ambulatory SHERMAN JONNY Not Available Start: 05-18-2024 End: 05-18-2024 Office outpatient visit 15 minutes Sherman Jonny DO Work Phone: [facility] Comment on above: 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 Start: 05-18-2024 End: 05-18-2024 Bamboo flowsheet Sherman Jonny DO Work Phone: [facility] Start: 05-18-2024 End: 05-25-2024 Bamboo flowsheet Sherman Jonny DO Work Phone: [facility] Start: 05-18-2024 End: 05-25-2024 Clinisync Result Encounter Sherman Fuller DO Work Phone: [facility] Unsolicited Start: 05-10-2024 End: 05-10-2024 Refill Adams Glover SUPERVISOR POULTRY HATCHERY-MANAGER FIBER Work Phone: [facility] Start: 04-27-2024 End: 04-27-2024 Office outpatient visit 10 minutes Adams Glover SUPERVISOR POULTRY HATCHERY-MANAGER FIBER Work Phone: [facility] Comment on above: Dysuria (Primary Dx) ; Acute cystitis with hematuria Start: 04-27-2024 End: 04-27-2024 ambulatory [facility] Start: 04-27-2024 End: 04-27-2024 Telephone encounter Millicent Randall CNA [facility] Comment on above: Results Start: 04-20-2024 End: 04-20-2024 ambulatory [facility] Start: 04-20-2024 End: 04-20-2024 Clinical Support Adams Glover SUPERVISOR POULTRY HATCHERY-MANAGER FIBER Work Phone: [facility] Comment on above: Hives (Primary Dx); Chronic fatigue Start: 03-23-2024 End: 03-23-2024 Office outpatient visit 10 minutes Adams Glover SUPERVISOR POULTRY HATCHERY-MANAGER FIBER Work Phone: [facility] Comment on above: Primary hypertension (Primary Dx); Obesity (BMI 30-39.9); Mixed hyperlipidemia; Chronic fatigue; Hives Start: 03-10-2024 End: 03-10-2024 Refill Adams Glover SUPERVISOR POULTRY HATCHERY-MANAGER FIBER Work Phone: [facility] Comment on above: Primary hypertension ; Encounter for weight management; Obesity (BMI 30-39.9); Mixed hyperlipidemia Start: 03-03-2024 End: 03-04-2024 Refill Adams Glover SUPERVISOR POULTRY HATCHERY-MANAGER FIBER Work Phone: [facility] Comment on above: Primary hypertension ; Encounter for weight management; Obesity (BMI 30-39.9); Mixed hyperlipidemia Start: 02-11-2024 End: 02-11-2024 Office outpatient visit 10 minutes Adams Glover SUPERVISOR POULTRY HATCHERY-MANAGER FIBER Work Phone: [facility] Comment on above: Primary hypertension (Primary Dx); Anxiety with depression; Medication management; Hypokalemia; Constipation, unspecified constipation type; Encounter for weight management; Nausea Start: 02-10-2024 End: 02-10-2024 Orders Only Adams Glover SUPERVISOR POULTRY HATCHERY-MANAGER FIBER Work Phone: [facility] Start: 01-29-2024 End: 01-29-2024 Orders Only Adams Glover SUPERVISOR POULTRY HATCHERY-MANAGER FIBER Work Phone: [facility] Start: 01-26-2024 End: 01-26-2024 Refill Adams Glover SUPERVISOR POULTRY HATCHERY-MANAGER FIBER Work Phone: [facility] Start: 01-21-2024 End: 01-21-2024 Refill [facility] Comment on above: Primary hypertension ; Encounter for weight management; Obesity (BMI 30-39.9); Mixed hyperlipidemia Start: 01-13-2024 End: 01-13-2024 Orders Only Adams Glover SUPERVISOR POULTRY HATCHERY-MANAGER FIBER [facility] Comment on above: Hypokalemia (Primary Dx) Start: 12-29-2023 End: 12-29-2023 Orders Only Arnaud Webber MD [facility] Start: 12-23-2023 End: 12-23-2023 Orders Only Adams Glover SUPERVISOR POULTRY HATCHERY-MANAGER FIBER Work Phone: [facility] Start: 12-22-2023 End: 12-23-2023 Telephone encounter Cierra Topete [facility] Start: 12-20-2023 End: 12-20-2023 Orders Only Adams Glover SUPERVISOR POULTRY HATCHERY-MANAGER FIBER Work Phone: [facility] Comment on above: Primary hypertension ; Encounter for weight management; Obesity (BMI 30-39.9); Mixed hyperlipidemia Start: 12-18-2023 End: 12-18-2023 ambulatory ADAMS GLOVER [facility] Start: 12-18-2023 End: 12-18-2023 Clinical Support Adams Glover SUPERVISOR POULTRY HATCHERY-MANAGER FIBER Work Phone: [facility] Comment on above: Nausea (Primary Dx) Start: 12-15-2023 End: 12-15-2023 Orders Only Adams Esa SUPERVISOR POULTRY HATCHERY-MANAGER FIBER Work Phone: [facility] Comment on above: Hypokalemia (Primary Dx); Nausea Start: 12-14-2023 End: 12-14-2023 Refill Nicolasa Cuba [employer] [facility] Comment on above: Nausea (Primary Dx) Primary hypertension (Primary Dx); Encounter for weight management; Obesity (BMI 30-39.9); Mixed hyperlipidemia Start: 12-02-2023 Orders Only Adams Roja s SUPERVISOR POULTRY HATCHERY-MANAGER FIBER Work Phone: [facility] Comment on above: Medication Problem Start: 11-26-2023 Orders Only Adams Evi medel SUPERVISOR POULTRY HATCHERY-MANAGER FIBER Work Phone: [facility] Comment on above: Mixed hyperlipidemia (Primary Dx); Encounter for weight management; Obesity (BMI 30-39.9); Primary hypertension Start: 11-06-2023 Orders Only Octavia hamilton SUPERVISOR POULTRY HATCHERY-MANAGER FIBER Work Phone: [facility] Start: 11-05-2023 Orders Only Adams medel SUPERVISOR POULTRY HATCHERY-MANAGER FIBER Work Phone: [facility] Start: 11-04-2023 End: 11-04-2023 Office outpatient visit 10 minutes Adams Glover SUPERVISOR POULTRY HATCHERY-MANAGER FIBER Work Phone: [facility] Comment on above: Primary hypertension (Primary Dx); Hypokalemia; Encounter for weight management; Obesity (BMI 30-39.9) Start: 09-22-2023 End: 09-22-2023 ambulatory SHERMAN FULLER Not Available Start: 09-17-2023 Orders Only Adams medel SUPERVISOR POULTRY HATCHERY-MANAGER FIBER Work Phone: [facility] Comment on above: Diarrhea Start: 09-15-2023 Telephone encounter Nicolasa Cuba HERMAN [facility] Start: 09-14-2023 Orders Only Adams medel SUPERVISOR POULTRY HATCHERY-MANAGER FIBER Work Phone: [facility] Start: 09-02-2023 Orders Only Manohar Warner MD Work Phone: [facility] Start: 11-03-2022 End: 11-03-[address] DALY BERNSTEIN . Facility:[facility] Start: 05-28-2022 Encounter for cervic al smear to confirm findings of recent normal smear following initial abnormal smear DR DALY BERNSTEIN . [facility] Start: 05-26-2022 End: 05-26-[address] DALY BERNSTEIN . Facility:[facility] Start: 05-26-2022 End: 05-26-2022 Encounter for cervical smear to confirm findings of recent normal smear following initial abnormal smear DR DALY BERNSTEIN . Facility:[facility] Start: 01-08-2022 End: 01-08-[address] DALY BERNSTEIN . Facility:[facility] Start: 11-05-2020 End: 11-08-2020 [facility] Start: 11-05-2020 End: 11-07-2020 Subsequent hospital visit by physician [facility] Comment on above: Pain of right lower leg Procedures Date Procedure Procedure Detail Performing Clinician Start: 05-04-2025 Follow-up visit Follow-up YINA MONTEIRO Start: 02-14-2025 Assay of magnesium Jaswinder Glover SUPERVISOR POULTRY HATCHERY-MANAGER FIBER Work Phone: Start: 11-21-2024 Adult depression screening assessment Adams Glover SUPERVISOR POULTRY HATCHERY-MANAGER FIBER Work Phone: Start: 08-22-2024 Adult depression screening assessment Millicent Randall [employer] Start: 06-27-2024 Follow-up visit Follow-up MUSA GLOVER Start: 06-27-2024 Adult depression screening assessment Adams Glover SUPERVISOR POULTRY HATCHERY-MANAGER FIBER Work Phone: Start: 05-18-2024 PAP IG, APT HPV RFX 16/18,45 Sherman Jonny DO Work Phone: Start: 04-27-2024 Urnls dip stick/tabl et rgnt non-auto w/o micrscp Adams Glover SUPERVISOR POULTRY HATCHERY-MANAGER FIBER Work Phone: Start: 07-02-2023 Adult depression screening assessment Manohar Warner MD Work Phone: Start: 11-05-2020 Dup-scan xtr veins unilateral/limited study Harshal Jamar Work Phone: Plan of Treatment Date Care Activity Detail Author Start: 03-21-2034 DTaP,Tdap and Td Vaccines (8 - Td or Tdap) DTaP,Tdap and Td Vaccines (8 - Td or Tdap) [facility] Start: 04-11-2026 Adult BMI Screening Adult BMI Screen ing [facility] Start: 04-11-2026 Tobacco Screening Tobacco Screening [facility] Start: 03-22-2026 Adult BMI Screening Adult BMI Screen ing [facility] Start: 03-21-2026 Adult BMI Screening Adult BMI Screen ing [facility] Start: 02-16-2026 Tobacco Screening Tobacco Screening [facility] Start: 01-26-2026 Tobacco Screening Tobacco Screening [facility] Start: 01-25-2026 Adult BMI Screening Adult BMI Screen ing [facility] Start: 01-25-2026 Tobacco Screening Tobacco Screening [facility] Start: 12-20-2025 Adult BMI Screening Adult BMI Screen ing [facility] Start: 12-20-2025 Tobacco Screening Tobacco Screening [facility] Start: 11-21-2025 Adult BMI Screening Adult BMI Screen ing [facility] Start: 11-21-2025 Depression Screening Depression Scre ening [facility] Start: 11-21-2025 Tobacco Screening Tobacco Screening [facility] Start: 08-22-2025 Depression Screening Depression Scre ening [facility] Start: 07-19-2025 End: 07-19-2025 Telemedicine consultation with patient 07/19/2025 3:00 PM EST Telemedicine [facility] [address] [place] [phone] Werner Moreira MD [address] [place] [address] [facility] Start: 06-30-2025 Tobacco Screening Tobacco Screening [facility] Start: 06-27-2025 Adult BMI Screening Adult BMI Screen ing [facility] Start: 06-27-2025 Depression Screening Depression Scre ening [facility] Start: 06-27-2025 Tobacco Screening Tobacco Screening [facility] Start: 05-22-2025 End: 05-22-2025 Patient encounter procedure [facility] Comment on above: Arrived Start: 05-01-2025 Influenza vaccination Influenza Vacc ine (#1) [facility] Start: 04-27-2025 Adult BMI Screening Adult BMI Screen ing [facility] Start: 04-27-2025 Tobacco Screening Tobacco Screening [facility] Start: 04-24-2025 End: 04-24-2025 Telemedicine consultation with patient 04/24/2025 4:00 PM EDT Telemedicine [facility] [address] [place] [address] [address] [place] [address] Karen Gotti, [address] [facility] [place] [address] [facility] Start: 04-11-2025 End: 04-11-2025 Patient encounter procedure 04/11/2025 2:45 PM EDT Office Visit [facility] [address] [place] [phone] Werner Moreira MD [address] [place] [address] [facility] Start: 03-29-2025 End: 03-29-2025 Patient encounter procedure 03/29/2025 1:00 PM EDT Office Visit [facility] [address] [place] [address] Adams Glover, SUPERVISOR POULTRY HATCHERY-MANAGER FIBER [address] [place], [place] [address] [facility] Start: 03-26-2025 Tobacco Screening Tobacco Screening [facility] Start: 03-23-2025 Adult BMI Screening Adult BMI Screen ing [facility] Start: 03-23-2025 Tobacco Screening Tobacco Screening [facility] Start: 03-22-2025 End: 03-22-2025 Clinical Support 03/22/2025 8:30 AM EDT Clinical Support [facility] [address] [place] [phone] Werner Moreira MD [address] [place] [id number] [facility] Start: 03-21-2025 End: 03-22-2025 Clinical Support 03/21/2025 11:00 PM EDT Clinical Support [facility] [address] [place] [phone] [place] [address] [place] [id number] [facility] Start: 02-25-2025 End: 01-25-2026 Magnesium [Mass/volume] in Serum or Plasma Magnesium Lab Routine Restless leg Expected: 02/25/2025 (Approximate), Expires: [facility]25[facility]2026 [facility]: Comment on above: Expected: 02/25/2025 (Approximate), Expires: 01/25/2026 Start: 02-14-2025 End: 02-14-2025 Clinical Support 02/14/2025 2:30 PM EDT Clinical Support [facility] [address] [place] [address], [place] [phone] Karen Gotti DO 605 [facility], [address], [address] [place], [place] [phone] [facility] Start: 02-13-2025 Tobacco Screening Tobacco Screening [facility] Start: 02-10-2025 Adult BMI Screening Adult BMI Screen ing [facility] Start: 01-25-2025 End: 01-25-2025 Patient encounter procedure 01/25/2025 3:40 PM EDT Office Visit [facility] [address] [place] [address], [place] [phone] Adams Glover SUPERVISOR POULTRY HATCHERY-MANAGER [employer] [address] [place] [address], [place] [phone] [facility] Start: 12-20-2024 End: 12-20-2024 Patient encounter procedure 12/20/2024 2:30 PM EDT Office Visit [facility] [address] [place] [phone] Werner Moreira MD [address] [id number] [facility] Start: 12-14-2024 End: 12-14-2024 Clinical Support 12/14/2024 10:40 AM EDT Clinical Support [facility] [address] [place] [address], [place] [phone] Adams Glover SUPERVISOR [employer]ATCH[employer]GER [employer] [address] [place] [address] [place] [phone] [facility] Start: 11-03-2024 Adult BMI Screening Adult BMI Screen ing [facility] Start: 11-03-2024 Tobacco Screening Tobacco Screening [facility] Start: 10-06-2024 End: 10-06-2024 Patient encounter procedure 10/06/2024 8:40 AM EST Office Visit [facility] [address] [place] [phone] Adams Gl[facility] [address] [place] [phone] [facility] Start: 08-06-2024 Adult BMI Screening Adult BMI Screen ing [facility] Start: 08-06-2024 Tobacco Screening Tobacco Screening [facility] Start: 07-02-2024 Depression Screening Depression Scre ening [facility] Start: 06-27-2024 End: 06-27-2024 Patient encounter procedure [facility] Start: 05-01-2024 COVID-19 Vaccine ( season) COVID-19 Vaccine ( season) [facility] Start: 05-01-2024 COVID-19 Vaccine ( season) COVID-19 Vaccine ( season) [facility] Start: 05-01-2024 Influenza vaccination Influenza Vacc ine (#1) [facility] Start: 03-23-2024 End: 03-23-2024 Patient encounter procedure 03/23/2024 1:45 PM EDT Office Visit [facility] [address] [place] [phone] Adams Glover [facility] [address] [place] [phone] [facility] Start: 03-09-2024 End: 02-10-2025 Basic metabolic 2000 panel - Serum or Plasma Basic Metabolic Panel Lab Routine Medication management Expected: 03/09/2024 (Approximate), Expires: 02/10/2025 [facility] Work Phone: Comment on above: Expected: 03/09/2024 (Approximate), Expires: 02/10/2025 Start: 03-09-2024 End: 03-09-2024 Clinical Support 03/09/2024 10:00 AM EDT Clinical Support [facility] [address] [place] [address], [place] [phone] Adams Glover SUPERVISOR [employer]GER [employer] [address] [place] [address], [place] [phone] [facility] Start: 02-11-2024 End: 02-11-2024 Patient encounter procedure 02/11/2024 2:45 PM EDT Office Visit [facility] [address] [place] [address], [place] [phone] Adams Glover SUPERVISOR [employer] [address] [place] [address], [place] [phone] [facility] Start: 12-18-2023 End: 12-18-2023 Clinical Support 12/18/2023 2:45 PM EDT Clinical Support [facility] [address] [place] [address], [place] [phone] Adams Glover SUPERVISOR [employer] [address] [place] [address], [place] [phone] [facility] Start: 11-04-2023 End: 11-04-2023 Patient encounter procedure 11/04/2023 2:45 PM EST Office Visit [facility] [address] [place] [address] [place] [phone] Adams Glover SUPERVISOR [employer] [address] [place] [address], [place] [phone] [facility] Start: 05-01-2023 COVID-19 Vaccine ( season) COVID-19 Vaccine ( season) [facility] Start: 05-01-2020 Influenza vaccination Flu vaccine (# 1) [facility] [employer] Phone: Start: 01-22-2020 DTaP,Tdap and Td Vaccines (7 - Td or Tdap) DTaP,Tdap and Td Vaccines (7 - Td or Tdap) [facility] Start: 01-22-2020 DTaP/Tdap/Td vaccine (7 - Td) DTaP/Tdap/Td vaccine (7 - Td) [facility] [employer] Phone: Start: 2019 Screening for malign ant neoplasm of cervix [facility] Start: 2016 Adult BMI Follow Up Plan Adult BMI Follow Up Plan [facility] Start: 2014 Screening for Chlamy maxx trachomatis Chlamydia screen [facility] [employer] Work Phone: Start: 2013 HIV screening HIV screen [facility] Work Phone: Start: 10-22-2009 Varicella vaccine (1 of 2 - 2-dose childhood series) Varicella vaccine (1 of 2 - 2-dose childhood series) [facility] [employer] Phone: Start: 1998 Hepatitis C screening Hepatitis C sc reen [facility] Work Phone: End: 03-23-2025 HIREN Screen w/ Reflex HIREN Screen w/ Reflex Lab Routine Chronic fatigue Hives 1 Occurrences starting 03/23/2024 until 03/23/2025 [employer] Phone: Comment on above: 1 Occurrences starti ng 03/23/2024 until 03/23/2025 End: 01-12-2025 Basic metabolic 2000 panel - Serum or Plasma Basic Metabolic Panel Lab Routine Hypokalemia 1 Occurrences starting 01/13/2024 until 01/12/2025 [employer] Work Phone: Comment on above: 1 Occurrences starti ng 01/13/2024 until 01/12/2025 End: 12-13-2024 Basic metabolic 2000 panel - Serum or Plasma Basic Metabolic Panel Lab Routine Nausea 1 Occurrences starting 12/14/2023 until 12/13/2024 [employer] Work Phone: Comment on above: 1 Occurrences starti ng 12/14/2023 until 12/13/2024 End: 12-14-2024 Basic metabolic 2000 panel - Serum or Plasma Basic Metabolic Panel Lab Routine Nausea 1 Occurrences starting 12/15/2023 until 12/14/2024 [employer] Work Phone: Comment on above: 1 Occurrences starti ng 12/15/2023 until 12/14/2024 End: 03-23-2025 C-reactive protein C-reactive protein Lab Routine Chronic fatigue Hives 1 Occurrences starting 03/23/2024 until 03/23/2025 [employer] Comment on above: 1 Occurrences starti ng 03/23/2024 until 03/23/2025 End: 11-21-2025 C-reactive protein C-reactive protein Lab Routine Wellness examination Chronic fatigue 1 Occurrences starting 11/21/2024 until 11/21/2025 [employer] Phone: Comment on above: 1 Occurrences starti ng 11/21/2024 until 11/21/2025 End: 11-21-2025 CBC W Auto Differential panel - Blood CBC auto differential Lab Routine Wellness examination Chronic fatigue 1 Occurrences starting 11/21/2024 until 11/21/2025 [employer] Comment on above: 1 Occurrences starti ng 11/21/2024 until 11/21/2025 End: 11-21-2025 Comprehensive metabolic 2000 panel - Serum or Plasma Comprehensive metabolic panel Lab Routine Primary hypertension Wellness examination 1 Occurrences starting 11/21/2024 until 11/21/2025 [employer] Comment on above: 1 Occurrences starti ng 11/21/2024 until 11/21/2025 Cytology Cervical or vaginal smear or scraping study Pap Smear Pathology and Cytology Routine LGSIL on Pap smear of cervix Ordered: 05/18/2024 [facility] [employer] Work Phone: Comment on above: Ordered: 05/18/2024 End: 12-20-2025 Drug Screen, Urine Drug Screen, Urine Lab Routine Excessive daytime sleepiness 1 Occurrences starting 12/20/2024 until 12/20/2025 [facility] on above: 1 Occurrences starti ng 12/20/2024 until 12/20/2025 End: 03-23-2025 Erythrocyte sedimentation rate Erythrocyte Sedimentation Rate (ESR) Lab Routine Chronic fatigue Hives 1 Occurrences starting 03/23/2024 until 03/23/2025 [facility] Comment on above: 1 Occurrences starti ng 03/23/2024 until 03/23/2025 End: 11-21-2025 Lipid 1996 panel - Serum or Plasma Lipid profile Lab Routine Mixed hyperlipidemia Wellness examination 1 Occurrences starting 11/21/2024 until 11/21/2025 [facility] Comment on above: 1 Occurrences starti ng 11/21/2024 until 11/21/2025 End: 12-20-2025 Multiple sleep latency test Multiple sleep latency test Sleep Center Routine Excessive daytime sleepiness 1 Occurrences starting 12/20/2024 until 12/20/2025 [employer] Work Phone: Comment on above: 1 Occurrences starti ng 12/20/2024 until 12/20/2025 End: 12-20-2025 PSG Diagnostic PSG Diagnostic [facility] Routine Excessive daytime sleepiness 1 Occurrences starting 12/20/2024 until 12/20/2025 [facility] Comment on above: 1 Occurrences starti ng 12/20/2024 until 12/20/2025 End: 11-21-2025 Thyroid profile includes TSH FT4 Thyroid profile includes TSH FT4 Lab Routine Anxiety with depression Wellness examination 1 Occurrences starting 11/21/2024 until 11/21/2025 [facility] Comment on above: 1 Occurrences starti ng 11/21/2024 until 11/21/2025 End: 11-21-2025 Vitamin D 25 hydroxy Vitamin D 25 hydroxy Lab Routine Wellness examination 1 Occurrences starting 11/21/2024 until 11/21/2025 [employer] Comment on above: 1 Occurrences starti ng 11/21/2024 until 11/21/2025 Immunizations Immunization Date Immunization Notes Care Provider Tonya alston 03-21-2024 tetanus toxoid, redu mayra diphtheria toxoid, and acellular pertussis vaccine, adsorbed Adams Glover APRN-MANAGER FIBER Work Phone: [facility] 05-28-2017 influenza, seasonal, injectable Manohar Warner MD Work Phone: [facility] 05-28-2017 influenza virus vaccine, unspecified formulation Sherman Fuller DO Work Phone: [facility] 08-21-2010 human papilloma viru s vaccine, quadrivalent Manohar Warner MD Work Phone: [facility] 07-08-2010 influenza virus vaccine, whole virus Manohar Warner MD Work Phone: [facility] 03-27-2010 human papilloma viru s vaccine, quadrivalent Manohar Warner MD Work Phone: [facility] 03-27-2010 meningococcal polysaccharide (groups A, C, Y and W-135) diphtheria toxoid conjugate vaccine (MCV4P) Manohar Warner MD Work Phone: [facility] 01-21-2010 human papilloma viru s vaccine, quadrivalent Manohar Warner MD Work Phone: [facility] 01-21-2010 tetanus toxoid, redu mayra diphtheria toxoid, and acellular pertussis vaccine, adsorbed Manohar Warner MD Work Phone: [facility] 09-24-2009 novel [id number], live virus for nasal administration Manohar Warner MD Work Phone: [facility] 05-04-2003 diphtheria, tetanus toxoids and acellular pertussis vaccine Manohar Warner MD Work Phone: [facility] 05-04-2003 measles, mumps and rubella virus vaccine Manohar Warner MD Work Phone: [facility] 09-01-2000 pneumococcal conjuga te vaccine, 7 valent Manohar Warner MD Work Phone: [facility] 09-04-1999 diphtheria, tetanus toxoids and acellular pertussis vaccine, unspecified formulation Manohar Warner MD Work Phone: [facility] 09-04-1999 haemophilus influenz ae type b vaccine, conjugate unspecified formulation Manohar Warner MD Work Phone: [facility] 09-04-1999 hepatitis B vaccine, pediatric or pediatric/adolescent dosage Manohar Warner MD Work Phone: [facility] 09-04-1999 poliovirus vaccine, unspecified formulation Manohar Warner MD Work Phone: [facility] 06-12-1999 measles, mumps and rubella virus vaccine Manohar Warner MD Work Phone: [facility] 1998 diphtheria, tetanus toxoids and acellular pertussis vaccine, unspecified formulation Manohar Warner MD Work Phone: [facility] 1998 haemophilus influenz ae type b vaccine, conjugate unspecified formulation Manohar Warner MD Work Phone: [facility] 1998 hepatitis B vaccine, pediatric or pediatric/adolescent dosage Manohar Warner MD Work Phone: [facility] 1998 poliovirus vaccine, unspecified formulation Manohar Warner MD Work Phone: [facility] 1998 diphtheria, tetanus toxoids and acellular pertussis vaccine, unspecified formulation Manohar Warnre MD Work Phone: [facility] 1998 haemophilus influenz ae type b vaccine, conjugate unspecified formulation Manohar Warner MD Work Phone: [facility] 1998 poliovirus vaccine, unspecified formulation Manohar Warner MD Work Phone: [facility] 1998 diphtheria, tetanus toxoids and acellular pertussis vaccine, unspecified formulation Manohar Warner MD Work Phone: [facility] 1998 haemophilus influenz ae type b vaccine, conjugate unspecified formulation Manohar Warner MD Work Phone: [facility] 1998 hepatitis B vaccine, pediatric or pediatric/adolescent dosage Manohar Warner MD Work Phone: [facility] 1998 poliovirus vaccine, unspecified formulation Manohar Warner MD Work Phone: [employer] 1998 hepatitis B vaccine, pediatric or pediatric/adolescent dosage Manohar Warner MD Work Phone: [employer] NEGATED: Highlighted anh has not occurred!09-12-2020 influenza, injectable, quadrivalent, preservative free Manohar Warner MD Work Phone: [employer] Comment on above: Deferred: Patient Re fused NEGATED: Highlighted row has not occurred!09-02-2018 influenza, injectable, quadrivalent, preservative free Manohar Warner MD Work Phone: [employer] Comment on above: Deferred: Patient Re fused Payers Date Payer Category Payer Managed Care Other (unspecified) [employer] [id number] 2022 Commercial Managed C are - PPO [employer] [id number] 2022 Private Health Insurance [employer] [id number] 2022 Unknown [id number] [id number]. [id number] 2020 Unknown [id number] 1998 Unknown [id number] 2.16.840.1.906224.3.579.2. 173 1998 Unknown [id number] 2.16.840.1.714582.3.579.2. 593 1998 Unknown [id number] 2.16.840.1.443515.3.579.2. 593 1998 Unknown [id number] 2.16.840.1.092154.3.579.2. 593 1998 Unknown [id number] 2.16.840.1.945974.3.579.2. 1259 1998 Unknown [id number] 2.16.840.1.463196.3.579.2. 1259 1998 Unknown [id number] 2.16.840.1.276439.3.579.2. 1286 1998 Unknown [id number] 2.16.840.1.563742.3.579.2. 1286 1998 Unknown [id number] 2.16.840.1.155015.3.579.2. 128 1998 Unknown [id number] 2.16.840.1.191216.3.579.2. 1286 1998 Unknown [id number] 2.16.840.1.739968.3.579.2. 1285 1998 Unknown [id number] 2.16.840.1.202314.3.579.2. 1285 1998 Unknown [id number] 2.16.840.1.248641.3.579.2. 1285 1998 Unknown [id number] 2.16.840.1.534213.3.579.2. 1285 1998 Unknown [id number] 2.16.840.1.158548.3.579.2. 1285 1998 Unknown [id number] 2.16.840.1.080528.3.579.2. 1285 1998 Unknown [id number] 2.840.1.040739.3.579.2. 1285 1998 Unknown [id number] 2.840.1.254959.3.579.2. 1285 1998 Unknown [id number] 2.840.1.833921.3.579.2. 1285 1998 Unknown [id number] 2.840.1.760745.3.579.2. 1285 1998 Unknown [id number] 2.16840.1.770761.3.579.2. 1285 1998 Unknown [id number] 2.840.1.869843.3.579.2. 1285 1998 Unknown [id number] 2.16840.1.452564.3.579.2. 1285 1998 Unknown [id number] 2.16840.1.316002.3.579.2. 1285 1998 Unknown [id number] 2.16840.1.809340.3.579.2. 1285 1998 Unknown [id number] 2.16840.1.693285.3.579.2. 1285 1998 Unknown [id number] 2.16840.1.130850.3.579.2. 1286 1998 Unknown [id number] 2.16.840.1.661834.3.579.2. 1286 1998 Unknown [id number] 2.16.840.1.534538.3.579.2. 1286 1998 Unknown [id number] 2.16.840.1.123816.3.579.2. 1286 1998 Unknown [id number] 2.16.840.1.342056.3.579.2. 1286 1959 Unknown [id number] 1959 Unknown [id number] Social History Date Type Detail Facility Tobacco smoking stat [facility] Unknown if ever smoked [employer] Phone: Start: 1998 Sex Assigned At Not on file [employer] Phone: Exposure to SARS-CoV -2 (event) Not sure [employer] Phone: Start: 03-20-2023 End: 05-18-2024 Tobacco smoking status UTIS Never smoked tobacco [facility] Start: 09-22-2023 Alcoholic beverage intake Lifetime non-drinker (finding) [facility] Start: 03-20-2023 End: 05-18-2024 History of Social function [facility] Start: 03-20-2023 End: 05-18-2024 Tobacco use panel [facility] Start: 03-20-2023 Alcohol Comment Caffeine: 1-2 cups/day [facility] Start: 07-02-2023 End: 05-18-2024 Tobacco use and exposure Smokeless tobacco non-user [facility] Start: 05-18-2024 End: 04-11-2025 Alcoholic beverage intake Current drinker of alcohol (finding) [facility] Start: 05-18-2024 End: 11-21-2024 Alcohol Comment Socially [facility] Do you belong to any clubs or organizations such as mosque groups, unions, fraternal or athletic groups, or school groups? Yes [facility] Are you now , , , , never or living with a partner? Never [facility] How often to you hav e a drink containing alcohol? 2-4 times a month [facility] How many standard dr inks containing alcohol do you have on a typical day? 1 or 2 [facility] How often do you hav e 6 or more drinks on 1 occasion? Monthly [facility] How hard is it for y ou to pay for the very basics like food, housing, medical care, and heating Not very hard [facility] Adolescent depressio n screening assessment 17 [facility] Do you feel stress - tense, restless, nervous, or anxious, or unable to sleep at night because your mind is troubled all the time - these days [OSQ] To some extent [facility] Start: 05-06-2021 Education 16 [facility] Start: 05-08-2021 Alcohol Comment occassional [facility] Start: 1998 Sex assigned at Female [facility] Start: 04-03-2015 Sex Female (finding) [facility] Start: 11-25-2021 Gender identity Identifies as female gender (finding) [facility] Start: 11-25-2021 Sexual orientation Heterosexual (finding) [facility] Clinical Notes 09-15-2023 to 04-12-2025 Telephone Encounter - Nia Wilkinson CMA - 04/12/2025 11:14 AM EDTTelephone Encounter - Nia Wilkinson CMA - 04/12/2025 11:14 AM Dot Moreira MD - 04/11/2025 2:45 PM EDT Note Date & Type Note Facility 04-12-2025 Miscellaneous Notes CPAPA, PAP mask and supplies order with supportive documentation faxed to [facility]. documented in this encounter [facility] 04-12-2025 Telephone encounter Note CPAPA, PAP mask and supplies order with supportive documentation faxed to [facility]. [facility] 04-11-2025 History of Present illness Narrative CHIEF COMPLAINT: Anne Shah is a 25 y.o. female who presents to [facility] in follow-up for hypersomnia She is here to follow up on her polysomnogram and multiple sleep latency testing results The patient was unaccompanied. INTERVAL EVENTS Since last seen, Ms. Shah reports no real significant changes to her sleep schedule. She is still off work for the summer. She is going back to teaching very soon. She notes she will have to readjust her sleep schedule. She reports right now that she is sleeping long hours waking up feeling groggy. She is napping when she does not use her Vyvanse for about 1 hour. When she is using her Vyvanse she is not napping. She is sleeping from about 2:00 a.m. to 11:00 a.m. each day. She does endorse being a night owl She denies any sleepiness with driving. She reports that her sister was diagnosed with obstructive sleep apnea. She also has significant nasal congestion. 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 She has significant rebound congestion when she stops using it in his not able to discontinue it. Drinks 1-2 pops a day [place] Sleepiness Scale: Sitting and Reading: (!) Moderate Chance Watching TV: (!) High Chance Sitting inactive in a public place (theater, meeting): Never As a passenger in a car for an hour without a break: Never Lying down in the afternoon to rest: (!) High Chance Sitting and talking to someone: Never Sitting quietly after lunch (without alcohol): Slight Chance In a car, while stopped for a few minutes in traffic: Never Total: 9 I personally reviewed this data PAST MEDICAL HISTORY: Patient Active Problem List Diagnosis Generalized anxiety disorder Attention deficit hyperactivity disorder (ADHD) Primary hypertension Major depressive disorder, recurrent episode, moderate ([facility]) Chronic nasal congestion Past Medical History: Diagnosis Date ADD (attention deficit disorder) Allergic Anxiety Asthma Depression Obesity Primary hypertension 08/06/2023 Strep throat Varicella Visual impairment Past Surgical History: Procedure Laterality Date WISDOM TOOTH EXTRACTION ALLERGIES: Allergies Allergen Reactions Penicillins Hives Sulfa (Sulfonamide Antibiotics) Hives Amoxicillin-Pot Clavulanate Hives, Itching and Rash MEDICATIONS: Current Outpatient Medications on File Prior to Visit Medication Sig Dispense Refill desvenlafaxine (PRISTIQ) 100 mg 24 hr tablet take 1 tablet by mouth every morning 90 tablet 3 hydrOXYzine (VISTARIL) 25 mg capsule Take 1 capsule (25 mg total) by mouth 3 (three) times a day as needed for anxiety. 270 capsule 1 [START ON 04/14/2025] lisdexamfetamine (VYVANSE) 50 mg capsule Take 1 capsule (50 mg total) by mouth every morning. Max Daily Amount: 50 mg 30 capsule 0 lisdexamfetamine (VYVANSE) 50 mg capsule Take 1 capsule (50 mg total) by mouth every morning. Max Daily Amount: 50 mg 30 capsule 0 lisinopriL (PRINIVIL,ZESTRIL) 10 mg tablet TAKE 1 TABLET(10 MG) BY MOUTH IN THE MORNING 90 tablet 1 magnesium oxide (MAGOX) 400 mg tablet Take 1 tablet (400 mg total) by mouth before bedtime. 30 tablet 2 meclizine (ANTIVERT) 12.5 mg tablet Take 1 tablet (12.5 mg total) by mouth 3 (three) times a day as needed for dizziness. 30 tablet 1 TRI-SPRINTEC, 28, 0.18/0.215/0.25 mg-35 mcg (28) per tablet valACYclovir (VALTREX) 1000 mg tablet lisdexamfetamine (VYVANSE) 50 mg capsule Take 1 capsule (50 mg total) by mouth every morning. Max Daily Amount: 50 mg (Patient not taking: Reported on 04/11/2025) 30 capsule 0 No current facility-administered medications on file prior to visit. PHYSICAL EXAMINATION: BP 122/79 (BP Site: Right Arm, BP Postition: Sitting) Pulse 87 Ht 165.1 cm (5' 5 ) Wt 69.4 kg (153 lb) SpO2 98% BMI 25.46 kg/m General appearance: no acute distress. Eyes: no conjunctival erythema, no scleral icterus. Ears, Nose, Mouth and Throat: external ears unremarkable, external nose and mouth unremarkable Neck: trachea position midline. Respiratory: normal work of breathing Skin: No rash/ lesions/ulcers/ induration/subcutaneous nodules in visible regions. Neurologic: face symmetric at rest and activation, no dysarthria, no tremor or abnormal movements Mental Status: Cognitive: Alert and oriented. Insight good. Judgment good. DATA: I personally reviewed the following: Lab Results Component Value Date WBC 6.4 12/14/2024 HGB 12.3 12/14/2024 HCT 37.5 12/14/2024 MCV 94 12/14/2024 PLT 296 12/14/2024 No results found for: FERRITIN Chemistry Component Value Date/Time K 4.4 12/14/2024 1041 CL 105 12/14/2024 1041 CO2 25 12/14/2024 1041 BUN 14 12/14/2024 1041 CREATININE 0.78 12/14/2024 1041 GLU 74 12/14/2024 1041 Component Value Date/Time CALCIUM 9.0 12/14/2024 1041 ALKPHOS 65 12/14/2024 1041 AST 22 12/14/2024 1041 ALT 13 12/14/2024 1041 Lab Results Component Value Date TSH 3.96 12/14/2024 Sleep Study Results: MSLT 03/23/25 DIAGNOSIS: Obstructive Sleep Apnea (ASMITA) - ICD Code G47.33 COMMENTS: This multiple sleep latency test (MSLT) followed a polysomnogram (PSG) with total sleep time of 505 minutes and borderline ASMITA, AHI 5.1. There was no sleep onset REM during the PSG. The patient slept on 3 of 5 nap opportunities. There were no sleep onset REM periods. A urine drug screen was performed and was negative for all tested substances. The patient discontinued lisdexamphetamine 2 weeks prior to the testing but continued desvenlafaxine for the testing. A sleepy diary was provided but not returned at the time of interpretation. TREATMENT CONSIDERATIONS: This MSLT is not suggestive of a central disorder of hypersomnolence. Treatment for mild ASMITA is recommended. Clinical correlation advised for possible delayed sleep wake phase disorder. Polysomnogram on 03/22/2025 (AHI (3%)=5.1 events/hour; AHI (4%)= 0.0 events/hour; Mina SpO2=91.0%; Ercvta=751.0 lbs; BMI=26.7 kg/m2) DIAGNOSIS: Obstructive Sleep Apnea (G47.33) COMMENTS: This baseline polysomnogram demonstrates a borderline degree of obstructive sleep apnea characterized by obstructive hypopneas (with flow limitation) associated with arousals, worse in supine and supine-REM sleep. The nasal pressure signal was poor quality for the last 3 hours of the recording. The patient's sleep efficiency on the diagnostic night was 86.1%. The total sleep time was 505 minutes. Latency to sleep was 60.3 minutes with REM latency of 82.5 minutes. A multiple sleep latency test followed; please see the separate report. TREATMENT CONSIDERATIONS: A trial of CPAP is recommended IMPRESSION/RECOMMENDATIONS: 1. ASMITA (obstructive sleep apnea) 2. Hypersomnia 3. Rhinitis medicamentosa Anne Shah is a 25 y.o. female with medical problems including as above, presenting in follow up for hypersomnia, recently diagnosed mild obstructive sleep apnea AHI of 5.1 SpO2 min 91%, she does have significant nasal congestion and rebound related to oxymetazoline use. On my personal review of her polysomnogram she did have hypopneas noted on the nasal pressure signal associated with arousals. There was also intermittent loss of the nasal pressure signal likely related to congestion. Recommended a trial of autoCPAP given the degree of hypersomnia, she was ordered today at 4-12 cm of water, compliance was discussed with the patient. I also referred her to ENT for evaluation, discontinue oxymetazoline RV in 31- 90 days of receiving her machine EDUCATION: Pathophysiology of ASMITA was explained. Health risks associated with untreated ASMITA were discussed (cardiopulmonary, cerebrovascular, and anesthesia/sedative-related). Risks associated with excessive daytime sleepiness, particularly while driving/operating machinery were discussed. 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 ASMITA treatment options were discussed. CPAP is the most predictably effective treatment. If indicated and prescribed, CPAP must be used every night, all night for full benefits. It may take several weeks until fully accustomed to using the treatment, and before benefits (improved sleep quality and daytime altertness) are noticeable. Potential problems with CPAP were reviewed. Interim measures to reduce obstructive sleep apnea severity were recommended (avoidance of the supine position and elevation of the upper body and during sleep). Above plan as discussed with the patient who acknowledged understanding and agreement. WERNER MOREIRA MD [facility] [address] [place] [id number] [facility] Instructions Werner Moreira MD - 04/11/2025 2:45 PM EDT Referral ENT REQUIREMENTS FOR PAP (CPAP/BPAP/ASV) COMPLIANCE All insurances vary but these are the most common compliance requirements. Please check with your insurer/DME company for your specific compliance requirements: 1) Minimum PAP use is defined as follows (all apply): A. At least 4 hours per day/night (24 hour period) B. At least 21 nights (=70% usage) during a 30 day period C. Minimum usage must be demonstrated within the first 90 days (starts the day you obtain your PAP machine from your supplier) 2) You must have a follow up visit at the Sleep Clinic: A. Follow up visit appointment must be at least 31 and no more than 90 days after receiving your PAP machine. B. It is your responsibility to reschedule this appointment if there is a delay in receiving your PAP machine that would not allow enough time to demonstrate sufficient use. If the above requirements are not met: 1) You may have to re-qualify to keep your PAP machine: a repeat sleep study may be required. 2) You may have to return your PAP machine to the supplier or receive a bill from the supplier. 3) These consequences will be determined by your insurance company. documented [facility]25 Miscellaneous Notes PSG and MSLT interpreted RV 04/11/25 to review MSLT 03/23/25 DIAGNOSIS: Obstructive Sleep Apnea (ASMITA) - ICD Code G47.33 COMMENTS: This multiple sleep latency test (MSLT) followed a polysomnogram (PSG) with total sleep time of 505 minutes and borderline ASMITA, AHI 5.1. There was no sleep onset REM during the PSG. The patient slept on 3 of 5 nap opportunities. There were no sleep onset REM periods. A urine drug screen was performed and was negative for all tested substances. The patient discontinued lisdexamphetamine 2 weeks prior to the testing but continued desvenlafaxine for the testing. A sleepy diary was provided but not returned at the time of interpretation. TREATMENT CONSIDERATIONS: This MSLT is not suggestive of a central disorder of hypersomnolence. Treatment for mild ASMITA is recommended. Clinical correlation advised for possible delayed sleep wake phase disorder. Polysomnogram on 03/22/2025 (AHI (3%)=5.1 events/hour; AHI (4%)= 0.0 events/hour; Mina SpO2=91.0%; Vampxy=912.0 lbs; BMI=26.7 kg/m2) DIAGNOSIS: Obstructive Sleep Apnea (G47.33) COMMENTS: This baseline polysomnogram demonstrates a borderline degree of obstructive sleep apnea characterized by obstructive hypopneas (with flow limitation) associated with arousals, worse in supine and supine-REM sleep. The nasal pressure signal was poor quality for the last 3 hours of the recording. The patient's sleep efficiency on the diagnostic night was 86.1%. The total sleep time was 505 minutes. Latency to sleep was 60.3 minutes with REM latency of 82.5 minutes. A multiple sleep latency test followed; please see the separate report. TREATMENT CONSIDERATIONS: A trial of CPAP is recommended documented in this encounter [employer] 04-07-2025 Telephone encounter Note PSG and MSLT interpreted RV 04/11/25 to review MSLT 03/23/25 DIAGNOSIS: Obstructive Sleep Apnea (ASMITA) - ICD Code G47.33 COMMENTS: This multiple sleep latency test (MSLT) followed a polysomnogram (PSG) with total sleep time of 505 minutes and borderline ASMITA, AHI 5.1. There was no sleep onset REM during the PSG. The patient slept on 3 of 5 nap opportunities. There were no sleep onset REM periods. A urine drug screen was performed and was negative for all tested substances. The patient discontinued lisdexamphetamine 2 weeks prior to the testing but continued desvenlafaxine for the testing. A sleepy diary was provided but not returned at the time of interpretation. TREATMENT CONSIDERATIONS: This MSLT is not suggestive of a central disorder of hypersomnolence. Treatment for mild ASMITA is recommended. Clinical correlation advised for possible delayed sleep wake phase disorder. Polysomnogram on 03/22/2025 (AHI (3%)=5.1 events/hour; AHI (4%)= 0.0 events/hour; Mina SpO2=91.0%; Dgsluj=922.0 lbs; BMI=26.7 kg/m2) DIAGNOSIS: Obstructive Sleep Apnea (G47.33) COMMENTS: This baseline polysomnogram demonstrates a borderline degree of obstructive sleep apnea characterized by obstructive hypopneas (with flow limitation) associated with arousals, worse in supine and supine-REM sleep. The nasal pressure signal was poor quality for the last 3 hours of the recording. The patient's sleep efficiency on the diagnostic night was 86.1%. The total sleep time was 505 minutes. Latency to sleep was 60.3 minutes with REM latency of 82.5 minutes. A multiple sleep latency test followed; please see the separate report. TREATMENT CONSIDERATIONS: A trial of CPAP is recommended [employer] Work Phone: 02-17-2025 Miscellaneous Notes Spoke to Anne. She verbalized understanding ----- Message from PAL Rivera sent at 02/16/2025 1:11 PM EDT ----- Magnesium is low end of normal please ensure to take supplement routinely ----- Message ----- From: Lab, Background User Sent: 02/14/2025 7:14 PM EDT To: PAL Rivera documented in this encounter [employer] 02-17-2025 Telephone encounter Note Spoke to Anne. She verbalized understanding ----- Message from PAL Rivera sent at 02/16/2025 1:11 PM EDT ----- Magnesium is low end of normal please ensure to take supplement routinely ----- Message ----- From: Lab, Background User Sent: 02/14/2025 7:14 PM EDT To: PAL Rivera [facility] 02-14-2025 History of Present illness Narrative Patient is here for nurse visit. They are here for a blood draw. Venipuncture performed in the left arm. Patient had no adverse reactions. Kate Sky CMA [facility] [employer] 01-25-2025 History of Present illness Narrative Subjective Patient ID: Anne Shah is a 24 y.o. female. KIANNA Osorio presents to the office for follow up on hypertension and dizziness. Blood pressure was elevated at 146/84 at last appointment I therefore started her on lisinopril 10 mg once daily. I recommended she start antihistamine and she was to monitor blood pressure and heart rate. She reports she feels that she is tolerating the medication well and blood pressure has been stable. She reports she has been taking the daily antihistamine but still notes that she is having occasional dizziness with change of position. She notices the lightheadedness or room spinning more so when she is laying down or with quick change of head position. She reports when she gets this dizziness or has the feeling that the room is lasts for a few seconds. However she notes that this has been occurring almost daily. She notes she has been monitoring blood pressure and it has been good she has been monitoring heart rate as well and at times she does notice that it is at the higher end of normal or has been high at times. She admits she has not been monitoring as closely. When discussing fluid intake she admits she may not be drinking as much fluids as she probably should. She also noted restless leg syndrome at night.. The following portions of the patient's history were reviewed and updated as appropriate: allergies, current medications, past family history, past medical history, past social history, past surgical history, problem list, and medication reconciliation was completed including current medication and post discharge medication. Review of Systems Constitutional: Negative for chills, diaphoresis, fatigue, fever and unexpected weight change. HENT: Negative. Eyes: Negative. Respiratory: Negative for cough, chest tightness, shortness of breath and wheezing. Cardiovascular: Negative for chest pain, palpitations and leg swelling. Gastrointestinal: Negative for abdominal pain, diarrhea, nausea and vomiting. Endocrine: Negative for polydipsia, polyphagia and polyuria. Genitourinary: Negative for difficulty urinating, frequency, hematuria and urgency. Musculoskeletal: Negative for arthralgias, gait problem, joint swelling and neck pain. Restless leg syndrome. Skin: Negative. Neurological: Positive for dizziness and light-headedness. Negative for syncope, weakness and numbness. Psychiatric/Behavioral: Negative for self-injury and suicidal ideas. Objective Physical Exam Vitals and nursing note reviewed. Constitutional: General: She is not in acute distress. Appearance: Normal appearance. She is well-developed. She is not ill-appearing. HENT: Head: Normocephalic and atraumatic. Right Ear: Ear canal and external ear normal. Left Ear: Ear canal and external ear normal. Ears: Comments: Fluid to bilateral TMs visible. Nose: Nose normal. Mouth/Throat: Mouth: Mucous membranes are moist. Pharynx: Oropharynx is clear. Eyes: Extraocular Movements: Extraocular movements intact. Conjunctiva/sclera: Conjunctivae normal. Pupils: Pupils are equal, round, and reactive to light. Comments: Glasses intact Neck: Vascular: No carotid bruit. Cardiovascular: Rate and Rhythm: Normal rate and regular rhythm. Pulses: Normal pulses. Heart sounds: Normal heart sounds. No murmur heard. Pulmonary: Effort: Pulmonary effort is normal. No respiratory distress. Breath sounds: Normal breath sounds. No wheezing, rhonchi or rales. Chest: Chest wall: No tenderness. Abdominal: General: Bowel sounds are normal. There is no distension. Palpations: Abdomen is soft. There is no mass. Tenderness: There is no abdominal tenderness. There is no guarding or rebound. Hernia: No hernia is present. Musculoskeletal: General: Normal range of motion. Cervical back: Normal range of motion and neck supple. No rigidity or tenderness. Right lower leg: No edema. Left lower leg: No edema. Lymphadenopathy: Cervical: No cervical adenopathy. Skin: General: Skin is warm and dry. Capillary Refill: Capillary refill takes less than 2 seconds. Findings: No rash. Neurological: General: No focal deficit present. Mental Status: She is alert and oriented to person, place, and time. Motor: No weakness. Coordination: Coordination normal. Comments: Equal strong strength bilaterally. Psychiatric: Mood and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 constipation. Discussed need to increase fluid and fiber intake for constipation. She can take OTC stool softener, I do not recommend routine laxative. Try hydroxyzine at bedtime to help with sleep. However, I recommend she discuss with mental health. Keep appointment with Dr. Warner. Discussed dermatolgy follow up for rash to neck. Discussed possible check for lupus, d/t elevated CRP. However, HIREN was negative. I discussed concern for ongoing wegovy despite being at normal weight. I would like to stop this medication and ensure adequate hydration and encourage exercise, but anne would really like to continue to wegovy to help ensure she does not rebound gain weight back. FU 3 months for wellness with labs. We can repeat CRP and see if it continues to be elevated. Anne was seen today for follow-up. Diagnoses and all orders for this visit: Anxiety with depression Obesity (BMI 30-39.9) Mixed hyperlipidemia - semaglutide, weight loss, (WEGOVY) 1 mg/0.5 mL pen injector; Inject 0.5 mL (1 mg total) under the skin every 7 days. Primary hypertension - semaglutide, weight loss, (WEGOVY) 1 mg/0.5 mL pen injector; Inject 0.5 mL (1 mg total) under the skin every 7 days. Sleep disturbance Constipation, unspecified constipation type Other orders - Discontinue: famotidine (PEPCID) 20 mg tablet; Take 1 tablet (20 mg total) by mouth in the morning and 1 tablet (20 mg total) before bedtime. PAL Rivera 06/28/24 [id number] documented in this encounter [facility] 05-25-2024 Miscellaneous Notes Patient called stating she had to leave work on Thursday due to not feeling well. She states she is pretty sure she had the flu. She is planning on returning to work tomorrow but they want a letter from dr Norm Clay advise? Letter written Called patient and informed her. She stated understanding. documented in this encounter [facility] 05-25-2024 Telephone encounter Note Patient called stating she had to leave work on Thursday due to not feeling well. She states she is pretty sure she had the flu. She is planning on returning to work tomorrow but they want a letter from dr Norm Clay advise? [facility] 05-25-2024 Telephone encounter Note Letter written [facility] 05-25-2024 Telephone encounter Note Called patient and informed her. She stated understanding. [facility] 05-18-2024 History of Present illness Narrative Reason for Appointment: Patient ID: Anne Shah is a 24 y.o. female who presents for Abnormal Pap Smear Patient presents today for Repeat Pap. MEDICATIONS Current Outpatient Medications Medication Instructions Acyclovir 50 MG tablet 1 capsule, Every 24 hours desvenlafaxine succinate ER (Pristiq) 25 MG 24 hour tablet Pristiq hydrOXYzine HCl (Atarax) 25 MG tablet Every 8 hours lisdexamfetamine (VYVANSE) 40 mg, Oral, Daily RT norgestimate-ethinyl estradiol (Ortho Tri-Cyclen,Trinessa) 0.18/0.215/0.25 MG-35 MCG tablet 1 tablet, Oral, Daily norgestimate-ethinyl estradiol (Ortho-Cyclen) 0.25-35 MG-MCG tablet 1 tablet, Oral, Daily Wegovy 0.25 MG/0.5ML solution auto-injector ADMINISTER 0.25 MG UNDER THE SKIN EVERY 7 DAYS ALLERGIES Allergies Allergen Reactions Bactrim [Sulfamethoxazole-Trimethoprim] Penicillins Sulfa Antibiotics PROBLEMS Active Ambulatory Problems Diagnosis Date Noted No Active Ambulatory Problems Resolved Ambulatory Problems Diagnosis Date Noted No Resolved Ambulatory Problems Past Medical History: Diagnosis Date Abnormal Pap smear of cervix Asthma ([facility] 2007 Chronic tonsillitis HSV-1 infection Hypertension ([facility]) 2022 Ovarian cyst HISTORY PAST MEDICAL HISTORY SOCIAL HISTORY Past Medical History: Diagnosis Date Abnormal Pap smear of cervix Asthma ([facility]) 2007 Chronic tonsillitis HSV-1 infection Hypertension ([facility]) 2022 Ovarian cyst Social History Tobacco Use Smoking status: Never Smokeless tobacco: Never Substance Use Topics Alcohol use: Yes Comment: Socially Drug use: Never FAMILY HISTORY Family History Problem Relation Name Age of Onset Hypertension Mother Osiris Diabetes Mother Osiris Hypertension Father Junior Diabetes Maternal Grandmother Florinda Heart disease Maternal Grandfather Other (stomach problem) Paternal Grandfather Cancer Paternal Grandmother Anay SURGICAL HISTORY Past Surgical History: Procedure Laterality Date EXCISION INGROWN TOENAIL PAP SMEAR 05/26/2022 ASCUS -HPV WISDOM TOOTH EXTRACTION teeth REVIEW OF SYSTEMS Review of Systems: Review of Systems Constitutional: Negative. HENT: Negative. Eyes: Negative. Respiratory: Negative. Cardiovascular: Negative. Gastrointestinal: Negative. Genitourinary: Negative. Musculoskeletal: Negative. Skin: Negative. Neurological: Negative. All other systems reviewed and are negative. Hematological: Negative. Endocrine: Negative. Allergic/Immunologic: Negative. OBJECTIVE Objective: Physical Exam Constitutional: Appearance: Normal appearance. She is well-developed. Genitourinary: Vulva normal. Cardiovascular: Rate and Rhythm: Normal rate and regular rhythm. Pulmonary: Effort: Pulmonary effort is normal. Breath sounds: Normal breath sounds. Abdominal: General: Bowel sounds are normal. There is no distension. Palpations: Abdomen is soft. Tenderness: There is no abdominal tenderness. There is no guarding or rebound. Musculoskeletal: General: No swelling. Normal range of motion. Right lower leg: No edema. Left lower leg: No edema. Neurological: Mental Status: She is alert and oriented to person, place, and time. Skin: General: Skin is warm and dry. Psychiatric: Mood and Affect: Mood normal. Behavior: Behavior normal. Vitals and nursing note reviewed. Exam conducted with a screw machine set up operator present. Vitals: Estimated body mass index is 25.75 kg/m as calculated from the following: Height as of this encounter: 5' 4 . Weight as of this encounter: 150 lb. BP: 120/76 Patient's last menstrual period was 05/04/2024. ASSESSMENT & PLAN ICD-10-CM 1. LGSIL on Pap smear of cervix R87.612 Pap Smear Repeat Pap: Patient presents today for a repeat pap. Previous pap results were reviewed and noted to be LGSIL. Question regarding previous results were discussed. Repeat Pap was obtained without difficulty. Follow Up: Patient is to return to the office in 1 year for annual exam. Documented by Aracely Rao LPN on behalf of: Sherman Fuller DO documented in this encounter [facility] 04-27-2024 Miscellaneous Notes Verbalized understanding of Lab results documented in this encounter [facility] 04-27-2024 Telephone encounter Note Verbalized understanding of Lab results [facility] 04-27-2024 History of Present illness Narrative Subjective Patient ID: Anne Shah is a 24 y.o. female. KIANNA Osorio presents to the office with concern for UTI. She reports symptoms began yesterday with increased frequency, urgency, abdominal cramping, and lower back pain. She admits to having chills. She took pyridium today. She did not check for fever. The following portions of the patient's history were reviewed and updated as appropriate: allergies, current medications, past family history, past medical history, past social history, past surgical history, problem list, and medication reconciliation was completed including current medication and post discharge medication. Review of Systems Constitutional: Positive for chills. Negative for diaphoresis, fatigue, fever and unexpected weight change. Genitourinary: Positive for dysuria, frequency and urgency. Negative for hematuria. Musculoskeletal: Negative for myalgias. Objective Physical Exam Vitals and nursing note reviewed. Constitutional: General: She is not in acute distress. Appearance: Normal appearance. She is not ill-appearing. HENT: Head: Normocephalic and atraumatic. Pulmonary: Breath sounds: Normal breath sounds. Abdominal: Tenderness: There is abdominal tenderness. There is left CVA tenderness. Comments: Lower abdominal tenderness Musculoskeletal: Right lower leg: No edema. Left lower leg: No edema. Skin: General: Skin is warm and dry. Findings: No erythema or rash. Neurological: Mental Status: She is alert. Assessment/Plan She reports she has been able to tolerate keflex in the past. Keflex sent. She will let me know if symptoms do not improve. Ensure to drink plenty of fluids. Diagnoses and all orders for this visit: Dysuria - POCT urinalysis dipstick only Acute cystitis with hematuria Other orders - CEPHalexin (KEFLEX) 500 mg capsule; Take 1 capsule (500 mg total) by mouth 3 (three) times a day for 5 days. PAL Rivera 04/27/24 [id number] documented in this encounter [facility] 04-20-2024 History of Present illness Narrative Patient was seen today in office for lab draw. Patient tolerated well. documented in this encounter [facility] 03-23-2024 History of Present illness Narrative Subjective Patient ID: Anne Shah is a 24 y.o. female. HPI Anne presents to the office for HTN follow up. We discontinued chlorthalidone at last visit as she was having episodes of hypokalemia despite taking supplement. However, she has been working on losing weight and has been successful with wegovy. Blood pressure has therefore been under better control and it was acceptable to stop medication and monitor BP. We also initiated PPI for nausea, however, this may have been related to the hypokalemia. She had repeat labs completed on 03/09/2024 and potassium was back to normal, 3.7. Two days 130/100. Otherwise blood pressure has been good. Anne reports a concern today. She stepped on metal, she has been having muscle spasm to her foot ever since. She reports her foot did bleed when she stepped on the metal. She got updated Tetanus on Thursday at [facility]. Anne would like to discuss her fatigue. She reports she can sleep for 16 hours and still be tired. She feels like she has had increased fatigue for a few years. She would like to inquire about labs for possible autoimmune disorder. She reports she has gotten an intermittent rash throughout the year, hives. She feels like she easily gets sick. She has kenisha fog. The following portions of the patient's history were reviewed and updated as appropriate: allergies, current medications, past family history, past medical history, past social history, past surgical history, problem list, and medication reconciliation was completed including current medication and post discharge medication. Review of Systems Constitutional: Negative for chills, diaphoresis, fatigue, fever and unexpected weight change. Respiratory: Negative for cough, chest tightness, shortness of breath and wheezing. Cardiovascular: Negative for chest pain, palpitations and leg swelling. Gastrointestinal: Negative for abdominal pain, blood in stool, constipation, diarrhea, nausea, rectal pain and vomiting. Musculoskeletal: Foot pain Skin: Negative. Neurological: Negative for dizziness, syncope, weakness, light-headedness and numbness. Psychiatric/Behavioral: Negative for self-injury and suicidal ideas. The patient is nervous/anxious. Continues with anxiety Objective Physical Exam Vitals and nursing note [...] 2 seconds. Findings: No erythema or rash. Comments: Some tenderness to area where she stepped on metal. Single puncture wound visible. No redness, warmth, or drainage. Neurological: General: No focal deficit present. Mental Status: She is alert and oriented to person, place, and time. Psychiatric: Mood and Affect: Mood normal. Behavior: Behavior normal. Assessment/Plan Please monitor for hives and triggers. Labs ordered to check for autoimmune disorder. She has been taking the protonix and feels that his has been working well for her. We will initiate pepcid after 8 weeks of PPI. Foot appears to be healing. Please monitor for symptoms of tetanus, discussed possible side effects. Refill on wegovy. Continue to work on diet and exercise for weight management and hypertension. Anne was seen today for hypertension and gi problem. Diagnoses and all orders for this visit: Primary hypertension - semaglutide, weight loss, (WEGOVY) 1 mg/0.5 mL pen injector; Inject 0.5 mL (1 mg total) under the skin every 7 days. Obesity (BMI 30-39.9) - semaglutide, weight loss, (WEGOVY) 1 mg/0.5 mL pen injector; Inject 0.5 mL (1 mg total) under the skin every 7 days. Mixed hyperlipidemia - semaglutide, weight loss, (WEGOVY) 1 mg/0.5 mL pen injector; Inject 0.5 mL (1 mg total) under the skin every 7 days. Chronic fatigue - HIREN Screen w/ Reflex; Future - Erythrocyte Sedimentation Rate (ESR); Future - C-reactive protein; Future Hives - HIREN Screen w/ Reflex; Future - Erythrocyte Sedimentation Rate (ESR); Future - C-reactive protein; Future Other orders - famotidine (PEPCID) 20 mg tablet; Take 1 tablet (20 mg total) by mouth in the morning. PAL Rivera 03/26/24 1401 [facility] History of Present illness Narrative Subjective Patient ID: Anne Shah is a 23 y.o. female. KIANNA Osorio presents to the office for follow up on HTN and weight management. She has been taking Wegovy 0.5 mg and tolerating well. She has been on chlorthalidone as well for elevated blood pressure, however her labs have been indicating hypokalemia and although taking supplement, she continues with hypokalemia. Anne admits she has not been taking her potassium as prescribed as it is a large pill. She also reports for the past few days she has been feeling short of breath after going up the stairs. She also reports some nausea. She reports she just took her injection this week on Thursday, and this typically makes her nauseous for the next day. However, this shortness of breath with exertion is new. She also reports she does not recall her last BM. Denies headache, chest pain, palpitations, syncope, weakenss. The following portions of the patient's history were reviewed and updated as appropriate: allergies, current medications, past family history, past medical history, past social history, past surgical history, problem list, and medication reconciliation was completed including current medication and post discharge medication. Review of Systems Constitutional: Negative for chills, diaphoresis, fatigue, fever and unexpected weight change. Respiratory: Positive for shortness of breath. Negative for cough, chest tightness and wheezing. Cardiovascular: Negative for chest pain, palpitations and leg swelling. Gastrointestinal: Positive for constipation and nausea. Negative for abdominal pain, blood in stool, diarrhea, rectal pain and vomiting. Skin: Negative. Neurological: Negative for dizziness, syncope, weakness, light-headedness and numbness. Objective Physical Exam Vitals and nursing note [...] Affect: Mood normal. Behavior: Behavior normal. Assessment/Plan We will cut back chlorthalidone in half for one week. Then stop. Monitor BP, she can continue with the potassium supplement at least once daily as her potassium was low. We will recheck at next visit. Her constipation and exertional shortness of breath may be related to dehydration and hypokalemia. Nausea could be related to hypokalemia, medications, and conipation. Ensure to drink plenty of fluids. Please take potassium supplement. Also discussed fiber. We will trial PPI for 8 weeks to see if this also helps with nausea. As hydroxyzine and potassium can cause GI upset. Discussed to take hydroxyzine sparingly, but we will attempt to stop the potassium with stopping the chlorthalidone. Continue to work on diet and exercise. She will return in one week to re-evaluate symptoms and HTN. Anne was seen today for obesity. Diagnoses and all orders for this visit: Encounter for weight management Anxiety with depression - hydrOXYzine (VISTARIL) 25 mg capsule; Take 1 capsule (25 mg total) by mouth 3 (three) times a day as needed for anxiety. Medication management - Cancel: Basic Metabolic Panel; Future - Basic Metabolic Panel; Future Hypokalemia Constipation, unspecified constipation type Primary hypertension Other orders - pantoprazole (PROTONIX) 40 mg EC tablet; Take 1 tablet (40 mg total) by mouth in the morning. - Discontinue: chlorthalidone (HYGROTON) 25 mg tablet; Take 0.5 tablets (12.5 mg total) by mouth daily. PAL Rivera 02/14/24 0038 documented in this encounter [facility] 01-29-2024 Miscellaneous Notes ----- Message from PAL Rivera sent at 01/29/2024 6:37 AM EDT ----- Please let her know potassium is still low. I sent in supplement for TID ----- Message from PAL Rivera sent at 01/29/2024 6:37 AM EDT ----- Please let her know potassium is still low. I sent in supplement for TID Called patient to let her know about results documented in this encounter [facility] 01-29-2024 Telephone encounter Note ----- Message from PAL Rivera sent at 01/29/2024 6:37 AM EDT ----- Please let her know potassium is still low. I sent in supplement for TID [facility] 01-29-2024 Telephone encounter Note ----- Message from PAL Rivera sent at 01/29/2024 6:37 AM EDT ----- Please let her know potassium is still low. I sent in supplement for TID [facility] 01-29-2024 Telephone encounter Note Called patient to let her know about results [facility] 01-21-2024 Miscellaneous Notes Patient would like to stay at .5mg for now documented in this encounter [facility] 01-21-2024 Telephone encounter Note Patient would like to stay at .5mg for now [facility] 12-22-2023 Miscellaneous Notes ----- Message from PAL Rivera sent at 12/22/2023 9:40 AM EDT ----- Can we clarify if she has been taking the potassium 20 meq daily. Her potassium remains low. Called patient, no answer left a message to call back Patient called back into the office and did state that she is take the potassium daily. Please have her increase it and take it twice daily. We will recheck at her next visit Called patient, no answer left a message to call back. Patient called back and I informed her. She stated understanding. documented in this encounter [facility] 12-22-2023 Telephone encounter Note ----- Message from PAL Rivera sent at 12/22/2023 9:40 AM EDT ----- Can we clarify if she has been taking the potassium 20 meq daily. Her potassium remains low. [facility] 12-22-2023 Telephone encounter Note Called patient, no answer left a message to call back [facility] 12-22-2023 Telephone encounter Note Patient called back into the office and did state that she is take the potassium daily. [facility] 12-22-2023 Telephone encounter Note Please have her increase it and take it twice daily. We will recheck at her next visit [facility] 12-22-2023 Telephone encounter Note Called patient, no answer left a message to call back. [facility] 12-22-2023 Telephone encounter Note Patient called back and I informed her. She stated understanding. [facility] 12-18-2023 History of Present illness Narrative Patient was seen today for blood draw. Patient tolerated well. VITALS bp 124/68 pulse 101 sp02 99 documented in this encounter [facility] 12-14-2023 Miscellaneous Notes I placed order for BMP. I want to make sure her potassium is not too low causing the nausea. documented in this encounter [facility] 12-14-2023 Telephone encounter Note I placed order for BMP. I want to make sure her potassium is not too low causing the nausea. [facility] 12-02-2023 Miscellaneous Notes Anne called to inform provider she started the Wegovy injections and is experiencing some nausea with it. She would like nausea medication sent into [facility] in [place]. Medication sent Patient notified documented in this encounter [facility] 12-02-2023 Telephone encounter Note Anne called to inform provider she started the Wegovy injections and is experiencing some nausea with it. She would like nausea medication sent into [facility] in [place]. [facility] 12-02-2023 Telephone encounter Note Medication sent [facility] 12-02-2023 Telephone encounter Note Patient notified [facility] 11-04-2023 History of Present illness Narrative Subjective Patient ID: Anne Shah is a 23 y.o. female. HPI Anne presents to the office for hypertension follow [...] on weight for the past 6 months, Anne would like to see if we can qualify for Wegovy. Medication sent. FU 3 months. Anne was seen today for follow-up. Diagnoses and [...] the skin every 7 days. PAL Rivera 11/07/23 4904 [facility] Miscellaneous Notes Anne called with complaints of diarrhea X2 days and would a prescription sent to pharmacy to help relieve it. Rx sent. Patient notified. documented in this encounter [facility] 09-17-2023 Telephone encounter Note Anne called with complaints of diarrhea X2 days and would a prescription sent to pharmacy to help relieve it. [facility] 09-17-2023 Telephone encounter Note Rx sent. [facility] 09-17-2023 Telephone encounter Note Patient notified. [facility] 09-15-2023 Miscellaneous Notes ----- Message from PAL Rivera sent at [...] know about results documented in this encounter [facility] 09-15-2023 Telephone encounter Note ----- Message from PAL Rivera sent at 09/15/2023 9:23 AM EST ----- Please let her know cholesterol is elevated, she should work on diet and exercise. Potassium is low, I sent in supplement for 2 weeks. We should recheck at next appointment. Other labs are normal. [facility] 09-15-2023 Telephone encounter Note Tried to call patient but no answer so I left a voicemail. [facility] 09-15-2023 Telephone encounter Note Patient called into the office and I let her know about results [facility] Evaluation note Diagnosis LGSIL on Pap smear of cervix documented in this encounter [facility]* Diagnosis Nausea- Primary Nausea alone [facility] Diagnosis Primary hypertension Unspecified essential hypertension Encounter for weight management Obesity (BMI 30-39.9) Mixed hyperlipidemia [facility] Diagnosis Hypokalemia- Primary Hypopotassemia documented [facility]* Diagnosis Primary hypertension Unspecified essential hypertension Encounter for weight management Obesity (BMI 30-39.9) Mixed hyperlipidemia [facility] Diagnosis Primary hypertension- Primary Unspecified essential hypertension Anxiety with depression Medication management Hypokalemia Hypopotassemia Constipation, unspecified constipation type Encounter for weight management Nausea Nausea alone [facility] Diagnosis Primary hypertension Unspecified essential hypertension Encounter for weight management Obesity (BMI 30-39.9) Mixed hyperlipidemia [facility] Diagnosis Primary hypertension Unspecified essential hypertension Encounter for weight management Obesity (BMI 30-39.9) Mixed hyperlipidemia [facility]* Diagnosis Primary hypertension- Primary Unspecified essential hypertension Hypokalemia Hypopotassemia Encounter for weight management Obesity (BMI 30-39.9) [facility]* Diagnosis Primary hypertension- Primary Unspecified essential hypertension Obesity (BMI 30-39.9) Mixed hyperlipidemia Chronic fatigue Other malaise and fatigue Hives Unspecified urticaria [facility] Diagnosis Mixed hyperlipidemia- Primary Encounter for weight management Obesity (BMI 30-39.9) Primary hypertension Unspecified essential hypertension [facility]* Diagnosis Hypokalemia- Primary Hypopotassemia Nausea Nausea alone [facility]* Diagnosis Primary hypertension- Primary Unspecified essential hypertension Encounter for weight management Obesity (BMI 30-39.9) Mixed hyperlipidemia [facility]* Diagnosis Dysuria- Primary Acute cystitis with hematuria [facility]* Diagnosis Hives- Primary Unspecified urticaria Chronic fatigue Other malaise and fatigue [facility]* Diagnosis Anxiety with depression- Primary Obesity (BMI 30-39.9) Mixed hyperlipidemia Primary hypertension Unspecified essential hypertension Sleep disturbance Unspecified sleep disturbance Constipation, unspecified constipation type [facility]* Diagnosis Wellness examination- Primary Primary hypertension Unspecified essential hypertension Mixed hyperlipidemia Anxiety with depression Chronic fatigue Other malaise and fatigue [facility]* Diagnosis Wellness examination- Primary Chronic fatigue Other malaise and fatigue Essential hypertension Unspecified essential hypertension Mixed hyperlipidemia Anxiety with depression [facility]* Diagnosis Excessive daytime sleepiness- Primary Generalized anxiety disorder Attention deficit hyperactivity disorder (ADHD), combined type [facility]* Diagnosis Restless leg- Primary Restless legs syndrome (RLS) Vertigo Dizziness and giddiness [facility] Diagnosis Restless leg Restless legs syndrome (RLS) [facility] Diagnosis Primary hypertension Unspecified essential hypertension [facility] Diagnosis Excessive daytime sleepiness [facility] Diagnosis Primary hypertension Unspecified essential hypertension [facility]* Diagnosis ASMITA (obstructive sleep apnea)- Primary Obstructive sleep apnea (adult) (pediatric) Hypersomnia Hypersomnia, unspecified Rhinitis medicamentosa Other diseases of nasal cavity and sinuses documented [facility] System[facility]ructionsNot [facility] [...] on filedocumented in this encounter [facility]* Attachments The following attachments cannot be sent through Care Everywhere. * Mediterranean Diet ([place]) * High Fiber Diet ([place]) documented in [facility] System[facility]ructionsNot on file documented in this encounterPro[facility] SystemInstructionsNot on file documented in this [facility]Pro[facility] System[facility]ructions* Attachments The following attachments cannot be sent through Care Everywhere. * Low Cholesterol, Saturated Fat, and Trans Fat Diet ([place]) * High Potassium Diet ([place]) documented in [facility] SystemInstructionsNot on file documented in this encounterPro[facility] SystemInstructionsNot on file documented in this encounterPro[facility] Health SystemInstructionsNot on file documented in this encounterPro[facility]ica Health SystemInstructionsNot on file documented in this encounterPro[facility] SystemInstructionsNot on file documented in this encounterPro[facility] SystemInstructionsNot on file documented in this [facility]Pro[facility] SystemInstructions* Attachments The following attachments cannot be sent through Care Everywhere. * Vertigo (a type of dizziness) ([place]) * Exercises (maneuvers) for benign paroxysmal positional vertigo ([place]) documented [facility] System[facility]ructionsNot on file documented [facility] SystemReason for [facility] Narrative* Misc (Routine) - Closed Specialty Diagnoses / Procedures Referred By Contac t Referred To Contact Diagnoses Excessive daytime sleepiness Procedures PSG Diagnostic PSG Diagnostic Werner Moreira MD [address] [place] [id number] Phone: tel: fax: Referral ID Status Reason Start Date Expiration Date Visits Re quested Visits Authorized [id number] Closed 12/20/2024 12/20/2025 1 1 [facility] Misc (Routine) - Closed Specialty Diagnoses / Procedures Referred By Contac t Referred To Contact Diagnoses Excessive daytime sleepiness Procedures [place] [address] [place] [phone] Phone: tel: fax: Referral ID Status Reason Start Date Expiration Date Visits Re quested Visits Authorized [id number] Closed 12/20/2024 12/20/2025 1 1 [facility] Summary Purpose Family History No Family History [...] VENOUS RIGHT Harshal Roldan APRN - NP [address] [place] [address] Specialty Diagnoses / Procedures Referred By Contac t Referred To Contact Diagnoses Primary hypertension Encounter for weight management Obesity (BMI 30-39.9) Mixed hyperlipidemia Glover, JONO Monteneg[place]-MANAGER FIBER [address] [place] [phone] Referral ID Status Reason Start Date Expiration Date V isits Requested Visits Authorized [id number] Pending Review 1 1 Referral ID Status Reason Start Date Expiration Date V isits Requested Visits Authorized [id number] Pending Review 03/10/2024 03/10/2025 1 1 Specialty Diagnoses / Procedures Referred By Contac t Referred To Contact Diagnoses Encounter for weight management Obesity (BMI 30-39.9) Musa GloverYOANNA starrN-MANAGER FIBER [address] [place] [phone] Referral ID Status Reason Start Date Expiration Date V isits Requested Visits Authorized [id number] Pending Review 1 1 Assessments Diagnosis Pain of right lower leg Pain in limb Additional Source Comments INFORMATION SOURCE (unrecogn ized section and content) DATE [facility]ATED [facility] DATE CREATED AUTHOR AUTHOR'S ORGANIZ ATION 11/14/2022 [facility] DATE CREATED AUTHOR AUTHOR'S ORGANIZ ATION 05/21/2024 [facility] DATE CREATED AUTHOR AUTHOR'S ORGANIZ ATION 12/17/2024 [facility] DATE CREATED AUTHOR AUTHOR'S ORGANIZ ATION 03/23/2025 [facility] DATE CREATED AUTHOR AUTHOR'S ORGANIZ ATION 04/13/2025 [facility] DATE CREATED AUTHOR AUTHOR'S ORGANIZ ATION 05/07/2025 [facility] Reason for Visit (unrecogniz ed section and content) Status Reason Specialty Diagnoses / Procedures Referred By Contact Referred To Contact Pending Review Radiology Diagnoses Pain of right lower leg Procedures VL DUP LOWER EXTREMITY VENOUS RIGHT Harshal Roldan APRN - DISPATCHER [employer] [address] [place] [address] Reason Comments Abnormal Pap Smear Reason Onset Date Comments Med Refill 09/07/2024 Reason Onset Date Comments Diarrhea 09/17/2023 Reason Comments Obesity Reason Comments Med Refill Reason Onset Date Comments Med Refill 03/03/2024 Reason Comments Med Refill Reason Comments Follow-up Reason Comments Hypertension GI Problem Reason Onset Date Comments Medication Problem 12/02/2023 Reason Comments Urinary Tract Infection Reason Onset Date Comments Results 04/27/2024 Reason Onset Date Comments Med Refill 05/10/2024 Reason Onset Date Comments Med Refill 06/13/2024 Reason Comments Follow-up HTN Reason Comments wellness Reason Comments New Patient Hard time falling as leepSleeping excessive amounts of timeWaking up sweaty most nightsNo previous sleep studies Specialty Diagnoses / Procedures Referred By Regina sheets Referred To Contact Sleep Medicine Diagnoses Excessive daytime sleepiness Manohar Warner MD [address] [facility] [place] [address] Phone: tel: fax: [place] [address] [place] [address] [facility] [place] [address] Phone: tel: fax: Referral ID Status Reason Start Date Expiration Date Visits Requested Visits Authorized [id number] Pending Review Specialty Services Required 06/30/2025 1 1 Reason Onset Date Comments Sleep Lab 12/21/2024 PSG/MSLT Reason Comments Follow-up HTN and Dizziness Reason Onset Date Comments Results 02/17/2025 Reason Comments Follow-up PSG 03/21/25MSLT 03/22 Care Teams (unrecognized sec tion and content) Director Education Relationship Specialty Start Date End Date Adams Glover APRN-CNP [address] [place] [phone] PCP - General Nurse Practitioner 03/09/24 Director Education Relationship Specialty Start Date End Date Adams Glover APRN-CNP [address] [place] [phone] PCP - General Nurse Practitioner 03/09/24 Director Education Relationship Specialty Start Date End Date Adams Glover APRN-MANAGER FIBER PCP - General Nurse Practitioner 07/07/23 Director Education Relationship Specialty Start Date End Date GloverJuju coynendraJONOKelsyMANAGER FIBER PCP - General Nurse Practitioner 07/07/23 Director Education Relationship Specialty Start Date End Date GloverAdams coyne APRNKelsyMANAGER FIBER PCP - General Nurse Practitioner 07/07/23 Director Education Relationship Specialty Start Date End Date GloverAdams coyne APRNKelsyMANAGER FIBER PCP - General Nurse Practitioner 07/07/23 Director Education Relationship Specialty Start Date End Date GloverAdams coyne APRNKelsyMANAGER FIBER PCP - General Nurse Practitioner 07/07/23 Director Education Relationship Specialty Start Date End Date GloverAdams coyne APRN-MANAGER FIBER PCP - General Nurse Practitioner 07/07/23 Director Education Relationship Specialty Start Date End Date Adams Glover APRN-MANAGER FIBER PCP - General Nurse Practitioner 07/07/23 Director Education Relationship Specialty Start Date End Date Adams Glover APRN-MANAGER FIBER PCP - General Nurse Practitioner 07/07/23 Director Education Relationship Specialty Start Date End Date Adams Glover APRN-MANAGER FIBER PCP - General Nurse Practitioner 07/07/23 Director Education Relationship Specialty Start Date End Date Adams Glover APRN-MANAGER FIBER PCP - General Nurse Practitioner 07/07/23 Director Education Relationship Specialty Start Date End Date Adams Glover APRN-MANAGER FIBER PCP - General Nurse Practitioner 07/07/23 Director Education Relationship Specialty Start Date End Date Adams Glover APRN-MANAGER FIBER PCP - General Nurse Practitioner 07/07/23 Director Education Relationship Specialty Start Date End Date Adams Glover APRN-MANAGER FIBER PCP - General Nurse Practitioner 07/07/23 Director Education Relationship Specialty Start Date End Date Adams Glover APRN-MANAGER FIBER [address] [place] [phone] PCP - General Nurse Practitioner 03/09/24 Director Education Relationship Specialty Start Date End Date Adams Glover APRN-MANAGER FIBER PCP - General Nurse Practitioner 07/07/23 Director Education Relationship Specialty Start Date End Date Adams Glover APRN-MANAGER FIBER [address] [place] [phone] PCP - General Nurse Practitioner 03/09/24 Director Education Relationship Specialty Start Date End Date Adams Glover APRN-MANAGER FIBER PCP - General Nurse Practitioner 07/07/23 Director Education Relationship Specialty Start Date End Date Juju GloverndraYOANNAN-MANAGER FIBER [address] [place] [address], [place] [phone] PCP - General Nurse Practitioner 03/09/24 Director Education Relationship Specialty Start Date End Date GloverJuju coynendraYOANNAN-MANAGER FIBER [address] [place] [address], [place] [phone] PCP - General Nurse Practitioner 03/09/24 Director Education Relationship Specialty Start Date End Date Juju GloverndYOANNA starrN-MANAGER FIBER [address] [place] [address], [place] [phone] PCP - General Nurse Practitioner 03/09/24 Director Education Relationship Specialty Start Date End Date GloverJujuAdamsYOANNAN-MANAGER FIBER [address] [place] [address], [place] [phone] PCP - General Nurse Practitioner 03/09/24 Director Education Relationship Specialty Start Date End Date Adams Glover APRN-MANAGER FIBER [address] [place] [address], [place] [phone] PCP - General Nurse Practitioner 03/09/24 Director Education Relationship Specialty Start Date End Date Adams Glover APRN-MANAGER FIBER [address] [place] [address], [place] [phone] PCP - General Nurse Practitioner 03/09/24 Director Education Relationship Specialty Start Date End Date Adams Glover APRN-MANAGER FIBER [address] [place] [address], [place] [phone] PCP - General Nurse Practitioner 03/09/24 Director Education Relationship Specialty Start Date End Date Adams Glover APRN-MANAGER FIBER [address] [place] [address], [place] [phone] PCP - General Nurse Practitioner 03/09/24 Director Education Relationship Specialty Start Date End Date Adams Glover SUPERVISOR POULTRY HATCHERY-MANAGER FIBER [address] [place] [address], [place] [phone] PCP - General Nurse Practitioner 03/09/24 Director Education Relationship Specialty Start Date End Date Adams Glover APRN-MANAGER FIBER [address] [place] [address], [place] [phone] PCP - General Nurse Practitioner 03/09/24 Director Education Relationship Specialty Start Date End Date Adams Glover APRN-MANAGER FIBER [address] [place] [address], [place] [phone] PCP - General Nurse Practitioner 03/09/24 Director Education Relationship Specialty Start Date End Date Adams Glover SUPERVISOR POULTRY HATCHERY-MANAGER FIBER [address] [place] [address], [place] [phone] PCP - General Nurse Practitioner 03/09/24 Director Education Relationship Specialty Start Date End Date Adams Glover APRN-MANAGER FIBER [address] [place] [address], [place] [phone] PCP - General Nurse Practitioner 03/09/24 Director Education Relationship Specialty Start Date End Date Adams GloverJONO-ANTHONY [address] [place] [phone] PCP - General Nurse Practitioner 03/09/24 FOR RECORDS PERTAINING TO PATIENTS WHO ARE [...] BE BASED ON THE PRIMARY CLINICAL RECORDS. [facility] [employer] [facility]. provides no warranty or guarantee of the accuracy or completeness of information in this document.
--- OUTSIDE RECORDS SUMMARY | 2025-05-22 21:09 | XMS_ITS | Encounter Summary ---
Author Organization [facility] tem Address [facility] [id number] [address] [place] [address] Care Team Providers Care Sheet Rock Applier Name Role Phone Moni See MUSICAL INSTRUMENT MAKER OR REPAIRER-[facility] Primary Care Provider Encounter Details Date Type Department Care Team (Late st Contact Info) Description 03/10/2024 Orders Only [facility] [address] [place] [phone] Moni See APRN-COTTON PRESSER [address] [place] [address], [place] [address] Social History Tobacco Use Types [...] often do you attend chur ch or alevism services? More than 4 times per year 05/06/2021 Do you belong to any clubs o r organizations such as pentecostalism groups, unions, fraternal or athletic groups, or [...] Answer Date Recorded Total Score 0 07/02/2023 [facility] of Occupat ional Health - Occupational Stress [...] Recorded Do you need help finding a [facility] career center and/or a training program? [...] EST Telemedicine [facility] [address] [facility] [address] [place] [address] Domitila Selby MD [address] [facility] [address] [place] [address] 08/08/2025 2:30 PM EST Office Visit [facility] [address] [facility] [address] [place] [address] Marta Hidalgo DO [address] [facility], [address] [place] [address] documented as of this encounter Visit Diagnoses Not on filedocumented in this encounter Additional Health Concerns Assessment Noted Time PHQ-9 Depression Total Score: 0 07/02/20 23 3:28 PM EDT documented as of this encounter Care Teams Sheet Rock Applier Relationship Specialty Start Date End Date Moni See APRN-CNP [address] [place] [address], [place] [phone] PCP - General Nurse Practitioner 03/09/24 documented as of this encounter
--- OUTSIDE RECORDS SUMMARY | 2025-05-22 21:09 | XMS_ITS | Encounter Summary ---
Author Organization [facility] Address [id number] [address] [place] [address] Care Team Providers Care Phonograph Needle Tip Maker Name Role Phone SeeMoni coyne JONO-FILE CONVERSION OPERATOR Primary Care Provider Encounter Details Date Type Department Care Team (Late st Contact Info) Description 12/14/2023 Refill [facility] [address] [place] [address] [address] [address] [place] [address] Nicoalsa Cuba CMA Encounter for weight management; Obesity (BMI 30-39.9); Mixed hyperlipidemia; Primary hypertension Social History Tobacco Use Types Packs/Day Years [...] often do you attend chur ch or sabianist services? More than 4 times per year 05/06/2021 Do you belong to any clubs o r organizations such as christian groups, unions, fraternal or athletic groups, or [...] Answer Date Recorded Total Score 0 07/02/2023 [facility] of Occupat ional Health - Occupational [...] SLEEP MEDICINE [address] [facility] [address] [place] [phone] [place] [address] [place] [address] [address] [place] [address] 08/08/2025 2:30 PM EST Office Visit [facility] [address] [facility] [address] [place] [address] Marta Hidalgo DO [address] [facility], [address] [place] [address] documented as of this encounter Visit Diagnoses Diagnosis Encounter for weight management Obesity (BMI 30-39.9) Mixed hyperlipidemia Primary hypertension Unspecified essential hypertension documented in this encounter Additional Health Concerns Assessment Noted Time PHQ-9 Depression Total Score: 0 07/02/20 23 3:28 PM EDT documented as of this encounter Care Teams Phonograph Needle Tip Maker Relationship Specialty Start Date End Date Moni See APRN-ANTHONY [address] [place] [address], [facility] [place] [phone] PCP - General Nurse Practitioner 7/10/24 documented as of this encounter
--- OUTSIDE RECORDS SUMMARY | 2025-05-22 21:09 | XMS_ITS | Encounter Summary ---
Author Organization [facility] Address [facility] [place][id number] [address] [place] [address] Care Team Providers Care Librarian Helper Name Role Phone Moni See SEE WHEELER-FLOORPERSON Primary Care Provider Reason for Visit * Reason Comments Med Refill Encounter Details Date Type Department Care Team (Late st Contact Info) Description 02/19/2021 Refill [facility] [address] [facility] [place] [phone] Lore Chong, SEE WHEELER-FLOORPERSON [address] [facility] [address], [place], [place] [phone] Anxiety with depression Social History Tobacco Use [...] have Coronavirus / COVID-19? No / Unsure 02/06/2021 1:00 PM EDT documented as of this encounter Miscellaneous Notes * Telephone Encounter - PAL Bautista - 02/19/2021 7:31 PM EDT Send this to trisha. This has been filled recently documented in this encounter Plan of Treatment Upcoming Encounters Date Type Department Care Team (Late st Contact Info) Description 07/19/2025 3:00 PM EST Telemedicine [facility] [address] [facility] [address] [place] [phone] Domitila Selby MD [address] [facility] [address] [place] [address] 08/08/2025 2:30 PM EST Office Visit [facility] [address] [facility] [address] [place] [address] Marta Hidalgo DO [address] [facility], [address] [place] [address] documented as of this encounter Visit Diagnoses Diagnosis Anxiety with depression documented in this encounter Additional Health Concerns Assessment Noted Time PHQ-9 Depression Total Score: 13 021 10:00 AM EST documented as of this encounter Care Teams Librarian Helper Relationship Specialty Start Date End Date Moni See APRN-CNP [address] [place] [address], [place] [phone] PCP - General Nurse Practitioner 03/09/24 documented as of this encounter
--- OUTSIDE RECORDS SUMMARY | 2025-05-22 21:09 | XMS_ITS | Encounter Summary ---
Author Organization [employer] tem Address [id number] [address] [place] [address] Care Team Providers Care Sales Operations Director Name Role Phone Moni See APRN-MARKET SPECIALIST Primary Care Provider Reason for Visit * Reason Onset Date Comments Med Refill 10/25/2019 Encounter Details Date Type Department Care Team (Late st Contact Info) Description 10/25/2019 Refill [facility] [address] [place] [address] [place] [phone] Francisco Domínguez CMA Anxiety with depression Social History Tobacco Use Types Packs/Day Years Used Date Smoking Tobacco: Never Smokeless Tobacco: Never Alcohol Use Standard Drinks/Week Comments No 0 (1 standard drink = 0.6 oz pur e alcohol) PHQ-2 Answer Date Recorded PHQ-2 Score 22 09/28/2019 Childcare Answer Date Recorded Childcare Unknown 02/02/2019 [...] PM EST Telemedicine [facility] [address] [address] [place] [phone] Domitila Selby MD [address] [facility] [address] [place] [address] 08/08/2025 2:30 PM EST Office Visit [facility] [address] [facility] [place] [phone] Marta Hidalgo DO [address] [facility], [address] [place] [address] documented as of this encounter Visit Diagnoses Diagnosis Anxiety with depression documented in this encounter Additional Health Concerns Assessment Noted Time PHQ-9 Depression Total Score: 22 020 7:00 AM EST documented as of this encounter Care Teams Sales Operations Director Relationship Specialty Start Date End Date Moni See APRN-ANTHONY [address] [place] [address], [place] [phone] PCP - General Nurse Practitioner 03/09/24 documented as of this encounter
--- OUTSIDE RECORDS SUMMARY | 2025-05-22 21:09 | XMS_ITS | Encounter Summary ---
Author Organization [facility] [facility] tem Address [facility]-[id number] [address] [place] [address] Care Team Providers Care Golf Shoe Spike Assembler Name Role Phone Moni See CREDIT CHECKER-PACK TRAIN DRIVER Primary Care Provider Reason for Visit * Reason Onset Date Comments Med Refill 04/23/2021 Encounter Details Date Type Department Care Team (Late st Contact Info) Description 04/23/2021 Refill [facility] [address] [place] [address] [place] [phone] Rashmi Henson APRN-PACK TRAIN DRIVER [address] [facility] [address] [place], [place] [phone] Generalized anxiety disorder Social History Tobacco Use [...] EST Telemedicine [facility] [address] [facility] [address] [place] [phone] Domitila Selby MD [address] [facility] [address] [place] [address] 08/08/2025 2:30 PM EST Office Visit [facility] [address] [facility] [address] [place] [phone] Marta Hidalgo DO [address] [facility], [address] [place] [address] documented as of this encounter Visit Diagnoses Diagnosis Generalized anxiety disorder documented in this encounter Additional Health Concerns Assessment Noted Time PHQ-9 Depression Total Score: 13 021 10:00 AM EST documented as of this encounter Care Teams Golf Shoe Spike Assembler Relationship Specialty Start Date End Date Moni See APRN-ANTHONY [address] [place], [place] [address] [address] PCP - General Nurse Practitioner 03/09/24 documented as of this encounter
--- OUTSIDE RECORDS SUMMARY | 2025-05-22 21:09 | XMS_ITS | Encounter Summary ---
Author Organization [facility] Address [id number][id number] [address] [place] [address] Care Team Providers Care Home Improvement Installer Name Role Phone Moni See PRINTING PRESS OPERATOR APPRENTICE-CONSOLE ASSEMBLER Primary Care Provider Reason for Visit * Reason Onset Date Comments Med Refill 04/27/2021 Encounter Details Date Type Department Care Team (Late st Contact Info) Description 04/27/2021 Refill [facility] [address] [place] [address] [place] [phone] Rashmi Henson APRN-CONSOLE ASSEMBLER [address] [facility] [address] [place], [place] [phone] Anxiety with depression Social History Tobacco Use [...] SLEEP MEDICINE [address] [facility] [address] [place] [phone] Domitila Selby MD [address] [facility] [address] [place] [address] 08/08/2025 2:30 PM EST Office Visit [facility] [address] [facility] [address] [place] [phone] Marta Hidalgo DO [address] [facility], [address] [place] [address] documented as of this encounter Visit Diagnoses Diagnosis Anxiety with depression documented in this encounter Additional Health Concerns Assessment Noted Time PHQ-9 Depression Total Score: 13 021 10:00 AM EST documented as of this encounter Care Teams Home Improvement Installer Relationship Specialty Start Date End Date Moni See APRN-ANTHONY [address] [place], [place] [address], [place] [address] PCP - General Nurse Practitioner 03/09/24 documented as of this encounter
--- OUTSIDE RECORDS SUMMARY | 2025-05-22 21:09 | XMS_ITS | Encounter Summary ---
Author Organization [facility] [employer] [facility] Address [facility] [id number] [address] [place] [address] Care Team Providers Care Weight And Test Bar Clerk Name Role Phone Moni See NATURAL GAS ENGINEER-APPRENTICESHIP REPRESENTATIVE Primary Care Provider Reason for Visit * Reason Onset Date Comments Med Refill 06/27/2021 Encounter Details Date Type Department Care Team (Late st Contact Info) Description 06/27/2021 Refill [facility] [address] [place] [address] [place] [phone] Rashmi Henson APRN-CNP [address] [facility] [address] [place], [place] [phone] Generalized anxiety disorder Social History Tobacco Use [...] often do you attend chur ch or islam services? More than 4 times per year [...] Answer Date Recorded Total Score 15 05/06/2021 [facility] of Occupat ional Health - Occupational [...] EST Telemedicine [facility] [address] [facility] [address] [place] [phone] [place] [address] [place] [address] [address] [place] [address] 08/08/2025 2:30 PM EST Office Visit [facility] [address] [facility] [address] [place] [address] Marta Hidalgo DO [address] [facility], [address] [place] [address] documented as of this encounter Visit Diagnoses Diagnosis Generalized anxiety disorder documented in this encounter Additional Health Concerns Assessment Noted Time PHQ-9 Depression Total Score: 15 021 10:57 AM EDT documented as of this encounter Care Teams Weight And Test Bar Clerk Relationship Specialty Start Date End Date Moni See APRN-ANTHONY [address] [place] [address], [facility] [place] [address] PCP - General Nurse Practitioner 03/09/24 documented as of this encounter
--- OUTSIDE RECORDS SUMMARY | 2025-05-22 21:09 | XMS_ITS | Encounter Summary ---
Author Organization [employer] Address [facility] [id number] [address] [place] [address] Care Team Providers Care Program Manager Rn Name Role Phone Moni See JONO-GROOVING LATHE TENDER Primary Care Provider Reason for Visit * Reason Onset Date Comments Med Refill 01/16/2021 Encounter Details Date Type Department Care Team (Late st Contact Info) Description 01/16/2021 Refill [facility] [address] [place] [phone] Zachary Johnson CMA Mild episode of recurrent major depressive disorder ([facility]) Social History Tobacco Use Types Packs/Day [...] PM EST Telemedicine [facility] [address] [place] [address] [address] [place] [phone] Domitila Selby MD [address] [facility] [address] [place] [address] 08/08/2025 2:30 PM EST Office Visit [facility] [address] [facility] [address] [place] [phone] Marta Hidalgo DO [address] [facility], [address] [place] [address] documented as of this encounter Visit Diagnoses Diagnosis Mild episode of recurrent major depressive disorder documented in this encounter Additional Health Concerns Assessment Noted Time PHQ-9 Depression Total Score: 13 021 10:00 AM EST documented as of this encounter Care Teams Program Manager Rn Relationship Specialty Start Date End Date Moni See APRN-ANTHONY [address] [place] [address], [place] [phone] PCP - General Nurse Practitioner 03/09/24 documented as of this encounter
--- OUTSIDE RECORDS SUMMARY | 2025-05-22 21:09 | XMS_ITS | Encounter Summary ---
Author Organization [employer] tem Address [facility] [place][id number] [address] [place] [address] Care Team Providers Care Industrial Conveyor Belt Repairer Name Role Phone SeeMoni coyne JONO-SULPHATE TESTER Primary Care Provider Encounter Details Date Type Department Care Team (Late st Contact Info) Description 11/26/[address] [facility] [address] [place] [address] [place] [address] Millicent Randall CNA Social History Tobacco Use Types Packs/Day Years [...] often do you attend chur ch or amish services? More than 4 times per year 05/06/2021 Do you belong to any clubs o r organizations such as denominational groups, unions, fraternal or athletic groups, or [...] Answer Date Recorded Total Score 0 07/02/2023 [facility] - Occupational Stress Questionnaire Answer Date [...] Recorded Do you need help finding a [facility] and/or a training [...] encounter Miscellaneous Notes * Telephone Encounter - Millicent Randall CNA - 11/26/2023 3:28 PM EDT Anne called to request Wegovy be sent to [facility] due to [facility] unable to get the medication. * Telephone Encounter - PAL Rivera - 11/26/2023 3:28 PM EDT Order placed documented in this encounter Plan of Treatment Upcoming Encounters Date Type Department Care Team (Late st Contact Info) Description 07/19/2025 3:00 PM EST Telemedicine [facility] [address] [facility] [address] [place] [address] Domitila Selby MD [address] [facility] [address] [place] [address] 08/08/2025 2:30 PM EST Office Visit [facility] [address] [place] [phone] Marta Hidalgo DO [address] [facility], [address] [place] [address] documented as of this encounter Visit Diagnoses Not on filedocumented in this encounter Additional Health Concerns Assessment Noted Time PHQ-9 Depression Total Score: 0 07/02/20 23 3:28 PM EDT documented as of this encounter Care Teams Industrial Conveyor Belt Repairer Relationship Specialty Start Date End Date Moni See APRN-ANTHONY [address] [place] [address], [place] [address] PCP - General Nurse Practitioner 03/09/24 documented as of this encounter
[2025-05-29 14:08] LABS: Age Gdln ACOG Testing Note (.); IGP, rfx Aptima HPV ASCU Note (.)
== END 2025-05-22 21:06 | disposition home or self-care (01) ==
LOC: LAB 21:05
PROVIDERS: Visit Provider Obstetrics & Gynecology
DX: Z01.419 Encounter for gynecological examination (general) (routine) without abnormal findings (principal); R87.610 Atypical squamous cells of undetermined significance on cytologic smear of cervix (ASC-US); R87.612 Low grade squamous intraepithelial lesion on cytologic smear of cervix (LGSIL)
CPT/HCPCS: 88175